=== PATIENT | female | born 1950 | race Caucasian/White ===

== ENCOUNTER 2019-08-28 06:11 | Day surgery (SDC) | payer MEDICARE, OTHER, SELFPAY ==
[2019-08-27 08:10] VITALS: BMI 21.9
[2019-08-28] MEDS: sodium chloride 0.9% 1,000 ML 30 ML IV (06:30)
[2019-08-28 06:40] VITALS: BP 124/68; PULSE 101; RESP 18; TEMP 36.8; O2SAT 99
--- NOTE | 2019-08-28 06:43 | ANES.PREANES ---
Pre-Anesthetic Assessment Pre-Anesthetic Assessment: Height/Weight: Height 1.57 m Weight 54.431 kg Temp Pulse Resp BP Pulse Ox 98.3 F 101 H 18 124/68 99 08/28/19 06:40 08/28/19 06:40 08/28/19 06:40 08/28/19 06:40 08/28/19 06:40 Preop Diagnosis: colon polyps Proposed Procedure: Operation Date: 08/28/19 07:00 Proposed Procedures p Colonoscopy(Not Applicable) - Alvino Hernandez MD Familial anesthetic complications: NO familial or personal history of problems with aneshthesia Was Beta Renita taken within 24 hours: N/A Last intake: Intake Last Liquid Date 08/28/19 Last Liquid Time 23:00 Last Solid Date 08/26/19NO Last Solid Time 18:00 Social: Social History: Tobacco (Former smoker - Quit 2015) and No alcohol Exam: Pre-Anes Outpt Exam: alert, oriented x 3, clear to auscultation bilaterally and regular rate & rhythm Airway: Cervical ROM: Other (two surgeries on neck - mildly restricted extensions) MP: 2 Additional comments: Dentures, has had epiglottis cancer Pulmonary: Pulmonary: COPD Comments: Hx of lung cancer - RUL resected, not on oxygen CV/HEM: CV/HEM: None reported : : None reported Hepatic: Hepatic: None reported GI: GI: None reported Metabolic: Metabolic: None reported Musc/skel: Musc/skel: None reported Neuropsych: Neuropsych: None reported Anesthetic Plan: ASA status: III Anesthesia: MAC Risk of > 500 ml blood loss (7ml/kg in children): No PFSH Anesthesia PFSH: Family History (Updated 08/27/19 @ 07:56 by Natalya Ferrell) Other Tuberculosis Social History (Updated 08/27/19 @ 08:01 by Natalya Ferrell) Smoking and tobacco status: former smoker Quit status (tobacco): has quit using tobacco Second hand smoke exposure: No Smoking risk assessment/counseling performed?: No Alcohol intake: current Alcohol intake frequency: few times a week Substance/Drug Use: never Desire information about substance/drug rehabilitation?: No Counseling given: No Lives independently: Yes Household members: none History of recent travel: No Data Anesthesia Cardiac Studies: No Data to Display
[2019-08-28] MEDS: sodium chloride 0.9% 1,000 ML 30 ML (06:47)
--- NOTE | 2019-08-28 07:03 | PM.HPUD ---
H&P update H&P Update: DATE OF SURGERY/PROCEDURE: 08/28/19 DATE H&P PERFORMED: 07/27/19 PLANNED PROCEDURE: Operation Date: 08/28/19 07:00 Proposed Procedures p Colonoscopy(Not Applicable) - Alvino Hernandez MD Full H&P HPI: PLANNED PROCEDURE: colonoscopy Perinent History: Family History: Family History (Updated 08/27/19 @ 07:56 by Natalya Ferrell) Other Tuberculosis Social History: Social History Smoking and tobacco status: former smoker Quit status (tobacco): has quit using tobacco Second hand smoke exposure: No Smoking risk assessment/counseling performed?: No Alcohol intake: current Alcohol intake frequency: few times a week Substance/Drug Use: never Desire information about substance/drug rehabilitation?: No Counseling given: No Lives independently: Yes Household members: none History of recent travel: No Pertinent Exam Findings: PHYSICAL EXAM: alert and oriented x 3 OTHER PERTINENT EXAM FINDINGS: Abdomen: soft A&P Assessment and plan (1) H/O adenomatous polyp of colon: colonoscopy under MAC Procedure, risks and benefits have been discussed with the patient Status: Acute Code(s): Z86.010 - Personal history of colonic polyps
[2019-08-28 07:25] VITALS: BP 93/66; PULSE 91; RESP 16; TEMP 36.4; O2SAT 100
--- NOTE | 2019-08-28 07:31 | ANE.PACU ---
 Inpatient post-anesthesia follow up: Vital signs: Temperature 97.6 F Pulse Rate [Apical ] 91 Respiratory Rate 16 Blood Pressure [Le ft Arm] 93/66 Pulse Oximetry 100 Oxygen Delivery Me thod Nasal Cannula Oxygen Flow Rate 3.0 Fraction of Inspir ed Oxygen Anesthesia Procedures Date of Procedure: 08/28/19
[2019-08-28 07:45] VITALS: BP 103/67; PULSE 82; RESP 18; O2SAT 96
== END 2019-08-28 07:55 | disposition home or self-care (01) ==
PROVIDERS: Family Provider Nurse Practitioner Family; PCP Nurse Practitioner Family; Visit Provider Surgery
PROC: 0DJD8ZZ Inspection of Lower Intestinal Tract, Via Natural or Artificial Opening Endoscopic (ICD-10-PCS; CPT 45378; principal; 2019-08-28 07:00)
DX: Z86.010 Personal history of colon polyps (principal); Z87.891 Personal history of nicotine dependence; J44.9 Chronic obstructive pulmonary disease, unspecified; Z85.41 Personal history of malignant neoplasm of cervix uteri; Z85.118 Personal history of other malignant neoplasm of bronchus and lung
CPT/HCPCS: 45378; J2001; J2370; J2704; J7030; J7050

== ENCOUNTER 2025-03-01 22:37 | Inpatient (IN) | payer OTHER, MEDICAID, SELFPAY ==
--- OUTSIDE RECORDS SUMMARY | 2025-03-01 10:00 | XMS_ITS | Encounter Summary ---
Author Organization [facility] Address [address] [place] [address] Care Team Providers Care Job Coach Name Role Phone David Walker MD Primary Care Provider [phone] Reason for Visit * Radiology Services (Routine) - Open Specialty Diagnoses / Procedures Referred By Sveta ray Referred To Contact Radiology Diagnoses Stenosis of right carotid artery Procedures US CAROTID DOPPLER Gonzalo Munson NP [address] [place] [address] Phone: tel: fax: [facility] Ultrasound [place] [address] [place] [address] Phone: tel: fax: Referral ID Status Reason Start Date Expiration Date Visits Re quested Visits Authorized [id number] Open 11/15/2024 12/16/2025 1 1 Encounter Details Date Type Department Care Team (Latest Contact Info) Description 03/01/2025 10:00 AM CDT Ancillary Procedure [facility] [place] [address] [place] [address] Gonzalo Munson NP [address] [place] [address] Stenosis of right carotid artery Social History Tobacco Use Types Packs/Day Years Used Date Smoking Tobacco: Former Cigarettes Q uit: 12/21/2015 Smokeless Tobacco: Never Alcohol Use Standard Drinks/Week Comments Not Currently 0 (1 standard drink = 0.6 oz pur e alcohol) occasional Financial Resource Strain Answer Date R ecorded How hard is it for you to pa y for the very basics like food, housing, medical care, and heating? Not hard at all 06/04/2022 Food Insecurity Answer Date Recorded In the past 12 months, have you worried that your food would run out before you had money to buy more? Never true 06/04/2022 In the past 12 months, did y ou run out of food and didn't have money to buy more? Never true 06/04/2022 Transportation Needs Answer Date Record ed In the past 12 months, has l ack of transportation kept you from medical appointments or from getting medications? No 06/04/2022 Lack of Transportation (Non-Medical) Not on file 06/04/2022 Feeling Safe Answer Date Recorded Are you in a relationship wi th someone who hurts you emotionally and/or physically? 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 Gender Identity Not on file Sexual Orientation Not on file documented as of this encounter Plan of Treatment Upcoming Encounters Date Type Department Care Team (Late st Contact Info) Description 05/01/2025 1:20 PM CDT Office Visit [facility] Medicine [place] [address] [facility] [address] [facility] [place] [address] Latricia Morgan FNP [address] [facility] [place] [address] Pending Results Name Type Priority Associated Diagnoses Date /Time US CAROTID DOPPLER Imaging Routine Stenosis of right carotid artery 03/01/2025 10:24 AM CDT documented as of this encounter Visit Diagnoses Diagnosis Stenosis of right carotid artery Occlusion and stenosis of carotid artery without mention of cerebral infarction documented in this encounter Additional Health Concerns Assessment Noted Time PHQ-9 Depression Total Score: 1 01/09/20 25 4:20 PM CDT documented as of this encounter Care Teams Job Coach Relationship Specialty Start Date End Date David Walker MD [address] [address] PCP - General Family Practice 01/08/20 documented as of this encounter
--- OUTSIDE RECORDS SUMMARY | 2025-03-01 11:00 | XMS_ITS | Encounter Summary ---
Author Organization [facility] Address 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 Gender Identity Not on file Sexual Orientation Not on file documented as of this encounter Last Filed Vital Signs Vital Sign Reading Time Taken Comments Blood Pressure 140/90 03/01/2025 10:25 AM CDT Pulse 88 03/01/2025 10:25 AM CDT Temperature - - Respiratory Rate - - Oxygen Saturation 92% 03/01/2025 10:25 AM CDT Inhaled Oxygen Concentration - - Weight 61.7 kg (136 lb) 03/01/2025 10:25 AM CDT Height 162.6 cm (5' 4 ) 03/01/2025 10:25 AM CDT Body Mass Index 23.34 03/01/2025 10:25 AM CDT documented in this encounter Plan of Treatment Upcoming Encounters Date Type Department Care Team (Late st Contact Info) Description 05/01/2025 1:20 PM CDT Office Visit [facility] Medicine [employer] [address] [facility] [address] [place] [address] [place] [address] Latricia Morgan FNP [address] [facility] [place] [address] documented as of this encounter Visit Diagnoses Not on filedocumented in this encounter Additional Health Concerns Assessment Noted Time PHQ-9 Depression Total Score: 1 01/09/20 4:20 PM CDT documented as of this encounter Care Teams Caddy Relationship Specialty Start Date End Date David Walker MD [address] [address] PCP - General Family Practice 01/08/20 documented as of this encounter
--- NOTE | 2025-03-01 22:47 | XRR_ITS ---
PROCEDURE INFORMATION: Exam: XR Chest Exam date and time: 03/01/2025 10:54 PM Age: 75 years old Clinical indication: Shortness of breath; Prior surgery; Surgery date: 6+ months; Surgery type: Lung; Additional info: SOB TECHNIQUE: Imaging protocol: Radiologic exam of the chest. Views: 1 view. COMPARISON: CR XR chest 1V [id number] 03/09/2018 4:29 PM FINDINGS: Lungs: Dense infiltrate left lung base. Pleural spaces: Unremarkable. No pleural effusion. No pneumothorax. Heart/Mediastinum: Unremarkable. No cardiomegaly. Bones/joints: Unremarkable. XR/XR chest 1V portable [id number] IMPRESSION: Dense infiltrate left lung base.
[2025-03-01 22:50] VITALS: PULSE 107; RESP 22; O2SAT 92
[2025-03-01 22:51] VITALS: BP 93/52; PULSE 106; RESP 24; TEMP 36.6; O2SAT 89; BMI 23.8
--- OUTSIDE RECORDS SUMMARY | 2025-03-01 22:51 | XMS_ITS | Encounter Summary ---
Author Organization [facility] Address [address] [place] [address] Care Team Providers Care Powerhouse Mechanic Supervisor Name Role Phone David Walker MD Primary Care Provider [phone] Encounter Details Date Type Department Care Team (Latest Contact Info) Description 10/15/2004 Outpatient Historical [facility] [address] [place] [address] Jaime Verdugo, [address] [place] [phone] (Work) CERVICAL DISC DEGEN (Primary Dx) Social History Tobacco Use Types Packs/Day Years Used Date Smoking Tobacco: Never Assessed Comments Unknown Sex and Gender Information Value Date Recorded Sex Assigned at Not on file Legal Sex Female 5:37 AM GLOBAL RECRUITER Gender Identity Not on file Sexual Orientation Not on file documented as of this encounter Plan of Treatment Not on file documented as of this encounter Visit Diagnoses Diagnosis Degeneration of cervical intervertebral disc- Primary documented in this encounter Additional Health Concerns Infection Onset Date Last Indicated Resolved Time R/O COVID-19 06/04/2020 06/04/2020 06/06/2020 1:16 AM CDT COVID-19 06/04/2020 06/04/2020 07/04/2020 8:09 PM GLOBAL RECRUITER documented as of this encounter Care Teams Powerhouse Mechanic Supervisor Relationship Specialty Start Date End Date David Walker MD [address] [id number] PCP - General Family Practice 01/08/20 documented as of this encounter
--- OUTSIDE RECORDS SUMMARY | 2025-03-01 22:51 | XMS_ITS | Clinical Summary ---
Author Organization [facility] Address [address] [place] [address] Care Team Providers Care Clinical Administrator Name Role Phone David Walker MD Primary Care Provider [phone] Allergies Active Allergy Reactions Criticality Noted Date Comments Iodinated Contrast Media Rash Low 03/01/2018 Medications aspirin (ECOTRIN EC) 81 mg Tablet, Delayed Release (E.C.) Take 1 Tablet (81 mg) by mouth daily. 90 Tablet 11 2 Active sennosides-docus ate sodium (SENNA-S) 8.6-50 mg tablet Take 1 Tablet by mouth 2 times daily. 90 Tablet 1 2 Active polyethylene glycol (MIRALAX) 17 gram Powder in Packet Take 1 Packet (17 Grams) by mouth 2 times daily as needed for Constipation. 90 Each 1 2 Active multivitamin (DAILY-JOSE) tablet Take 1 Tablet by mouth daily. Active Triamcinolone Acetonide (KENALOG) 0.025 % Ointment Apply to affected area 2 times daily. 15 Gram 4 Active nebulizerIndicat ions:Chronic obstructive pulmonary disease with acute exacerbation (CMS/HCC) Length of need 99 months Nebulizer with compressor, Kit: Disposable Nebulizer Kit, 2 per month, filters , areosol mask: Yes. Name of Medication: albuterol 1 Each 4 Active clopidogreL (PLAVIX) 75 mg TabletIndication s:Right-sided carotid artery disease, unspecified type Take 1 tablet by mouth once daily 100 Tablet 3 4 Active ondansetron (ZOFRAN ODT) 4 mg Tablet, Rapid Dissolve Take 4 mg by mouth every 8 hours as needed for Nausea/Emesis. Dissolve tablet on top of tongue, then swallow with saliva. Active levothyroxine 75 mcg tabletIndication s: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d TAKE 1 TABLET BY MOUTH ONCE DAILY IN THE MORNING *DOSE INCREASE* 100 Tablet 1 5 Active sertraline (ZOLOFT) 100 mg tabletIndication s:ANDRÉS (generalized anxiety disorder) TAKE 1 TABLET BY MOUTH ONCE DAILY . DOSE INCREASE 100 Tablet 1 5 Active atorvastatin (LIPITOR) 40 mg tablet TAKE 1 TABLET BY MOUTH ONCE DAILY AT BEDTIME 100 Tablet 1 5 Active omeprazole (PriLOSEC) 20 mg Capsule, Delayed Release(E.C.)Ind ications:Gastroe sophageal reflux disease without esophagitis Take 1 capsule by mouth once daily 100 Capsule 1 5 Active inhalational spacing device (BreatheRite MDI Spacer) Spacer For use with inhaler 1 Each 5 Active albuterol-budeso nide (Airsupra) 90-80 mcg/actuation HFA Aerosol Inhaler Take 2 Puffs by inhalation every 6 hours as needed for Other (See Comment) (Wheezing, Shortness of breath). 10.7 Gram 1 5 Active mometasone-formo terol (Dulera) 200-5 mcg/actuation inhaler Take 2 Puffs by inhalation 2 times daily. 13 Gram 1 5 Active albuterol (PROVENTIL,SAPPHIRE LY) 2.5 mg /3 mL (0.083 %) Solution for NebulizationIndi cations:Chronic obstructive pulmonary disease with acute exacerbation (CMS/HCC) Take 3 mL (2.5 mg) by inhalation every 6 hours as needed for Shortness of Breath. 360 mL 1 5 Active acetaminophen (TYLENOL) 500 mg tablet Take 1,000 mg by mouth every 6 hours as needed for Pain. For pain r/t back surgery Active ketoconazole (NIZORAL) 2 % Cream Apply to affected area daily for 14 days. 60 Gram 02/19/20 25 Active Problems Problem Noted Date Diagnosed Date Pneumonia of right upper lobe due to infectious organism 01/11/2025 Pneumonia of right middle lobe due to infectious organism 01/11/2025 Primary hypertension 01/11/2025 Malignant neoplasm of overla pping sites of left bronchus and lung 01/01/2025 Primary malignant neoplasm o f bronchus or lung of upper lobe 01/01/2025 Lesion of lung 01/01/2025 Former smoker 01/01/2025 Slow transit constipation 07/13/2024 Syncope 02/20/2024 Mild cognitive impairment 10/25/2023 History of TIA (transient ischemic attack) and s troke 05/22/2023 Chronic hyponatremia 12/21/2021 Prediabetes 12/01/2021 Right-sided carotid artery disease 12/01/2021 Cerebral atrophy 12/01/2021 History of CVA with residual deficit 12/01/2021 Cerebrovascular disease 12/01/2021 Stenosis of right carotid artery 11/25/2021 COPD with acute exacerbation 11/15/2021 Poor appetite 11/15/2021 ANDRÉS (generalized anxiety disorder) 12/30/2020 Dyslipidemia, goal LDL below 70 12/30/2020 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 d 01/24/2020 Chronic obstructive bronchitis 01/08/2020 History of lobectomy of lung 01/08/2020 Gastroesophageal reflux disease without esophagi tis 01/08/2020 Bilateral sensorineural hearing loss 03/22/2018 Tinnitus, bilateral 03/22/2018 Cerebral aneurysm 12/27/2017 History of lung cancer 06/30/2017 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 Overview (12/19/2020): SCCA of Left neck 3 cycles cisplatin ([place]) Personal history of colonic polyps 09/03/2013 Varicose veins of lower extr emities with other complications 03/19/2010 Unspecified venous (peripheral) insufficiency Resolved Problems Problem Noted Date Diagnosed Date Resolved Date Gastroenteritis 01/11/2025 01/11/2025 Focal neurological deficit 11/25/2021 0 12/01/2021 Influenza with pneumonia 11/15/202109/2021 Viral pneumonia 11/14/2021 12/21/2021 Encounters Date Type Department Care Team Description 03/01/2025 11:00 AM CDT Office Visit [facility] [place] [id number] [facility] [address] [place] [phone] Gonzalo Munson NP 03/01/2025 10:00 AM CDT Ancillary Procedure [facility]- [place] [id number] [facility] [address] [place] [phone] Gonzalo Munson NP Stenosis of right carotid artery 2025 Telephone [facility] [place] [phone] [facility] [address] [place] [address] Gonzalo Munson NP Appointment Verification 02/25/2025 Patient Outreach [facility] [address] [place] [address] David Walker MD Breast Cancer Screening (Called to schedule mammogram. Unable to leave message. Sent [facility] message. If patient calls, please schedule mammogram or transfer call to [facility] [phone] or the [facility] [place] where patient would like to have mammogram. ); Primary Care Outreach (Called to schedule mammogram. Unable to leave message. Sent [facility] message. If patient calls, please schedule mammogram or transfer call to [facility] [phone] or the [facility] [place] where patient would like to have mammogram. ) 02/18/2025 Telephone [facility] [place] [address] [facility] [address] [place] [phone] David Walker MD Provider Call 02/14/2025 External Device Data Initial Department [address] [place] [address] Dr MONTOYA: [place] [address] [facility] 02/04/2025 External Device Data Initial Department [address] [place] [address] Dr MONTOYA: [place] [address] [facility] 02/04/[address] [address] Kristin Haile RN [facility] Care Connect 01/31/2025 External Device Data Initial Department [address] [place] [address] Dr MONTOYA: Prelude ADT [place], [place] [address], 01/28/2025 External Device Data Initial Department [address] [place] [address] Dr MONTOYA: Prelude ADT [place], [place] [address], 01/21/2025 External Device Data Initial Department [address] [place] [address] Dr MONTOYA: Prelude ADT [place], [place] [address], 01/17/2025 External Device Data Initial Department [address] [place] [address] Dr MONTOYA: Prelude ADT [place], [place] [address], 01/16/2025 1:40 PM CDT Office Visit [address] [address] Latricia Morgan FNP Pneumonia of right middle lobe due to infectious organism (Primary Dx); Pneumonia of right upper lobe due to infectious organism 01/15/2025 External Device Data STL ABSTRACTION Provider, Abstract 01/12/2025 External Device Data Initial Department [address] [place] [address] Dr MONTOYA: [place] [address] Lance Matthews Md 01/11/[address] [facility] [address] [place] [address] David Walker MD Hospital discharge follow-up (Primary Dx) 01/08/2025 1:34 PM CDT - 01/11/2025 11:10 AM CDT Hospital Encounter [facility] [address] [place] [address] Rhoda Akbar MD COPD with acute exacerbation ([facility]/HCC) Discharge Disposition: Home or Self Care 01/08/2025 Travel 01/07/2025 External Device Data Initial Department [address] [place] [address] Dr MONTOYA: Prelude ADT [place], [place] [address]Elkin Matthews Md 01/03/[address] [address] Sandra Moeller, WILLIAM [facility] 01/03/2025 External Device Data Initial Department [address] [place] [address] Dr MONTOYA: Prelude ADT [facility] [place] [address]Elkin Matthews Md 01/01/2025 3:40 PM CDT Office Visit [address] [phone] Latricia Morgan FNP Chronic obstructive pulmonary disease with acute exacerbation (CMS/HCC) (Primary Dx); Screening mammogram, encounter for 01/01/2025 External Device Data STL ABSTRACTION Provider, Abstract 01/01/2025 External Device Data STL ABSTRACTION Provider, Abstract 12/31/2024 External Device Data Initial Department [address] [place] [address] Dr MONTOYA: Prelude NICOLE [facility] [place] [address]Elkin Matthews Md 12/31/[address] [address] David Walker MD Ed Follow-up 12/30/2024 External Device Data Initial Department [address] [place] [address] Dr MONTOYA: Prelude ADT [facility] [place] [address]Elkin Matthews Md 12/29/2024 10:19 AM CDT - 12/29/2024 1:25 PM CDT Emergency [facility] Emergency Medicine [address] [address] Yves Lopez DO COPD with exacerbation (CMS/HCC) (Primary Dx); Mild anemia; Pneumonia of left upper lobe due to infectious organism Discharge Disposition: Home or Self Care 12/29/2024 Travel 12/27/2024 External Device Data Initial Department [address] [place] [address] Dr MONTOYA: [place] [address]Elkin Matthews Md 12/25/[address] [phone] Latricia Morgan FNP Gastroesophageal reflux disease without esophagitis 12/24/2024 External Device Data Initial Department [address] [place] [address] Dr MONTOYA: [place] [address]Elkin Matthews Md 12/24/2024 Telephone [facility] [address] [place] [phone] Gonzalo Munson NP Appointment Notification 12/20/2024 External Device Data Initial Department [address] [place] [address] Dr MONTOYA: [place] [address] [facility] 12/13/2024 External Device Data Initial Department [address] [place] [address] Dr MONTOYA: [place] [address] [facility] 12/06/2024 External Device Data Initial Department [address] [place] [address] Dr MONTOYA: [place] [address] [facility] 12/03/2024 External Device Data Initial Department [address] [place] [address] Dr MONTOYA: Prelude ADT [place], [place] [address] [place] [address] EmergencyMd from Last 3 Months Immunizations Immunization Administration Dates Next Due (ADACEL/BOOSTRIX)(10 YR UP) TDAP VACCINE, 0.5ML, IM 12/04/2013 (SPIKEVAX) (12 YRS UP PRIMAR Y SERIES) COVID-19 VACCINE - MRNA-1273(PF) 100 MCG/0.5 ML IM SUSP 10/03/2020 (TDVAX)(7 YRS UP) TETANUS AN D DIPHTHERIA TOXOIDS, ADSORBED (2 LF OF TETANUS TOXOID AND 2 LF OF DIPHTHERIA TOXOID), 0.5ML (PF), IM 12/08/2006 INFLUENZA VACCINE HIGH DOSE QUADRIVALENT 65 YR UP PF IM 07/07/2022,07/10/2021,06/30/2020 INFLUENZA VACCINE HIGH DOSE TRIVALENT SPLIT VIRUS, (65 YR UP), 0.5ML (PF), IM 07/10/2024 INFLUENZA VACCINE QUADRIVALE NT 6 MOS UP CELL DERIVED PF IM 06/20/2018 INFLUENZA VACCINE QUADRIVALE NT ADJ 65 YR UP PF IM 06/28/2023 Influenza Vaccine Tri Split 4+ Pf Im 09/22/2017, 06/21/2017 Family History Medical History Relation Name Comments Healthy Father Respiratory Disease Maternal Grandfather Other Maternal Grandmother TB Other Mother TB Respiratory Disease Paternal Grandfather Unknown Paternal Grandmother Breast Cancer Sister Colon Cancer Neg Hx Relation Name Status Comments Father Maternal Grandfather Maternal Grandmother Mother Paternal Grandfather Paternal Grandmother Sister Social History Tobacco Use Types Packs/Day Years Used Date Smoking Tobacco: Former Cigarettes Q uit: 12/21/2015 Smokeless Tobacco: Never Tobacco Cessation:Counseling Given: No Alcohol Use Standard Drinks/Week Comments Not Currently [...] on file Legal Sex Female 7:55 AM 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 Gender Identity Not on file Sexual Orientation Not on file Last Filed Vital Signs Vital Sign Reading Time Taken Comments Blood Pressure 140/90 03/01/2025 10:25 AM CDT Pulse 88 03/01/2025 10:25 AM CDT Temperature 36.6 C (97.9 F) 01/16/2025 1:24 PM CDT Respiratory Rate 23 01/16/2025 1:24 PM CDT Oxygen Saturation 92% 03/01/2025 10:25 AM CDT Inhaled Oxygen Concentration - - Weight 61.7 kg (136 lb) 03/01/2025 10:25 AM CDT Height 162.6 cm (5' 4 ) 03/01/2025 10:25 AM CDT Body Mass Index 23.34 03/01/2025 10:25 AM CDT Plan of Treatment Upcoming Encounters Date Type Department Care Team (Late st Contact Info) Description 05/01/2025 1:20 PM CDT Office Visit [facility] Dwayne Jackson [address] [facility] [address] [facility] [place] [address] Eddie Latricia, CORDUROY CUTTER OPERATOR [address] [facility] [place] [phone] Health Maintenance Due Date Last Done Comments PNEUMOCOCCAL VACCINE 50+ YEA RS (1 of 2 - PCV) 02/26/1971 FIT-DNA Q 3 years 02/26/1997 FIT/FOBT Q 1 year 02/26/1997 Flex Sig/CT Colonography Q 5 years 02/26/1997 ZOSTER VACCINE (1 of 2) 02/26/2002 RSV VACCINE (60+ or ) (1 - Risk 60-74 years 1-dose series) 2012 OSTEOPOROSIS SCREENING 02/26/2017 COLORECTAL SCREENING 08/28/2022 08/28/2019, 08/28/2019, 08/28/2019, Additional history exists Colorectal Cancer Screening 08/28/2022 DTAP/TDAP/TD VACCINES (2 - T d or Tdap) 12/05/2023 12/04/2013, 12/08/2006 COVID-19 Vaccine (4 - 2023-2 5 season) 2024 08/20/2021, 10/31/2020, 10/03/2020 Medicare Advantage ([place]) Preventative Visit/Annual Wellness Visit 08/22/2024 04/30/2024, 06/04/2022 INFLUENZA VACCINE (#1) 2025 4, 06/28/2023, 07/07/2022, Additional history exists BREAST CANCER SCREENING 06/21/2025 06/21/20 24, 06/21/2024, 06/08/2023, Additional history exists Procedures Procedure Name Priority Date/Time Associated Diagnosis Comments TELEMETRY REPORT 01/15/2025 7:13 AM CDT COMPREHENSIVE METABOLIC PANEL Routine 01/11/2025 5:25 AM CDT CBC WITH DIFFERENTIAL Routine 01/11/2025 5:25 AM CDT COMPREHENSIVE METABOLIC PANEL Routine 01/10/2025 6:00 AM CDT CBC WITH DIFFERENTIAL Routine 01/10/2025 6:00 AM CDT COMPREHENSIVE METABOLIC PANEL Routine 01/09/2025 9:25 AM CDT CBC WITH DIFFERENTIAL Routine 01/09/2025 9:25 AM CDT BLOOD CULTURE Stat 01/08/2025 3:14 PM CDT BLOOD CULTURE Stat 01/08/2025 3:14 PM CDT BLOOD CULTURE Stat 01/08/2025 3:09 PM CDT BLOOD CULTURE Stat 01/08/2025 3:09 PM CDT XR CHEST PA OR AP 1 VW Stat 01/08/2025 2:22 PM CDT COVID-19 ANTIGEN Stat 01/08/2025 2:08 PM CDT INFLUENZA VIRUS A AND B, ANTIGEN DETECTION Stat 01/08/2025 2:08 PM CDT PULSE OXIMETRY, CONTINUOUS Stat 01/08/2025 1:57 PM CDT BRAIN NATRIURETIC PEPTIDE, BNP OR PROBNP Stat 01/08/2025 1:57 PM CDT COMPREHENSIVE METABOLIC PANEL Stat 01/08/2025 1:57 PM CDT CBC WITH DIFFERENTIAL Stat 01/08/2025 1:57 PM CDT TROPONIN 2 HR, 5TH GEN Timed Study 12/29/2024 12:51 PM CDT XR CHEST PA AND LATERAL 2 VW Stat 12/29/2024 11:42 AM CDT EKG 12-LEAD Stat 12/29/2024 11:04 AM CDT COVID-19 ANTIGEN Stat 12/29/2024 11:0 2 AM CDT INFLUENZA VIRUS A AND B, ANTIGEN DETECTION Stat 12/29/2024 11:02 AM CDT TROPONIN BASELINE, 5TH GEN Stat 12/29/2024 10:53 AM CDT LACTIC ACID Stat 12/29/2024 10:53 AM CDT BRAIN NATRIURETIC PEPTIDE, BNP OR PROBNP Stat 12/29/2024 10:53 AM CDT COMPREHENSIVE METABOLIC PANEL Stat 12/29/2024 10:53 AM CDT D-DIMER Stat 12/29/2024 10:53 AM CDT CBC WITH DIFFERENTIAL Stat 12/29/2024 10:53 AM CDT MAMMO SCREEN BILAT W OR WO CAD Routine 04/15/2022 ENDOSCOPY, COLON, SCREENING 08/28/2019 12:00 AM 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 from Last 3 Months or Most Recently Relevant to Health Maintenance Results * TELEMETRY REPORT (01/15/2025 7:13 AM CDT) us Provider Scanning ECG ORDERABLES Final Result * (ABNORMAL) CBC WITH DIFFERENTIAL (01/11/2025 5:25 AM CDT) Only the most recent of5 resultswithin the time period is included. WBC 10.5(H) 4.0 - 10.0 K/uL 01/11/2025 5:37 AM CDT [facility] RBC 3.53(L) 3.93 - 5.22 M/uL 01/11/2025 5:37 AM CDT [facility] HEMOGLOBIN 9.3(L) 11.2 - 15.7 g/dL 01/11/2025 5:37 AM [facility] HEMATOCRIT 28.3(L) 34.1 - 44.9 % 01/11/2025 5:37 AM [facility] MCV 80.2 79.4 - 94.8 fL 01/11/2025 5:37 AM [facility] MCH 26.3 25.6 - 32.2 pg 01/11/2025 5:37 AM [facility] MCHC 32.9 32.2 - 35.5 g/dL 01/11/2025 5:37 AM [facility] RDW 15.9(H) 11.0 - 14.5 % 01/11/2025 5:37 AM [facility] RDW-STDEV 45.8 36.9 - 56.9 fL 01/11/2025 5:37 AM [facility] PLATELETS 422(H) 163 - 337 K/uL 01/11/2025 5:37 AM [facility] MPV 8.7(L) 10.0 - 14.8 fL 01/11/2025 5:37 AM [facility] NEUTROPHILS 80(H) 34 - 71 % 01/11/2025 5:37 AM [facility] LYMPHOCYTES 11(L) 19 - 52 % 01/11/2025 5:37 AM [facility] MONOCYTES 9 5 - 13 % 01/11/2025 5:37 AM [facility] EOSINOPHILS 0(L) 1 - 6 % 01/11/2025 5:37 AM [facility] BASOPHILS 0 0 - 1 % 01/11/2025 5:37 AM [facility] IMMATURE GRANULOCYTES 1 % 01/11/2025 5:37 AM [facility] NEUTROPHIL ABSOLUTE 8.40(H) 1.56 - 6.13 K/uL 01/11/2025 5:37 AM [facility] LYMPHOCYTE ABSOLUTE 1.12(L) 1.20 - 3.40 K/uL 01/11/2025 5:37 AM CDT [facility] MONOCYTE ABSOLUTE 0.92(H) 0.24 - 0.36 K/uL 01/11/2025 5:37 AM T [facility] EOSINOPHIL ABSOLUTE 0.01(L) 0.04 - 0.36 K/uL 01/11/2025 5:37 AM T [facility] BASOPHILS ABSOLUTE 0.01 0.01 - 0.08 K/uL 01/11/2025 5:37 AM T [facility] IMMATURE GRANULOCYTES ABSOLUTE 0.06 K/uL 01/11/2025 5:37 AM [facility] Blood BLOOD SPECIMEN / Unknown Venipuncture / Unknown 01/11/2025 5:25 AM CDT 01/11/2025 5:30 AM CDT us Garett Sanchez DO HEMATOLOGY ORDERABLES Final Res ult [facility] [id number] [address] [place] [id number] * (ABNORMAL) COMPREHENSIVE METABOLIC PANEL (01/11/2025 5:25 AM CDT) Only the most recent of5 resultswithin the time period is included. SODIUM 135(L) 136 - 145 mmol/L 01/11/2025 5:50 AM [facility] POTASSIUM 3.7 3.5 - 5.1 mmol/L 01/11/2025 5:50 AM [facility] CHLORIDE 99 98 - 107 mmol/L 01/11/2025 5:50 AM [facility] CO2 26 22 - 29 mmol/L 01/11/2025 5:50 AM [facility] CALCIUM 9.3 8.8 - 10.2 mg/dL 01/11/2025 5:50 AM [facility] BUN 13 8 - 23 mg/dL 01/11/2025 5:50 AM [facility] CREATININE 0.61 0.51 - 0.95 mg/dL 01/11/2025 5:50 AM [facility] Comment:The GFR result is no t clinically significant on patients <18 or >70 years of age. GLUCOSE 91 74 - 99 mg/dL 01/11/2025 5:50 AM [facility] TOTAL PROTEIN 6.3(L) 6.6 - 8.7 g/dL 01/11/2025 5:50 AM [facility] ALBUMIN 3.7 3.5 - 5.2 g/dL 01/11/2025 5:50 AM [facility] BILIRUBIN TOTAL 0.2 0.0 - 1.2 mg/dL 01/11/2025 5:50 AM [facility] ALKALINE PHOSPHATASE 74 35 - 104 U/L 01/11/2025 5:50 AM [facility] AST 18 0 - 35 U/L 01/11/2025 5:50 AM [facility] ALT 16 0 - 35 U/L 01/11/2025 5:50 AM [facility] GFR >60 mL/min/1.7 3 sq meter 01/11/2025 5:50 AM [facility] Comment:eGFR calculated with 2020 CKD-EPI equation. Vegetarian diet, extremely high or low muscle mass, and may affect results. Cystatin C with Glomerular Filtration Rate is a suitable alternative for these patients. ANION GAP 10 5 - 20 mmol/L 01/11/2025 5:50 AM [facility] Blood BLOOD SPECIMEN / Unknown Venipuncture / Unknown 01/11/2025 5:25 AM CDT 01/11/2025 5:30 AM CDT us Garett Sanchez DO CHEMISTRY ORDERABLES Final Resu lt [facility] CLIA # [id number] [address] [place] [id number] * BLOOD CULTURE (01/08/2025 3:14 PM CDT) Only the most recent of2 resultswithin the time period is included. BLOOD CULTURE No growth 01/14/2025 8:15 PM CDT [facility] Blood (Peripheral) Collection / Unknown 01/08/2025 3:14 PM CDT 01/08/2025 3:29 PM CDT Rhoda Akbar MD MICROBIOLOGY - GENERAL ORDER LEON Final Result [facility] CLIA # [id number] [address] [facility] [place] [address] * XR CHEST PA OR AP 1 VW (01/08/2025 2:22 PM CDT) Anatomical Region Laterality Modality Chest Computed Radiogr aphy 01/08/2025 2:22 PM CDT Impressions 01/08/2025 2:29 PM CDT IMPRESSION: Airspace opacities scattered throughout the right mid and upper lung are new and likely represent pneumonia, correlate clinically. Small amount scarring in the lower lungs bilaterally. Right thoracotomy. Right hilar operative change. Emphysema and hyperinflation both lungs. Remainder unremarkable. Narrative 01/08/2025 2:29 PM CDT Exam: Radiographs: XR CHEST PA OR AP 1 VW Indication: Shortness of breath Comparison: Chest x-ray dated 12/29/2024 Procedure Note Tomy Flores MD - 01/08/2025 Exam: Radiographs: XR CHEST PA OR AP 1 VW Indication: Shortness of breath Comparison: Chest x-ray dated 12/29/2024 IMPRESSION: Airspace opacities scattered throughout the right mid and upper lung are new and likely represent pneumonia, correlate clinically. Small amount scarring in the lower lungs bilaterally. Right thoracotomy. Right hilar operative change. Emphysema and hyperinflation both lungs. Remainder unremarkable. us Rhoda Akbar MD DIAGNOSTIC IMAGING ORDERABLE S Final Result * COVID-19 ANTIGEN (01/08/2025 2:08 PM CDT) Only the most recent of2 resultswithin the time period is included. COVID-19 ANTIGEN Presumptive Negative Presumptive Negative 01/08/2025 2:30 PM CDT [facility] Upper Respiratory ANTERIOR NARES SWAB / Unknown Collection / Unknown 01/08/2025 2:08 PM CDT 01/08/2025 2:14 PM CDT [facility] - 01/08/2025 2:30 PM CDT Adamaris SARS antigen test has been authorized by FDA under an emergency use authorization (EUA) and has been authorized only for the detection of proteins from SARS-CoV-2 and influenza, not for any other viruses or pathogens. Adamaris SARS Antigen KARMEN is intended for the simultaneous qualitative detection and differentiation of nucleocapsid protein antigen from SARS-CoV-2 directly from nasopharyngeal (COUNTER SERVER) and nasal (NS) swab specimens collected from individuals who are suspected of respiratory viral infection consistent with COVID-19 by their healthcare provider within the first five (5) days of symptom onset when tested at least twice over three days with at least 48 hours between tests, or from individuals without symptoms or other epidemiological reasons to suspect COVID-19 when tested at least three times over five days with at least 48 hours between tests. This test is only authorized for the duration of the declaration that circumstances exist justifying the authorization of emergency use of in vitro diagnostics for detection and/or diagnosis of the virus that causes COVID-19 under Section 564(b)(1) of the Act, 21 U.S.C. 360bbb-3(b)(1), unless the authorization is terminated or revoked sooner. Negative results should be treated as presumptive and confirmed with a molecular assay, if necessary for patient care. Serial testing should be performed in individuals with negative results at least twice over three days (with 48 hours between tests) for symptomatic individuals or from individuals without symptoms or other epidemiological reasons to suspect COVID-19 when tested at least three times over five days with at least 48 hours between tests. Rhoda Akbar MD MICROBIOLOGY - GENERAL ORDER LEON Final Result [facility] CLIA # [id number] [address] [place] [address] [id number] * INFLUENZA VIRUS A AND B, ANTIGEN DETECTION (01/08/2025 2:08 PM CDT) Only the most recent of2 resultswithin the time period is included. Pathologist [facility] INFLUENZA A AG NOT DETECTED Not Detected 01/08/2025 2:30 PM CDT [facility] INFLUENZA B AG NOT DETECTED Not Detected 01/08/2025 2:30 PM CDT [facility] Upper Respiratory ENTIRE NASOPHARYNX / Unknown Collection / Unknown 01/08/2025 2:08 PM CDT 01/08/2025 2:14 PM CDT Narrative [facility] - 01/08/2025 2:30 PM CDT Negative results do not rule out infection. If clinically indicated, consider PCR testing which is more sensitive than antigen testing. If PCR testing is desired, consult with your local laboratory as sample recollection may be required. Rhoda Akbar MD MICROBIOLOGY - GENERAL ORDER LEON Final Result [facility] CLIA # [id number] [address] [place] [id number] * (ABNORMAL) BRAIN NATRIURETIC PEPTIDE, BNP OR PROBNP (01/08/2025 1:57 PM CDT) Only the most recent of2 resultswithin the time period is included. [facility] PROBNP, N TERMINAL 813(H) 0 - 125 pg/mL 01/08/2025 2:16 PM CDT [facility] Comment: INTERPRETIVE COMMENT based on diagnosis: Diagnostic NT pro-BNP cutoffs for Heart Failure in the absence of renal failure is suggested for the following ranges <75 years: <125 pg/mL >=75 years: <450 pg/mL Exclusionary rule out cut-point for Acute Decompensated Heart Failure(ADHF) All ages: <300 pg/mL Diagnostic NT pro-BNP cutoffs for Acute Decompensated Heart Failure(ADHF) in the absence of renal failure is suggested for the following ages <50 years: > 450 pg/mL 50-75 years: > 900 pg/mL >75 years: >1800 pg/mL Blood BLOOD SPECIMEN / Unknown Collection / Unknown 01/08/2025 1:57 PM CDT 01/08/2025 1:58 PM CDT Rhoda Akbar MD CHEMISTRY ORDERABLES Final R esult Performing Organization Address [facility] Co de Phone Number [facility] CLIA # [id number] [address] [place] [address] * TROPONIN 2 HR, 5TH GEN (12/29/2024 12:51 PM CDT) TROPONIN T, 2 HR 5TH GEN 10 <=10 ng/L 12/29/2024 1:12 PM CDT [facility] DELTA 2HR TROPONIN T -3 See Interp. 12/29/2024 1:12 PM CDT [facility] Blood Venipuncture / Unknown 12/29/2024 12:51 PM CDT 12/29/2024 12:52 PM CDT Narrative [facility] - 12/29/2024 1:12 PM CDT Troponin Detectable but normal range. Delta not changing. Yves Lopez DO CHEMISTRY ORDERABLES Final Re sult Performing Organization Address [facility] Co de Phone Number [id number] [address] [place] [id number] * XR CHEST PA AND LATERAL 2 VW (12/29/2024 11:42 AM CDT) Anatomical Region Laterality Modality Chest Computed Radiogr aphy 12/29/2024 11:4 2 AM CDT Impressions 12/29/2024 11:50 AM CDT IMPRESSION: Please see below. Exam: XR CHEST PA AND LATERAL 2 VW Date/Time of Exam: 12/29/2024 11:42 AM Reason For Exam: Congestion;COPD. Diagnosis: COPD with exacerbation (CMS/HCC); Mild anemia; Pneumonia of left upper lobe due to infectious organism. Comparison: 05/13/2024. Findings: The lungs are hyperaerated with flattening of the hemidiaphragms and increase in retrosternal airspace. Stable cardiomediastinal mediastinal silhouette with bibasilar linear scar versus platelike atelectasis. Stable left lower lobe spiculated nodular opacity. No acute consolidative airspace disease, pleural effusion, or pneumothorax identified.. Surgical clips of the right upper quadrant and mediastinum present. Impression: 1. Radiographic findings compatible with underlying chronic obstructive pulmonary disease with persistent left lower lobe spiculated nodule. 2. Linear scar versus plate like atelectasis of the right lung base.. Narrative Procedure Note Tami Ramirez MD - 12/29/2024 IMPRESSION: Please see below. Exam: XR CHEST PA AND LATERAL 2 VW Date/Time of Exam: 12/29/2024 11:42 AM Reason For Exam: Congestion;COPD. Diagnosis: COPD with exacerbation (CMS/HCC); Mild anemia; Pneumonia of left upper lobe due to infectious organism. Comparison: 05/13/2024. Findings: The lungs are hyperaerated with flattening of the hemidiaphragms and increase in retrosternal airspace. Stable cardiomediastinal mediastinal silhouette with bibasilar linear scar versus platelike atelectasis. Stable left lower lobe spiculated nodular opacity. No acute consolidative airspace disease, pleural effusion, or pneumothorax identified.. Surgical clips of the right upper quadrant and mediastinum present. Impression: 1. Radiographic findings compatible with underlying chronic obstructive pulmonary disease with persistent left lower lobe spiculated nodule. 2. Linear scar versus plate like atelectasis of the right lung base.. Yves Lopez DO DIAGNOSTIC IMAGING ORDERABLES Final Result * EKG 12 lead (12/29/2024 11:04 AM CDT) Narrative Yves Lopez DO - 12/29/2024 11:04 AM CDT Yves Lopez DO 12/29/2024 1:19 PM EKG 12 lead Date/Time: 12/29/2024 11:04 AM Performed by: Yves Lopez DO Authorized by: Yves Lopez DO Rate: ECG rate: 84 ECG rate assessment: age appropriate Rhythm: Rhythm Origin: sinus [place]: QRS axis: Normal Intervals: normal QRSTT: QRSTT changes: No Comments: Computer interpretation normal sinus rhythm, normal ECG. Rate 84, RI interval 186, QRS duration 72, QT/QTc 372/439, QRS axis 11. Agree with computer. Yves Lopez DO ECG ORDERABLES Final Result * (ABNORMAL) TROPONIN BASELINE, 5TH GEN (12/29/2024 10:53 AM CDT) TROPONIN T, BASELINE 5TH GEN 13(H) <=10 ng/L 12/29/2024 11:22 AM CDT [facility] Blood Venipuncture / Unknown 12/29/2024 10:53 AM CDT 12/29/2024 10:57 AM CDT Narrative [facility] - 12/29/2024 11:22 AM CDT Troponin elevated. Yves Lopez DO CHEMISTRY ORDERABLES Final Re sult Performing Organization Address City/[facility]/ZIP Co de Phone Number [facility] CLIA # [id number] [address] [place] [id number] * LACTIC ACID (12/29/2024 10:53 AM CDT) LACTIC ACID 0.7 <=2.0 mmol/L 12/29/2024 11:17 AM CDT [facility] Blood BLOOD SPECIMEN / Unknown Venipuncture / Unknown 12/29/2024 10:53 AM CDT 12/29/2024 10:57 AM CDT Yves Lopez DO CHEMISTRY ORDERABLES Final Re sult Performing Organization Address City/[facility]/ZIP Co de Phone Number [facility] CLIA # [id number] [address] [place] [address] * (ABNORMAL) D-DIMER (12/29/2024 10:53 AM CDT) D-DIMER QUANT 0.66(H) <0.50 ug/mL FEU 12/29/2024 11:17 AM CDT [facility] Blood Venipuncture / Unknown 12/29/2024 10:53 AM CDT 12/29/2024 10:57 AM CDT Narrative [facility] - 12/29/2024 11:17 AM CDT D-Dimer assay cutoff value for exclusion of DVT and/or PE is <0.50 ug/mL FEU. As D-Dimer levels increase naturally with age, age stratification for patients over 50 is potentially more appropriate in determining whether a patient should undergo further evaluation for DVT and/or PE than a general cutoff of 0.50 ug/mL FEU. Clinical consideration is recommended. Age Stratified Cutoff Values: 50-60 years: 0.50-0.60 ug/mL FEU 61-70 years: 0.61-0.70 ug/mL FEU 71-80 years: 0.71-0.80 ug/mL FEU us Yves Lopez DO HEMATOLOGY ORDERABLES Final R esult [facility] CLIA # [id number] [address] [place] [id number] * MAMMO SCREEN BILAT W OR WO CAD (04/15/2022) Anatomical Region Laterality Modality Breast Bilateral Mammography us Abstract Provider MAMMO ORDERABLES Final Result * ENDOSCOPY, COLON, SCREENING (08/28/2019 12:00 AM 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) us Sgf Scanning GI PROCEDURE ORDERABLES Final Re sult from Last 3 Months or Most Recently Relevant to Health Maintenance Insurance MEDICAID [facility] DUAL COMPLETE HMO DSNP [facility] [id number] Advance Directives For more information, please contact: [phone] * Full Code (Latest Code Status on File) Date Activated Date Inactivated Comments 01/09/2025 8:17 AM 01/11/2025 1:51 PM * Full Code Date Activated Date Inactivated Comments 05/22/2023 11:47 PM 05/24/2023 7:20 PM * Default Full Code - Needs Discussion Date Activated Date Inactivated Comments 11/25/2021 2:55 AM 11/26/2021 8:18 PM * Full Code Date Activated Date Inactivated Comments 11/14/2021 12:06 AM 11/15/2021 6:55 PM Care Teams Clinical Administrator Relationship Specialty Start Date End Date David Walker MD [address] [address] PCP - General Family Practice 01/08/20
--- OUTSIDE RECORDS SUMMARY | 2025-03-01 22:51 | XMS_ITS | Encounter Summary ---
Author Organization [facility] Address [address] [place] [address] Care Team Providers Care Director Of Convention Services Name Role Phone David Walker MD Primary Care Provider [phone] Encounter Details Date Type Department Care Team (Latest Contact Info) Description 07/31/2002 Outpatient Historical [facility] [address] [place] [address] Jomar Curry DO NO ADDRESS ON FILE ACUTE BRONCHITIS (Primary Dx) Social History Tobacco Use Types Packs/Day Years Used Date Smoking Tobacco: Never Assessed Comments Unknown Sex and Gender Information Value Date Recorded Sex Assigned at Not on file Legal Sex Female 5:37 AM CHUMMER Gender Identity Not on file Sexual Orientation Not on file documented as of this encounter Plan of Treatment Not on file documented as of this encounter Visit Diagnoses Diagnosis Acute bronchitis- Primary documented in this encounter Additional Health Concerns Infection Onset Date Last Indicated Resolved Time R/O COVID-19 06/04/2020 06/04/2020 06/06/2020 1:16 AM CDT COVID-19 06/04/2020 06/04/2020 07/04/2020 8:09 PM CHUMMER documented as of this encounter Care Teams Director Of Convention Services Relationship Specialty Start Date End Date David Walker MD [address] [facility] [address] [place] [phone] PCP - General Family Practice 01/08/20 documented as of this encounter
--- OUTSIDE RECORDS SUMMARY | 2025-03-01 22:51 | XMS_ITS | Encounter Summary ---
Author Organization [facility] Address [address] [place] [address] Care Team Providers Care Simulation Tech Name Role Phone David Walker MD Primary Care Provider [phone] Encounter Details Date Type Department Care Team (Latest Contact Info) Description 01/20/1999 Outpatient Historical [facility] Medicine- [place] [address] [place] [address] Jomar Curry DO NO ADDRESS ON FILE Acute upper respiratory infections of unspecified site (Primary Dx) Social History Tobacco Use Types Packs/Day Years Used Date Smoking Tobacco: Never Assessed Comments Unknown Sex and Gender Information Value Date Recorded Sex Assigned at Not on file Legal Sex Female 5:37 AM WINDOW TRIMMER APPRENTICE Gender Identity Not on file Sexual Orientation Not on file documented as of this encounter Plan of Treatment Not on file documented as of this encounter Visit Diagnoses Diagnosis Acute upper respiratory infections of unspecified site- Primary documented in this encounter Additional Health Concerns Infection Onset Date Last Indicated Resolved Time R/O COVID-19 06/04/2020 06/04/2020 06/06/2020 1:16 AM CDT COVID-19 06/04/2020 06/04/2020 07/04/2020 8:09 PM WINDOW TRIMMER APPRENTICE documented as of this encounter Care Teams Simulation Tech Relationship Specialty Start Date End Date David Walker MD [address] [phone] PCP - General Family Practice 01/08/20 documented as of this encounter
--- OUTSIDE RECORDS SUMMARY | 2025-03-01 22:51 | XMS_ITS | Encounter Summary ---
Author Organization [facility] Address [address] [place] [address] Care Team Providers Care Plunger Scoop Operator Name Role Phone David Walker MD Primary Care Provider [phone] Reason for Visit * Reason Onset Date Comments Breast Cancer Screening 02/25/2025 Called t o schedule mammogram. Unable to leave message. Sent [facility] message. If patient calls, please schedule mammogram or transfer call to [facility] [phone] or the [facility] where patient would like to have mammogram. Primary Care Outreach 02/25/2025 Called to schedule mammogram. Unable to leave message. Sent [facility] message. If patient calls, please schedule mammogram or transfer call to [facility] [phone] or the [facility] where patient would like to have mammogram. Encounter Details Date Type Department Care Team (Late st Contact Info) Description 02/25/2025 Patient Outreach [facility] [address] [place] [address] David Walker MD [address] [address] Breast Cancer Screening (Called to schedule mammogram. Unable to leave message. Sent [employer] [employer] message. If patient calls, please schedule mammogram or transfer call to [facility] [phone] or the [facility] where patient would like to have mammogram. ); Primary Care Outreach (Called to schedule mammogram. Unable to leave message. Sent [employer] message. If patient calls, please schedule mammogram or transfer call to [facility] [phone] or the [facility] where patient would like to have mammogram. ) Social History Tobacco Use Types Packs/Day Years [...] on file Legal Sex Female 7:55 AM ACID CORRECTION HAND Gender Identity Not on file Sexual Orientation Not on file documented as of this encounter Miscellaneous Notes * Telephone Encounter - Sandy Doe - 02/25/2025 11:27 AM CDT Reason for outreach -Teri Graham has open care gaps. Outreach has been initiated. Sent [employer] message documented in this encounter Plan of Treatment Upcoming Encounters Date Type Department Care Team (Late st Contact Info) Description 05/01/2025 1:20 PM CDT Office Visit [facility] [place] [address] [facility] [address] [place] [address] Latricia Morgan FNP [address] [facility] [place] [address] documented as of this encounter Visit Diagnoses Not on filedocumented in this encounter Additional Health Concerns Assessment Noted Time PHQ-9 Depression Total Score: 1 01/09/20 25 4:20 PM CDT documented as of this encounter Care Teams Plunger Scoop Operator Relationship Specialty Start Date End Date David Walker MD [address] [facility] [address] [place] [address] PCP - General Family Practice 01/08/20 documented as of this encounter
--- OUTSIDE RECORDS SUMMARY | 2025-03-01 22:51 | XMS_ITS | Encounter Summary ---
Author Organization [facility] Address [address] [place] [address] Care Team Providers Care Security Flex Utility Officer Name Role Phone David Walker MD Primary Care Provider [phone] Encounter Details Date Type Department Care Team (Latest Contact Info) Description 04/19/2001 Outpatient Historical [facility] Family Medicine- [facility] [address] [place] [address] Jomar Curry DO NO ADDRESS ON FILE Acute pharyngitis (Primary Dx); Obstructive chronic bronchitis with exacerbation (CMS/HCC) Social History Tobacco Use Types Packs/Day Years Used Date Smoking Tobacco: Never Assessed Comments Unknown Sex and Gender Information Value Date Recorded Sex Assigned at Not on file Legal Sex Female 5:37 AM RUBBERIZING MECHANIC Gender Identity Not on file Sexual Orientation Not on file documented as of this encounter Plan of Treatment Not on file documented as of this encounter Visit Diagnoses Diagnosis Acute pharyngitis- Primary Obstructive chronic bronchitis with exacerbation (CMS/HCC) Obstructive chronic bronchitis with exacerbation documented in this encounter Additional Health Concerns Infection Onset Date Last Indicated Resolved Time R/O COVID-19 06/04/2020 06/04/2020 06/06/2020 1:16 AM CDT COVID-19 06/04/2020 06/04/2020 07/04/2020 8:09 PM RUBBERIZING MECHANIC documented as of this encounter Care Teams Security Flex Utility Officer Relationship Specialty Start Date End Date David Walker MD [address] [phone] PCP - General Family Practice 01/08/20 documented as of this encounter
--- OUTSIDE RECORDS SUMMARY | 2025-03-01 22:51 | XMS_ITS ---
Author Organization [facility] Address [address] [place] [address] Care Team Providers Care Band Manager Name Role Phone David Walker MD Primary Care Provider [phone] [phone] Active Problems Problem Noted Date Diagnosed Date ANDRÉS (generalized anxiety disorder) 12/30/2020 Mixed hyperlipidemia 12/30/2020 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 d 01/24/2020 History of lobectomy of lung 01/08/2020 Simple chronic bronchitis 01/08/2020 Gastroesophageal reflux disease without esophagi tis 01/08/2020 Tinnitus, bilateral 03/22/2018 Bilateral sensorineural hearing loss 03/22/2018 Cerebral aneurysm 12/27/2017 History of lung cancer 06/30/2017 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 Past Treatment and Therapy Plans No past plan information found. Lifetime Dose Tracking * Chemical Lifetime Dose Automatic Entry Manual Entr y Effective Dose 6.8 mSv 6.8 mSv 0 mSv Total DLP 323 DLP 323 DLP 0 DLP CTDIvol Max 7.4 mGy 7.4 mGy 0 mGy CTDIvol Min 7.4 mGy 7.4 mGy 0 mGy
--- OUTSIDE RECORDS SUMMARY | 2025-03-01 22:51 | XMS_ITS | Encounter Summary ---
Author Organization [facility] Address [address] [place] [address] Care Team Providers Care Fbi Special Agent Name Role Phone David Walker MD Primary Care Provider +1 [phone] Encounter Details Date Type Department Care Team (Latest Contact Info) Description 03/06/2010 Ancillary Orders [facility] Cardiac Thoracic Vascular Surg [place] [address] [place] [address] Henry, Anjali A, CAMP ATTENDANT NO ADDRESS ON FILE Varicose Veins of Lower Extremities with Other Complications Social History Tobacco Use Types Packs/Day Years Used Date Smoking Tobacco: Never Assessed Comments Unknown Sex and Gender Information Value Date Recorded Sex Assigned at Not on file Legal Sex Female 5:37 AM RUBBER ENGRAVER Gender Identity Not on file Sexual Orientation Not on file documented as of this encounter Plan of Treatment Not on file documented as of this encounter Results * US VENOUS DOPPLER LEG BILATERAL (03/19/2010 1:51 PM CDT) Anatomical Region Laterality Modality Lower Extremity Ultrasound 03/19/2010 12:5 7 PM CDT Narrative 03/20/2010 8:51 AM CDT [facility] [address] [place] [address] Noninvasive Vascular Lab Lower Extremity Vein mapping for Reflux Patient: Teri Graham Study ID: US VENOUS DOPPLE Gender: F : 1950 Age: 60 Room: Height: Weight: BSA: Pt status: Outpatient Study Date: 03/19/2010 Study Time: 12:57 PM BSA: Ordering: Anjali Figueroa Interpreting:Corazon Dalton MD RIMA FACS Dietary Aid: Daxa Cervantes RVT Indications: 454.9 Varicose veins. Summary Impression: 1. No evidence of deep or superficial vein thrombosis involving the right lower extremity, left lower extremity, right common femoral vein, and left common femoral vein 2. Study suggests reflux consistent with venous insufficiency involving the right lower extremity and left lower extremity, with left leg being worse than right. Study data: Lower extremity vein mapping for reflux. Location: Vascular laboratory. Patient status: Outpatient. Study status: Routine. Procedure: A vascular evaluation was performed. Image quality was good. Venous flow and imaging: - Right common femoral - Patent; Normal phasicity; spontaneous; compressible; normal augmentation; no reflux by Valsalva - Right profunda femoral - Patent; Normal phasicity; spontaneous; compressible; normal augmentation - Right femoral - Patent; Normal phasicity; spontaneous; compressible; normal augmentation; no reflux by Valsalva - Right popliteal - Patent; Normal phasicity; spontaneous; compressible; normal augmentation; no reflux by Valsalva - Right posterior tibial - Patent; Compressible ; normal augmentation; no reflux by Valsalva - Right peroneal - Patent; Compressible - Left common femoral - Patent; Normal phasicity; spontaneous; compressible; normal augmentation; reflux greater than 4 sec by Valsalva - Left profunda femoral - Patent; Normal phasicity; spontaneous; compressible; normal augmentation - Left femoral - Patent; Normal phasicity; spontaneous; compressible; normal augmentation; reflux greater than 4 sec by Valsalva - Left popliteal - Patent; Normal phasicity; spontaneous; compressible; normal augmentation; reflux greater than 4 sec by Valsalva - Left posterior tibial - Patent; Compressible; normal augmentation; reflux greater than 4 sec by Valsalva - Left peroneal - Patent; Compressible - Patent; Vein mapping: - Proximal right greater saphenous - 3.90mm Depth: 6.90mm - Mid right greater saphenous - 1.80mm Depth: 12.00mm - Right greater saphenous, above knee- 1.80mm Depth: 10.50mm - Right greater saphenous, at knee- 2.20mm Depth: 9.30mm - Right greater saphenous, below knee- 2.60mm Depth: 7.30mm - Right lesser saphenous - 2.30mm Depth: 4.90mm - Proximal left greater saphenous - 7.20mm Depth: 8.50mm - Mid left greater saphenous - 4.80mm Depth: 12.00mm - Left greater saphenous, above knee- 4.60mm Depth: 9.00mm - Left greater saphenous, at knee- 2.00mm Depth: 11.60mm - Left greater saphenous, below knee- 3.00mm Depth: 6.90mm - Left lesser saphenous - 1.40mm Depth: 4.60mm - Left suprapatellar - Reflux greater than 4 sec - Left anterior tributary - Reflux greater than 4 sec - L posterior arch - Reflux greater than 4 sec [facility] is accredited with the Intersocietal Commission for the Accreditation of Vascular Laboratories (ICAVL) Prepared and Electronically Authenticated Corazon Dalton MD, MBA FACS Confirmed 03/20/2010 08:51 Procedure Note Corazon Dalton MD - 03/20/2010 [facility] [address] [place] [address] [place] [id number] Noninvasive Vascular Lab Lower Extremity Vein mapping for Reflux Patient: Teri Graham Study ID: US VENOUS DOPPLE Gender: F : 1950 Age: 60 Room: Height: Weight: BSA: Pt status: Outpatient Study Date: 03/19/2010 Study Time: 12:57 PM BSA: Ordering: Anjali Figueroa Interpreting:Corazon Daltno MD, MBA FACS Dietary Aid: Daxa Cervantes RVT Indications: 454.9 Varicose veins. Summary Impression: 1. No evidence of deep or superficial vein thrombosis involving theright lower extremity, left lower extremity, right common femoral vein, and left common femoral vein 2. Study suggests reflux consistent with venous insufficiency involvingthe right lower extremity and left lower extremity, with left leg being worse than right. Study data: Lower extremity vein mapping for reflux. Location: Vascular laboratory. Patient status: Outpatient. Study status: Routine. Procedure:A vascular evaluation was performed. Image quality was good. Venous flow and imaging: - Right common femoral - Patent; Normal phasicity; spontaneous; compressible; normal augmentation; no reflux by Valsalva - Right profunda femoral - Patent; Normal phasicity; spontaneous; compressible; normal augmentation - Right femoral - Patent; Normal phasicity; spontaneous; compressible; normal augmentation; no reflux by Valsalva - Right popliteal - Patent; Normal phasicity; spontaneous; compressible; normal augmentation; no reflux by Valsalva - Right posterior tibial - Patent; Compressible ; normal augmentation;no reflux by Valsalva - Right peroneal - Patent; Compressible - Left common femoral - Patent; Normal phasicity; spontaneous; compressible; normal augmentation; reflux greater than 4 sec byValsalva - Left profunda femoral - Patent; Normal phasicity; spontaneous; compressible; normal augmentation - Left femoral - Patent; Normal phasicity; spontaneous; compressible; normal augmentation; reflux greater than 4 sec by Valsalva - Left popliteal - Patent; Normal phasicity; spontaneous; compressible; normal augmentation; reflux greater than 4 sec by Valsalva - Left posterior tibial - Patent; Compressible; normal augmentation;reflux greater than 4 sec by Valsalva - Left peroneal - Patent; Compressible - Patent; Vein mapping: - Proximal right greater saphenous - 3.90mm Depth: 6.90mm - Mid right greater saphenous - 1.80mm Depth: 12.00mm - Right greater saphenous, above knee- 1.80mm Depth: 10.50mm - Right greater saphenous, at knee- 2.20mm Depth: 9.30mm - Right greater saphenous, below knee- 2.60mm Depth: 7.30mm - Right lesser saphenous - 2.30mm Depth: 4.90mm - Proximal left greater saphenous - 7.20mm Depth: 8.50mm - Mid left greater saphenous - 4.80mm Depth: 12.00mm - Left greater saphenous, above knee- 4.60mm Depth: 9.00mm - Left greater saphenous, at knee- 2.00mm Depth: 11.60mm - Left greater saphenous, below knee- 3.00mm Depth: 6.90mm - Left lesser saphenous - 1.40mm Depth: 4.60mm - Left suprapatellar - Reflux greater than 4 sec - Left anterior tributary - Reflux greater than 4 sec - L posterior arch - Reflux greater than 4 sec [facility] is accredited with the[facility] Commission for the Accreditation of Vascular Laboratories (ICAVL) Prepared and Electronically Authenticated Corazon Dalton MD RIMA FACS Confirmed 03/20/2010 08:51 us Anjali A Henry [facility] US ORDERABLES Final Result documented in this encounter Visit Diagnoses Diagnosis Varicose veins of lower extremities with other complications documented in this encounter Additional Health Concerns Infection Onset Date Last Indicated Resolved Time R/O COVID-06/04/2020 06/04/2020 06/06/2020 1:16 AM CDT COVID-19 06/04/2020 06/04/2020 07/04/2020 8:09 PM RUBBER ENGRAVER documented as of this encounter Care Teams Fbi Special Agent Relationship Specialty Start Date End Date David Walker MD [address] [facility] [address] [place] [address] PCP - General Family Practice 01/08/20 documented as of this encounter
--- OUTSIDE RECORDS SUMMARY | 2025-03-01 22:51 | XMS_ITS | Encounter Summary ---
Author Organization [facility] Address [address] [place] [address] Care Team Providers Care Skatesman Name Role Phone David Walker MD Primary Care Provider [phone] Encounter Details Date Type Department Care Team (Latest Contact Info) Description 09/24/2004 Outpatient Historical [facility] [address] [place] [address] AMBULANCE, [facility] HEADACHE (Primary Dx) Social History Tobacco Use Types Packs/Day Years Used Date Smoking Tobacco: Never Assessed Comments Unknown Sex and Gender Information Value Date Recorded Sex Assigned at Not on file 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 Gender Identity Not on file Sexual Orientation Not on file documented as of this encounter Plan of Treatment Not on file documented as of this encounter Visit Diagnoses Diagnosis Headache(784.0)- Primary Headache documented in this encounter Additional Health Concerns Infection Onset Date Last Indicated Resolved Time R/O COVID-19 06/04/2020 06/04/2020 06/06/2020 1:16 AM CDT COVID-19 06/04/2020 06/04/2020 07/04/2020 8:09 PM BUTTER PRINTER documented as of this encounter Care Teams Skatesman Relationship Specialty Start Date End Date David Walker MD [address] [facility] [address] [place] [address] PCP - General Family Practice 01/08/20 documented as of this encounter
--- OUTSIDE RECORDS SUMMARY | 2025-03-01 22:51 | XMS_ITS | Encounter Summary ---
Author Organization [facility] Address [address] [place] [address] Care Team Providers Care Drug Abuse Resistance Education Officer Name Role Phone David Walker MD Primary Care Provider [phone] [phone] Encounter Details Date Type Department Care Team (Latest Contact Info) Description 05/29/2001 Outpatient Historical [facility] Family Medicine- [facility] [address] [place] [address] Xiomara Lira MD NO ADDRESS ON FILE Acute bronchitis (Primary Dx) Social History Tobacco Use Types Packs/Day Years Used Date Smoking Tobacco: Never Assessed Comments Unknown Sex and Gender Information Value Date Recorded Sex Assigned at Not on file 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 Gender Identity Not on file Sexual Orientation Not on file documented as of this encounter Plan of Treatment Not on file documented as of this encounter Visit Diagnoses Diagnosis Acute bronchitis- Primary documented in this encounter Additional Health Concerns Infection Onset Date Last Indicated Resolved Time R/O COVID-19 06/04/2020 06/04/2020 06/06/2020 1:16 AM CDT COVID-19 06/04/2020 06/04/2020 07/04/2020 8:09 PM RAIL SIGNAL WORKER documented as of this encounter Care Teams Drug Abuse Resistance Education Officer Relationship Specialty Start Date End Date David Walker MD [address] [facility] [address] [place] [phone] PCP - General Family Practice 01/08/20 documented as of this encounter
--- OUTSIDE RECORDS SUMMARY | 2025-03-01 22:51 | XMS_ITS | Encounter Summary ---
Author Organization [facility] Address [address] [place] [address] Care Team Providers Care Fiber Optics Supervisor Name Role Phone David Walker MD Primary Care Provider +1 [phone] Encounter Details Date Type Department Care Team (Late st Contact Info) Description 01/25/2007 Emergency [facility] Emergency Department [address] 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 Gender Identity Not on file Sexual Orientation Not on file documented as of this encounter Plan of Treatment Not on file documented as of this encounter Procedures Procedure Name Priority Date/Time Associated Diagnosis Comments CARDIAC ENZYMES Routine 01/25/2007 11:14 AM CDT CBC WITH DIFFERENTIAL Routine 01/25/2007 11:14 AM CDT PTT Routine 01/25/2007 11:14 AM CDT PROTIME-INR Routine 01/25/2007 11:14 AM CDT BASIC METABOLIC PANEL Routine 01/25/2007 11:14 AM CDT documented in this encounter Results * (ABNORMAL) CBC WITH DIFFERENTIAL (01/25/2007 11:14 AM CDT) WBC 8.3 4.8 - 10.8 K/ul INTERFACE SYSTEM RBC 4.40 4.20 - 5.40 Mil/ul INTERFACE SYSTEM HEMOGLOBIN 14.8 12.0 - 16.0 g/dL INTERFACE SYSTEM HEMATOCRIT 41.7 36.0 - 46.0 % INTERFACE SYSTEM MCV 94.8 84.0 - 103.0 Fl INTERFACE SYSTEM MCH 33.6 27.0 - 34.0 pg INTERFACE SYSTEM MCHC 35.5(H) 30.0 - 35.0 g/dL INTERFACE SYSTEM RDW 12.6 11.0 - 14.5 % INTERFACE SYSTEM PLATELETS 329 140 - 440 K/ul INTERFACE SYSTEM MPV 9.0 8.9 - 12.8 Fl INTERFACE SYSTEM NEUTROPHILS 73.1 42.2 - 75.2 % INTERFACE SYSTEM LYMPHOCYTES 18.6(L) 24.0 - 44.0 % INTERFACE SYSTEM MONOCYTES 7.6 2.0 - 10.0 % INTERFACE SYSTEM EOSINOPHILS 0.2 0.0 - 7.0 % INTERFACE SYSTEM BASOPHILS 0.5 0.0 - 1.0 % INTERFACE SYSTEM NEUTROPHIL ABSOLUTE 6.1 2.0 - 8.0 K/ul INTERFACE SYSTEM LYMPHOCYTE ABSOLUTE 1.5 1.2 - 4.0 K/ul INTERFACE SYSTEM MONOCYTE ABSOLUTE 0.6 0.1 - 0.6 K/ul INTERFACE SYSTEM EOSINOPHIL ABSOLUTE 0.0 0.0 - 0.7 K/ul INTERFACE SYSTEM BASOPHILS ABSOLUTE 0.0 0.0 - 0.2 K/ul INTERFACE SYSTEM 01/25/2007 11:1 4 AM CDT us Alexa Ly MD HEMATOLOGY ORDERABLES Edited INTERFACE SYSTEM Refer to clinic/hospital department * PTT (01/25/2007 11:14 AM CDT) PTT 25.4 21.6 - 35.6 Secs INTERFACE SYSTEM Comment: Therapeutic Range: Hi-level PE/DVT heparin protocol 80.1 -95.0 sec Lo-level PE/DVT heparin protocol 67.1 - 80.0 sec Cardiac Heparin Protocol 67.1 - 85.0 sec Neuro Heparin Protocol 67.1 - 80.0 sec As of 07/28/2006 note change in APTT Normal Range. 01/25/2007 11:1 4 AM CDT us Alexa Ly MD HEMATOLOGY ORDERABLES Edited Performing Organization Address [facility] Phone Number INTERFACE SYSTEM Refer to clinic/hospital department * PROTIME-INR (01/25/2007 11:14 AM CDT) PROTIME 13.5 13.0 - 15.7 Secs INTERFACE SYSTEM Comment: As of 06 note change in normal range. INR 0.9 INTERFACE SYSTEM Comment: Expected Values for INR: DVT/PE Goal INR 2.5; range 2.0 - 3.0 Valve Replacement Tissue Goal INR 2.5; range 2.0 - 3.0 Mechanical Goal INR 3.0; range 2.5 - 3.5 POST-OR Goal INR 2.5; range 2.0 - 3.0 or Goal 3.0; range 2.5 - 3.5 Atrial Fibrillation Goal INR 2.5; range 2.0 - 3.0 Ischemic Stroke Goal INR 2.5; range 2.0 - 3.0 For additional information see Guidelines for Anticoagulation available from the pharmacy Keturah Blanc Pharm D. 01/25/2007 11:1 4 AM CDT us Alexa Ly MD HEMATOLOGY ORDERABLES Edited Performing Organization Address [facility] Phone Number INTERFACE SYSTEM Refer to clinic/hospital department * (ABNORMAL) BASIC METABOLIC PANEL (01/25/2007 11:14 AM CDT) GLUCOSE 110 70 - 110 mg/dL INTERFACE SYSTEM BUN 8 7 - 17 mg/dL INTERFACE SYSTEM CREATININE 0.8 0.7 - 1.2 mg/dL INTERFACE SYSTEM SODIUM 135(L) 136 - 145 mEq/L INTERFACE SYSTEM POTASSIUM 4.2 3.5 - 5.0 mEq/L INTERFACE SYSTEM CHLORIDE 103 95 - 110 mEq/L INTERFACE SYSTEM CO2 28 22 - 32 mmol/l INTERFACE SYSTEM CALCIUM 10.1 8.4 - 10.5 mg/dL INTERFACE SYSTEM ANION GAP 8(L) 9 - 20 mEq/L INTERFACE SYSTEM OSMOLALITY, CALCULATED 278 275 - 295 mOsm/Kg INTERFACE SYSTEM 01/25/2007 11:1 4 AM CDT us Alexa Ly MD CHEMISTRY ORDERABLES Edited INTERFACE SYSTEM Refer to clinic/hospital department * CARDIAC ENZYMES (01/25/2007 11:14 AM CDT) TROPONIN I <0.1 0.0 - 1.3 ng/mL INTERFACE SYSTEM Comment: As of 06 the Troponin Reference Range has changed from 0.0-1.5 ng/ml to 0.0- 1.3 ng/ml due to a change in testing methodology. CKMB 0.4 0.0 - 5.0 ng/mL INTERFACE SYSTEM 01/25/2007 11:1 4 AM CDT us Alexa Ly MD CHEMISTRY ORDERABLES Edited Performing Organization Address City/[facility] Co de Phone Number INTERFACE SYSTEM Refer to clinic/hospital department documented in this encounter Visit Diagnoses Diagnosis Chest pain, unspecified- Primary documented in this encounter Additional Health Concerns Infection Onset Date Last Indicated Resolved Time R/O COVID-19 06/04/2020 06/04/2020 06/06/2020 1:1 6 AM CDT COVID-19 06/04/2020 06/04/2020 07/04/2020 8:09 PM SECURITY ENGINEER documented as of this encounter Care Teams Fiber Optics Supervisor Relationship Specialty Start Date End Date David Walker MD [address] [phone] PCP - General Family Practice 01/08/20 documented as of this encounter
--- OUTSIDE RECORDS SUMMARY | 2025-03-01 22:51 | XMS_ITS | Encounter Summary ---
Author Organization [facility] Address [address] [place] [address] Care Team Providers Care Marketing Regional Consultant Name Role Phone David Walker MD Primary Care Provider [phone] [phone] Reason for Visit * Reason Comments Provider Call Encounter Details Date Type Department Care Team (Late st Contact Info) Description 02/18/2025 Telephone [facility] Family Medicine [address] [address] David Walker MD [address] [address] Provider Call Social History Tobacco Use Types Packs/Day Years [...] on file Legal Sex Female 7:55 AM CIVIL CLERK Gender Identity Not on file Sexual Orientation Not on file documented as of this encounter Miscellaneous Notes * Telephone Encounter - Rosemarie Parker - 02/19/2025 3:35 PM CDT 02/19/2025 3:35 PM Will be watching for fax. Rosemarie Parker, 02/19/2025 3:35 PM * Telephone Encounter - Eloisa Zhang - 02/18/2025 11:46 AM CDT Copied from [facility] #[id number]. Topic: [id number] Call >> Feb 18, 2025 11:45 AM Eloisa Pepper wrote: Caller is requesting to speak with Clinical Care Team. Caller Name: Ty Callback Number: [phone] Clinician Type: Other healthcare professional not listed above Call Notes: Seeking last visit notes, will be faxing request. Is this addressing an immediate patient care need? No documented in this encounter Plan of Treatment Upcoming Encounters Date Type Department Care Team (Late st Contact Info) Description 05/01/2025 1:20 PM CDT Office Visit [place] [phone] [facility] [place] [place] [phone] Latricia Morgan FNP [address] [facility] [place] [address] documented as of this encounter Visit Diagnoses Not on filedocumented in this encounter Additional Health Concerns Assessment Noted Time PHQ-9 Depression Total Score: 1 01/09/20 25 4:20 PM CDT documented as of this encounter Care Teams Marketing Regional Consultant Relationship Specialty Start Date End Date David Walker MD [address] [phone] PCP - General Family Practice 01/08/20 documented as of this encounter
--- OUTSIDE RECORDS SUMMARY | 2025-03-01 22:51 | XMS_ITS | Encounter Summary ---
Author Organization [facility] Address [address] [place] [address] Care Team Providers Care Starting Gate Driver Name Role Phone David Walker MD Primary Care Provider +1 [phone] Encounter Details Date Type Department Care Team (Latest Contact Info) Description 12/02/2003 Outpatient Historical [facility] [address] [place] [address] Jomar Curry DO NO ADDRESS ON FILE ACUTE BRONCHITIS (Primary Dx) Social History Tobacco Use Types Packs/Day Years Used Date Smoking Tobacco: Never Assessed Comments Unknown Sex and Gender Information Value Date Recorded Sex Assigned at Not on file 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 Gender Identity Not on file Sexual Orientation Not on file documented as of this encounter Plan of Treatment Not on file documented as of this encounter Visit Diagnoses Diagnosis Acute bronchitis- Primary documented in this encounter Additional Health Concerns Infection Onset Date Last Indicated Resolved Time R/O COVID-19 06/04/2020 06/04/2020 06/06/2020 1:16 AM CDT COVID-19 06/04/2020 06/04/2020 07/04/2020 8:09 PM INSIDE METER TESTER documented as of this encounter Care Teams Starting Gate Driver Relationship Specialty Start Date End Date David Walker MD [address] [facility] [address] [place] [address] PCP - General Family Practice 01/08/20 documented as of this encounter
--- OUTSIDE RECORDS SUMMARY | 2025-03-01 22:51 | XMS_ITS | Encounter Summary ---
Author Organization [facility] Address [address] [place] [address] Care Team Providers Care Inspector Fuel Hose Name Role Phone David Walker MD Primary Care Provider [phone] [phone] Reason for Visit * Reason Onset Date Comments Appointment Verification 2025 Encounter Details Date Type Department Care Team (Late st Contact Info) Description 2025 Telephone [facility] Vascular Surgery [place] [address] [place] [address] Gonzalo Munson NP [address] [place] [address] Appointment Verification Social History Tobacco Use Types Packs/Day Years [...] on file Legal Sex Female 7:55 AM RISK MANAGEMENT SPECIALIST Gender Identity Not on file Sexual Orientation Not on file documented as of this encounter Miscellaneous Notes * Telephone Encounter - Linda Jaramillo - 2025 10:45 AM CDT Unable to verify US and OVE appt for 03/01/2025.Phone is busy x 3. Sent My [employer] Fundg. documented in this encounter Plan of Treatment Upcoming Encounters Date Type Department Care Team (Late st Contact Info) Description 05/01/2025 1:20 PM CDT Office Visit [facility] Family Medicine [place] [address] [facility] [address] [place] [address], [place] [address] Latricia Morgan FNP [address] [place] [address] documented as of this encounter Visit Diagnoses Not on filedocumented in this encounter Additional Health Concerns Assessment Noted Time PHQ-9 Depression Total Score: 1 01/09/20 25 4:20 PM CDT documented as of this encounter Care Teams Inspector Fuel Hose Relationship Specialty Start Date End Date David Walker MD [address] [facility] [address] [place] [address] PCP - General Family Practice 01/08/20 documented as of this encounter
--- OUTSIDE RECORDS SUMMARY | 2025-03-01 22:51 | XMS_ITS | Encounter Summary ---
Author Organization [facility] Address [address] [place] [address] Care Team Providers Care Enamel Machine Operator Name Role Phone David Walker MD Primary Care Provider [phone] Encounter Details Date Type Department Care Team (Late st Contact Info) Description 09/25/2004 Outpatient Historical [facility] Ambrosio Donovan MD NO ADDRESS ON FILE Social History Tobacco Use Types Packs/Day Years Used Date Smoking Tobacco: Never Assessed Comments Unknown Sex and Gender Information Value Date Recorded Sex Assigned at Not on file Legal Sex Female 5:37 AM MANAGER ENDOSCOPY Gender Identity Not on file Sexual Orientation Not on file documented as of this encounter Plan of Treatment Not on file documented as of this encounter Visit Diagnoses Not on filedocumented in this encounter Additional Health Concerns Infection Onset Date Last Indicated Resolved Time R/O COVID-19 06/04/2020 06/04/2020 06/06/2020 1:16 AM CDT COVID-19 06/04/2020 06/04/2020 07/04/2020 8:09 PM MANAGER ENDOSCOPY documented as of this encounter Care Teams Enamel Machine Operator Relationship Specialty Start Date End Date David Walker MD [address] [address] PCP - General Family Practice 01/08/20 documented as of this encounter
--- OUTSIDE RECORDS SUMMARY | 2025-03-01 22:51 | XMS_ITS | Encounter Summary ---
Author Organization [facility] Address [address] [place] [address] Care Team Providers Care Auto Parts Salesperson Name Role Phone David Walker MD Primary Care Provider [phone] Encounter Details Date Type Department Care Team (Latest Contact Info) Description 06/05/2001 Outpatient Historical [facility] Family Medicine- [facility] [address] [place] [address] Xiomara Lira MD NO ADDRESS ON FILE Acute bronchitis (Primary Dx); Adjustment disorder with depressed mood Social History Tobacco Use Types Packs/Day Years Used Date Smoking Tobacco: Never Assessed Comments Unknown Sex and Gender Information Value Date Recorded Sex Assigned at Not on file Legal Sex Female 5:37 AM PROGRAM SPECIALIST Gender Identity Not on file Sexual Orientation Not on file documented as of this encounter Plan of Treatment Not on file documented as of this encounter Visit Diagnoses Diagnosis Acute bronchitis- Primary Adjustment disorder with depressed mood documented in this encounter Additional Health Concerns Infection Onset Date Last Indicated Resolved Time R/O COVID-19 06/04/2020 06/04/2020 06/06/2020 1:16 AM CDT COVID-19 06/04/2020 06/04/2020 07/04/2020 8:09 PM PROGRAM SPECIALIST documented as of this encounter Care Teams Auto Parts Salesperson Relationship Specialty Start Date End Date David Walker MD [address] [facility] [address] [place] [phone] PCP - General Family Practice 01/08/20 documented as of this encounter
--- OUTSIDE RECORDS SUMMARY | 2025-03-01 22:51 | XMS_ITS ---
Author Organization [facility] Address [address] [place] [address] Care Team Providers Care Molding Manager Name Role Phone David Walker MD Primary Care Provider [phone] Active Problems Problem Noted Date Diagnosed Date [...] Automatic Entry Manual Entr y Effective Dose 20.4 mSv 13.6 mSv 6.8 mSv Total DLP 5,335.2 DLP 5,012.2 DLP 323 DLP CTDIvol Max 354.3 mGy 346.9 mGy 7.4 mGy CTDIvol Min 321.6 mGy 314.2 mGy 7.4 mGy Resolved Problems Problem Noted Date Diagnosed Date Resolved Date Gastroenteritis 01/11/2025 01/11/2025 Focal neurological deficit 11/25/2021 0 12/01/2021 Influenza with pneumonia 11/15/202109/2021 Viral pneumonia 11/14/2021 12/21/2021
--- OUTSIDE RECORDS SUMMARY | 2025-03-01 22:51 | XMS_ITS | Clinical Summary ---
Author Organization [facility] Address [address] [place] [address] Care Team Providers Care Completions Manager Name Role Phone David Walker MD Primary Care Provider [phone] Allergies Active Allergy Reactions Criticality Noted Date Comments Iodinated Contrast Media Rash Low 03/01/2018 Medications fluticasone propionate (FLONASE) 50 mcg/spray [place], Suspension nasal inhalerIndicatio ns:Sinusitis, unspecified chronicity, unspecified location Administer 2 Sprays in each nostril daily. 16 Gram 1 1 Active levothyroxine 75 mcg tabletIndication s: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d Take 1 Tablet (75 mcg) by mouth daily in the morning. 90 Tablet 4 1 Active omeprazole (PriLOSEC) 20 mg Capsule, Delayed Release(E.C.)Ind ications:Gastroe sophageal reflux disease without esophagitis Take 1 Capsule (20 mg) by mouth daily. 30 Capsule 5 1 Active sertraline (Zoloft) 50 mg tabletIndication s:ANDRÉS (generalized anxiety disorder) Take 1 Tablet (50 mg) by mouth daily. 30 Tablet 5 1 Active Active Problems Problem Noted Date Diagnosed Date [...] other complications 03/19/2010 Unspecified venous (peripheral) insufficiency Immunizations Immunization Administration Dates Next Due (TDVAX)(7 YRS UP) TETANUS AN D DIPHTHERIA TOXOIDS, ADSORBED (2 LF OF TETANUS TOXOID AND 2 LF OF DIPHTHERIA TOXOID), 0.5ML (PF), IM 12/08/2006 INFLUENZA VACCINE HIGH DOSE QUADRIVALENT 65 YR UP PF IM 06/30/2020 INFLUENZA VACCINE QUADRIVALE NT 6 MOS UP CELL DERIVED PF IM 06/20/2018 Influenza Vaccine Tri Split 4+ Pf Im [...] Years Used Date Smoking Tobacco: Former Cigarettes 2 35 Smokeless Tobacco: Never Tobacco Cessation:Counseling Given: No Alcohol Use Standard Drinks/Week Comments No 0 (1 standard drink = 0.6 oz pur e alcohol) Social Connections Answer Date Recorded In a typical week, how many times do you talk on the phone with family, friends, or neighbors? More than three times a week 03/26/2020 How often do you get togethe r with friends or relatives? Twice a week 03/26/2020 How often do you attend chur ch or church services? Never 03/26/2020 Do you belong to any clubs o r organizations such as alevism groups, unions, fraternal or athletic groups, or school groups? No 03/26/2020 How often do you attend meet ings of the clubs or organizations you belong to? Never 03/26/2020 Are you , , di vorced, , never , or living with a partner? 03/26/2020 Financial Resource Strain Answer Date R ecorded How hard is it for you to pa y for the very basics like food, housing, medical care, and heating? Not very hard 03/26/2020 Food Insecurity Answer Date Recorded Within the past 12 months, y ou worried that your food would run out before you got the money to buy more. Never true 03/26/20 20 Within the past 12 months, t he food you bought just didn't last and you didn't have money to get more. Never true 03/26/2020 Transportation Needs Answer Date Record ed In the past 12 months, has l ack of transportation kept you from medical appointments or from getting medications? No 12/2019 In the past 12 months, has l ack of transportation kept you from meetings, work, or from getting things needed for daily living? No 03/26/2020 Education Answer Date Recorded What is the highest level of school you have completed or the highest degree you have received? 10th grade 03/26/2020 Comments No Sex and Gender Information Value Date Recorded Sex Assigned at Not on file Legal Sex Female 5:37 AM ROLLER HELPER Gender Identity Not on file Sexual Orientation Not on file Last Filed Vital Signs Vital Sign Reading Time Taken Comments Blood Pressure 130/82 12/30/2020 1:31 PM CDT Pulse 94 12/30/2020 1:31 PM CDT Temperature 36.7 C (98.1 F) 12/30/2020 1:31 PM CDT Respiratory Rate 16 12/30/2020 1:31 PM CDT Oxygen Saturation 98% 12/30/2020 1:31 PM CDT Inhaled Oxygen Concentration - - Weight 59 kg (130 lb) 12/30/2020 1:31 PM CDT Height 157.5 cm (5' 2 ) 12/30/2020 1:31 PM CDT Body Mass Index 23.78 12/30/2020 1:31 PM CDT Plan of Treatment Health Maintenance Due Date Last Done Comments PNEUMOCOCCAL VACCINE 50+ YEA RS (1 of 2 - PCV) 02/26/1971 FIT-DNA Q 3 years 02/26/1997 FIT/FOBT Q 1 year 02/26/1997 Flex Sig/CT Colonography Q 5 years 02/26/1997 ZOSTER VACCINE (1 of 2) 02/26/2002 RSV VACCINE (60+ or ) (1 - Risk 60-74 years 1-dose series) 2012 OSTEOPOROSIS SCREENING 02/26/2017 Traditional Medicare (ACO) A nnual Wellness Visit 03/27/2021 03/26/2020 COLORECTAL SCREENING 08/28/2022 08/28/2019, 08/28/2019, 09/14/2013 Colorectal Cancer Screening 08/28/2022 BREAST CANCER SCREENING 04/15/2023 04/15/20 22, 04/14/2020, 04/14/2020, Additional history exists DTAP/TDAP/TD VACCINES (2 - T d or Tdap) 12/05/2023 12/04/2013, 12/08/2006 COVID-19 Vaccine (2 - 2023-2 5 season) 2024 10/03/2020 INFLUENZA VACCINE (#1) 2025 , 06/04/2020, 06/04/2020, Additional history exists Procedures Procedure Name Priority Date/Time Associated Diagnosis Comments ENDOSCOPY, COLON, SCREENING Routine 08/28/2019 from Last 3 Months or Most Recently Relevant to Health Maintenance Results * ENDOSCOPY, COLON, SCREENING (08/28/2019) us Abstract Spg Provider GI PROCEDURE ORDERABLES Fi nal Result from Last 3 Months or Most Recently Relevant to Health Maintenance Insurance MEDICARE PART A AND B [facility] Care Teams Completions Manager Relationship Specialty Start Date End Date David Walker MD [address] [phone] PCP - General Family Practice 01/08/20
[2025-03-01 22:56] LABS: Hematocrit 25.0 % (36-47); Hemoglobin 7.90 g/dL (11.27-16.99); Mean Corpuscular HGB Conc 31.6 g/dL (30-55); Mean Corpuscular Hemoglobin 25.4 pg (27-33); Mean Corpuscular Volume 80.4 fl (85-98); Nucleated Red Blood Cells % 0 %; Platelet Count 325 10^3/cmm (157-399); Red Blood Count 3.11 10^6/uL (3.85-5.65); White Blood Count 15.24 10^3/uL (3.29-11.43)
[2025-03-01 23:00] LABS: ABG PCO2 41.3 mmHg (35-45); ABG PH Result 7.43 (7.35-7.45); Arterial Blood Gas Hematocrit 25.7 % (37-47); Blood Gas LPM 6.0 %; Blood Gas Sample Site Brachial, right; Blood Gas Sample Type Arterial; Carboxyhemoglobin 1.3 %THgb (0.4-20.1); HCO3 ABG 27.4 mmol/L (22-26); Methemoglobin 1.5 % (0.4-1.5); PO2 ABG 56.3 mmHg (80.0-100.0)
--- NOTE | 2025-03-01 23:02 | ED_ITS ---
HPI - SOB/Dyspnea 2 General: Chief Complaint: Shortness of Breath/Dyspnea Stated Complaint: Shortness of breath Time Seen by Provider: 03/01/25 22:40 History of Present Illness: HPI Narrative: 75-year-old female patient presenting wi th shortness of breath, cough productive of brown sputum. She tells me she does not use oxygen at home. She evidently does have a history of COPD. She says she was treated for pneumonia 3 or 4 weeks ago with antibiotics. She is feeling generally weak. EMS found her pulse ox to be in the 70s on their arrival. She was given nebulizer treatments and oxygen prior to her arrival, and is feeling somewhat improved. She denies leg swelling. She denies significant chest pain. She denies vomiting. Related Data Home Medications ?Medication ?Instructions ?Recorded ?Confirmed No Known Home Medications 08/28/1903/10 Allergies Allergy/AdvReac Type Severity Reaction Status Date / Time Iodinated Contrast Media Allergy Unknown Verified 08/27/19 08:02 [facility] 2 PFSH: Medical History H/O adenomatous polyp of colon 2016: colon polyps , recommended 3 year follow up COPD exacerbation Anxiety Malignant neoplasm of unspecified part of unspecified bronchus or lung Herpes zoster without complication Cancer, epiglottis Cervical cancer Vitamin D deficiency Claustrophobia Feeding by G-tube Encounter for colonoscopy due to history of colonic polyp Surgical History H/O colonoscopy 08/2019: normal , f/u 10 years History of tubal ligation History of neck surgery Status post lung surgery History of laparoscopic cholecystectomy Family History (Updated 08/27/19 @ 07:56 by Natalya Ferrell RN) Other Tuberculosis Social History Smoking and tobacco/nicotine status: former use of tobacco/nicotine Quit status (tobacco/nicotine): has quit using Second hand smoke exposure: No Alcohol intake: current Alcohol intake frequency: few times a week Substance/Drug Use: never Lives independently: Yes Household members: none Physical Exam 2 Const: GENERAL APPEARANCE: cooperative and ill appearing HENMT: COMMON NORMALS: normocephalic, atraumatic and Normal external nose present HEAD & SCALP: normocephalic and atraumatic FACE & SINUS: normal facial exam and face symmetric NOSE: Normal external nose present Eye: COMMON NORMALS: Equal, round and reactive pupils present and EOMs intact bilaterally PUPIL: Yes Equal, round and reactive pupils present Neck/C-Spine: GENERAL: Yes trachea midline Chest: CHEST: Yes Symmetrical chest wall rise Resp: EFFORT & INSPECTION: Yes tachypneic AUSCULTATION: rhonchi and wheezes Cardio: COMMON NORMALS: regular rhythm RATE: tachycardic RHYTHM: regular rhythm GI: COMMON NORMALS: Normal to inspection, nondistended, normoactive bowel sounds present Extremity: COMMON NORMALS: no pedal edema Neuro: VALERIA COMA SCALE: document GCS findings [place] coma scale eye opening: Spontaneous Valeria coma scale verbal response: Orientated Valeria coma scale motor response: Obey commands [place] coma scale total score: 15 S ENSORY EXAM: Yes extremities (intact) Psych: COMMON NORMALS: speech normal SPEECH: Yes normal speech Skin: COMMON NORMALS: no rashes or lesions noted GENERAL SKIN EXAM: no rashes or lesions noted Course 2 Vital Signs: Vital signs: Vital Signs Temperature 98 F 03/01/25 22:51 Pulse Rate 102 H 03/01/25 23:19 Respiratory Rate 17 03/01/25 23:19 Blood Pressure 76/43 03/01/25 23:19 Pulse Oximetry 94 03/01/25 23:19 Oxygen Delivery Me thod Nasal Cannula 03/01/25 22:51 Oxygen Flow Rate 5 03/01/25 22:51 Fraction of Inspir ed Oxygen 55 03/01/25 23:13 MDM - SOB/Dyspnea Medical Decision Making Initial pulse ox was 89-92 on 6 L nasal cannula. She is tachycardic. Blood pressure is soft. She has a leukocytosis of 15. Hemoglobin is 8. No prior labs to compare. Her potassium is 3.2, and is repleted. First troponin is 18. No acute ST wave changes on EKG. BNP is 556. Blood gas shows a pH of 7.43, PO2 of 56 despite the 6 L. She is placed on BiPAP. She is given a sepsis bolus, vancomycin and Zosyn. She will go to the ICU. Hospitalist is aware. Lab Data 03/01/25 22:51 03/01/25 22:51 Labs/Radiology: Radiology Impressions Chest X-Ray 03/01/25 22:47 IMPRESSION: Dense infiltrate left lung base. Laboratory Results WBC 15.24 10^3/uL (3.29-11.43) H 03/01/25 22:51 RBC 3.11 10^6/uL (3.85-5.65) L 03/01/25 22:51 Hgb 7.90 g/dL (11.27-16.99) L 03/01/25 22:51 Hct 25.0 % (36-47) L 03/01/25 22:51 MCV 80.4 fl (85-98) L 03/01/25 22:51 MCH 25.4 pg (27-33) L 03/01/25 22:51 MCHC 31.6 g/dL (30-55) 03/01/25 22: RDW 16.3 % (12.1-15.1) H 03/01/25 22:51 Plt Count 325 10^3/cmm (157-399) 03/01/25 22:51 MPV 9.0 fL (7.4-10.4) 03/01/25 22:51 Neut % (Auto) 88.4 % 03/01/25 22:51 Lymph % (Auto) 3.3 % 03/01/25 22:51 [place] % (Auto) 7.5 % 03/01/25 22:51 Eos % (Auto) 0.0 % 03/01/25 22:51 Baso % (Auto) 0.4 % 03/01/25:51 Neut # (Auto) 13.47 10^3/uL (1.8-7.7) H 03/01/25 22:51 Lymph # (Auto) 0.5 10^3/uL (0.8-4.8) L 03/01/25 22:51 [place] # (Auto) 1.2 10^3/uL (0.2-0.9) H 03/01/25 22:51 Eos # (Auto) 0.0 10^3/uL (0.0-0.8) 03/01/25 22:51 Baso # (Auto) 0.1 10^3/uL (0.0-0.1) 03/01/25 22:51 Nucleated RBC % (auto) 0 % 03/01/25 22:51 Nucleated RBCs # 0.0 /100WBC 03/01/25 22:51 Specimen Type Arterial 03/01/25 22:48 Sample Site Brachial, right 03/01/25 22:48 ABG pH 7.43 (7.35-7.45) 03/01/25 22:48 ABG pCO2 41.3 mmHg (35-45) 03/01/25 22:48 ABG pO2 56.3 mmHg (80.0-100.0) L 03/01/25 22:48 ABG HCO3 27.4 mmol/L (22-26) H 03/01/25 22:48 ABG Base Excess 2.8 mmol/L (-2.0-2.0) H 03/01/25 22:48 Tyree Test N/a 03/01/25 22:48 Hematocrit 25.7 % (37-47) L 03/01/25 22:48 Hgb O2 Saturation 85.7 % (95-100) L 03/01/25 22:48 Carboxyhemoglobin 1.3 %THgb (0.4-20.1) 03/01/25 22:48 Methemoglobin 1.5 % (0.4-1.5) 03/01/25 22:48 Total Hemoglobin 8.4 g/dL (12-16) L 03/01/25 22:48 O2 Delivery Device Nc 03/01/25 22:48 O2 Liters/Min 6.0 % 03/01/25 22:48 Counter Stitcher ID [email or web address] 03/01/25 22:48 Sodium 133 mmol/L (136-145) L 03/01/25 22:51 Potassium 3.2 mmol/L (3.5-5.1) L 03/01/25 22:51 Chloride 92 mmol/L (98-107) L 03/01/25 22:51 Carbon Dioxide 26 mmol/L (22-29) 03/01/25 22:51 Anion Gap 18.2 (5-19) 03/01/25 22:51 BUN 15 mg/dL (8-23) 03/01/25 22:51 Creatinine 0.7 mg/dL (0.5-0.9) 03/01/25 22:51 GFR Calculation Not Reportable 03/01/25 22:51 Glucose 108 mg/dL (65-115) 03/01/25 22:51 Calculated Osmolality 277 mOsm/kg (285-295) L 03/01/25 22:51 Lactic Acid 1.8 mmol/L (0.5-2.2) 03/01/25 22:51 Calcium 8.3 mg/dL (8.5-10.5) L 03/01/25 22:51 Total Bilirubin 0.5 mg/dL (0.15-1.2) 03/01/25 22:51 AST 39 U/L (0-32) H 03/01/25 22:51 ALT 21 U/L (0-33) 03/01/25 22:51 Alkaline Phosphatase 100 U/L (35-105) 03/01/25 22:51 Troponin T Baseline 18 ng/L (0-10) H 03/01/25 22:51 NT-Pro-B Natriuret Pep 556 pg/mL (0-125) H 03/01/25 22:51 Total Protein 5.5 g/dL (6.6-8.7) L 03/01/25 22:51 Albumin 3.6 g/dL (3.5-5.2) 03/01/25 22:51 Globulin 1.9 g/dL (1.3-4.6) 03/01/25 22:51 Influenza A (PCR) Negative (Negative) 03/01/25 23:26 Influenza Type B (PCR) Negative (Negative) 03/01/25 23:26 RSV (PCR) Negative (Negative) 03/01/25 23:26 SARS-CoV-2 (PCR) Negative (Negative) 03/01/25 23:26 All radiology interpretation(s) finalized by discharge Critical Care Time 2 Critical Care Time: Critical Care Time: Yes Total Critical Care Time: 35 Attestation: This case had a high probability of a clinically significant, sudden, or life threatening deterioration of this patient's condition which required my full and direct attention, intervention and personal management. Time is independent of any procedures performed. Discharge Plan Discharge Patient Disposition: Admitted As Inpatient Clinical Impression: Pneumonia, Acute hypoxic respiratory failure, Sepsis Condition: Serious Coding Level of Care Code ED Associate Accountant for Krystle Avendano
[2025-03-01 23:13] VITALS: PULSE 107; RESP 19; O2SAT 93
[2025-03-01 23:19] VITALS: BP 76/43; PULSE 102; RESP 17; O2SAT 94
[2025-03-01 23:19] LABS: Lactic Sepsis W/Reflex 1.8 mmol/L (0.5-2.2)
[2025-03-01 23:22] LABS: Troponin(5th) Baseline 18 ng/L (0-10)
[2025-03-01 23:29] LABS: Alanine Aminotransferase 21 U/L (0-33); Albumin Level 3.6 g/dL (3.5-5.2); Alkaline Phosphatase 100 U/L (35-105); Anion Gap 18.2 (5-19); Aspartate Amino Transferase 39 U/L (0-32); Blood Urea Nitrogen 15 mg/dL (8-23); Calcium 8.3 mg/dL (8.5-10.5); Carbon Dioxide 26 mmol/L (22-29); Chloride 92 mmol/L (98-107); Creatinine Clr Calc Pharmacy 53.0414; Globulin 1.9 g/dL (1.3-4.6); Glucose 108 mg/dL (65-115); NT Pro B Type Natriuretic Pept 556 pg/mL (0-125); Osmolality Calculated 277 mOsm/kg (285-295); Potassium 3.2 mmol/L (3.5-5.1); Sodium 133 mmol/L (136-145); Total Protein 5.5 g/dL (6.6-8.7)
[2025-03-01] MEDS: piperacillin-tazobactam 4.5 GM in sodium chloride 0.9% (plus) 50 ML IV (23:51)
[2025-03-02] VITALS (80 sets, daily range): BP systolic 85–177; BP diastolic 51–125; PULSE 85–107; RESP 10–27; TEMP 36.7–37.9; O2SAT 87–100
[2025-03-02 00:05] LABS: Respiratory Syncytial Virus Ce NEGATIVE (Negative); SARS-CoV-2 PCR NEGATIVE (Negative)
--- NOTE | 2025-03-02 00:20 | XRR_ITS ---
PROCEDURE INFORMATION: Exam: XR Left Wrist Exam date and time: 03/02/2025 12:25 AM Age: 75 years old Clinical indication: Injury or trauma; Fall; Blunt trauma (contusions or hematomas); Wrist; Left; Additional info: Fall left wrist pain TECHNIQUE: Imaging protocol: Radiologic exam of the left wrist. Views: 3 or more views. COMPARISON: No relevant prior studies available. FINDINGS: Bones/joints: Osteopenic. Soft tissues: Normal. XR/XR wrist LT min 3V* [id number] IMPRESSION: No acute findings.
--- NOTE | 2025-03-02 00:42 | P.HP_ITS ---
Providers/Chief Complaint 2 Admitting Physician: Rosalie Fischer MD Primary Care Provider: AMISH Leigh Chief Complaint: Shortness of breath History of Present Illness Teri Graham is a 75 year old female with a past medical history of COPD, lung cancer, she reports a history of partial lobectomy in 2016 following which she has been on surveillance CTs. Most recent CT was performed at [facility] in September 2024 and reportedly patient was noted to have some development of nodules which are being watched closely. Apparently they are not large enough to biopsy. 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 Patient is brought to the emergency room today after having had a syncopal episode at home. Her family states that she was in her usual state of health and was at [place] earlier this morning for a routine ultrasound of the neck appears this was a Return to play per her description. She returned at around 3:30 PM when her family left her and shortly afterwards she had a syncopal episode at home. Patient reports she has had intermittent syncopal's episode over the past year including the one in August at which time she was thought to have had a stroke. There was an MRI performed at that time but results are not available at this time for review. She is on aspirin Plavix for this reason. She had an EEG at the time which did not show any seizure activity. At the time when EMS picked up the patient, she was noted to be saturating in the 70s. She has a new oxygen requirement of 6 L/min today. She denies any history of aspiration, however in the room she is trying to swallow 2 tablets of Tylenol and is noted to have difficulty in clearing the tablets. She has not had a swallow study recently. She has a chronic cough, not worsened recently. No expectoration. No fever. She denies any chest pain dyspnea or palpitations. No dysuria. She is hypotensive in the emergency room with a blood pressure of 85/42 and has been started on Levophed infusion after placement of a central line. X-ray has shown a dense infiltrate at the left lung base. Review of Systems 2 General: Reports: 10 or more systems reviewed and unremarkable except in HPI and below Const: Denies: fever(s), chills or body aches Eyes: Denies: change in vision, blurry vision or photophobia ENMT: Reports: hoarseness; Denies: throat pain, enlarged tonsils, odynophagia or nasal congestion Card: Denies: chest pain, palpitations, irregular heart rhythm, edema, swelling of feet/ankles, lightheadedness, pre-syncope, dyspnea on exertion or orthopnea Resp: Denies: dyspnea, productive cough, non-productive cough, wheezing, stridor, pain on inspiration, change in phlegm color, hemoptysis or chest congestion GI: Denies: abdominal pain, nausea, vomiting, hematemesis, coffee ground emesis, dysphagia, heartburn, diarrhea, constipation, GI cramping, change in stool character, hematochezia or melena : Denies: flank pain, difficulty voiding, dysuria, urinary frequency, urinary urgency, urinary hesitancy or hematuria Musc: Denies: neck pain, back pain, extremity pain, joint swelling, joint warmth or deformity Neuro: Denies: headache(s), numbness in extremities, weakness in extremities, sensory changes, difficulty walking, frequent falls, dizziness, vertigo, behavioral changes, Slurred speech present or seizure-like activity Psych: Denies: anxiety, depression, suicidal ideation or homicidal ideation Endo: Denies: polyuria, polydipsia, tired all the time, cold intolerance or hot flashes Fito/Lymph: Denies: easy bruising or easy bleeding Medications/Allergies Home Medications ?Medication ?Instructions ?Recorded ?Confirmed ?Last Taken ?Type No Known Home Medications 08/28/1903/10 Unknown History Allergies Allergy/AdvReac Type Severity Reaction Status Date / Time Iodinated Contrast Media Allergy Unknown Verified 08/27/19 08:02 PFSH Acute 2 PFSH: Medical History H/O adenomatous polyp of colon 2016: colon polyps , recommended 3 year follow up COPD exacerbation Anxiety Malignant neoplasm of unspecified part of unspecified bronchus or lung Herpes zoster without complication Cancer, epiglottis Cervical cancer Vitamin D deficiency Claustrophobia Feeding by G-tube Encounter for colonoscopy due to history of colonic polyp Surgical History H/O colonoscopy 08/2019: normal , f/u 10 years History of tubal ligation History of neck surgery Status post lung surgery History of laparoscopic cholecystectomy Family History Other Tuberculosis Social History Smoking and tobacco/nicotine status: former use of tobacco/nicotine Quit status (tobacco/nicotine): has quit using Second hand smoke exposure: No Alcohol intake: current Alcohol intake frequency: few times a week Substance/Drug Use: never Lives independently: Yes Household members: none Vitals/I&O/Wt Last Vital Signs Temp 98 F 03/01/25 22:51 Pulse 103 H 03/02/25 00:29 Resp 19 H 03/02/25 00:29 BP 152/125 03/02/25 00:29 Pulse Ox 94 03/02/25 00:29 O2 Del Method BiPAP 03/02/25 00:29 O2 Flow Rate 5 03/01/25 22:51 FiO2 55 03/01/25 23:13 03/01/25 03/01/25 03/02/25 14:59 22:59 06:59 Intake Total 1000 / 1000 Balance 1000 / 1000 Weight last 48 hrs Weight 58.967 kg Physical Exam 2 Narrative: General: No acute distress, AO x3 HEENT: PERRLA, pupils bilaterally equal and reactive, pallors not present Chest: Diffuse wheezing B/L CVS: S1-S2 regular, no murmurs, no tachycardia, no gallops, no rubs Abdomen: Soft, nontender, no organomegaly, bowel sounds present Neuro: No focal deficits, no facial deformity, AO x3, power 5/5 in all limbs Data 03/01/25 22:51 03/01/25 22:51 Other Labs: Radiology Impressions Wrist X-Ray 03/02/25 00:20 IMPRESSION: No acute findings. Chest X-Ray 03/02/25 02:03 IMPRESSION: 1. Right internal jugular catheter in appropriate position. 2. Minimal improvement of the left lower lobe pulmonary infiltrate which may represent a lobar pneumonia. Laboratory Results WBC 15.24 10^3/uL (3.29-11.43) H 03/01/25 22:51 RBC 3.11 10^6/uL (3.85-5.65) L 03/01/25 22:51 Hgb 7.90 g/dL (11.27-16.99) L 03/01/25 22:51 Hct 25.0 % (36-47) L 03/01/25 22:51 MCV 80.4 fl (85-98) L 03/01/25 22:51 MCH 25.4 pg (27-33) L 03/01/25 22:51 MCHC 31.6 g/dL (30-55) 03/01/25 22:51 RDW 16.3 % (12.1-15.1) H 03/01/25 22:51 Plt Count 325 10^3/cmm (157-399) 03/01/25 22:51 MPV 9.0 fL (7.4-10.4) 03/01/25 22:51 Neut % (Auto) 88.4 % 03/01/25 22:51 Lymph % (Auto) 3.3 % 03/01/25 22:51 Overton % (Auto) 7.5 % 03/01/25 22:51 Eos % (Auto) 0.0 % 03/01/25 22:51 Baso % (Auto) 0.4 % 03/01/25 22:51 Neut # (Auto) 13.47 10^3/uL (1.8-7.7) H 03/01/25 22:51 Lymph # (Auto) 0.5 10^3/uL (0.8-4.8) L 03/01/25 22:51 Overton # (Auto) 1.2 10^3/uL (0.2-0.9) H 03/01/25 22:51 Eos # (Auto) 0.0 10^3/uL (0.0-0.8) 03/01/25 22:51 Baso # (Auto) 0.1 10^3/uL (0.0-0.1) 03/01/25 22:51 Nucleated RBC % (auto) 0 % 03/01/25: Nucleated RBCs # 0.0 /100WBC 03/01/25 22:51 D-Dimer 2.14 ug/mLFEU (0-0.59) H 03/01/25 22:51 Specimen Type Arterial 03/01/25 22:48 Sample Site Brachial, right 03/01/25 22:48 ABG pH 7.43 (7.35-7.45) 03/01/25 22:48 ABG pCO2 41.3 mmHg (35-45) 03/01/25 22:48 ABG pO2 56.3 mmHg (80.0-100.0) L 03/01/25 22:48 ABG HCO3 27.4 mmol/L (22-26) H 03/01/25 22:48 ABG Base Excess 2.8 mmol/L (-2.0-2.0) H 03/01/25 22:48 Tyree Test N/a 03/01/25 22:48 Hematocrit 25.7 % (37-47) L 03/01/25 22:48 Hgb O2 Saturation 85.7 % (95-100) L 03/01/25 22:48 Carboxyhemoglobin 1.3 %THgb (0.4-20.1) 03/01/25 22:48 Methemoglobin 1.5 % (0.4-1.5) 03/01/25 22:48 Total Hemoglobin 8.4 g/dL (12-16) L 03/01/25 22:48 O2 Delivery Device Nc 03/01/25 22:48 O2 Liters/Min 6.0 % 03/01/25 22:48 Personnel Assistant ID [email or web address] 03/01/25 22:48 Sodium 133 mmol/L (136-145) L 03/01/25 22:51 Potassium 3.2 mmol/L (3.5-5.1) L 03/01/25 22:51 Chloride 92 mmol/L (98-107) L 03/01/25 22:51 Carbon Dioxide 26 mmol/L (22-29) 03/01/25 22:51 Anion Gap 18.2 (5-19) 03/01/25 22:51 BUN 15 mg/dL (8-23) 03/01/25 22:51 Creatinine 0.7 mg/dL (0.5-0.9) 03/01/25 22:51 GFR Calculation Not Reportable 03/01/25 22:51 Glucose 108 mg/dL (65-115) 03/01/25 22:51 Calculated Osmolality 277 mOsm/kg (285-295) L 03/01/25 22:51 Lactic Acid 1.8 mmol/L (0.5-2.2) 03/01/25 22:51 Calcium 8.3 mg/dL (8.5-10.5) L 03/01/25 22:51 Total Bilirubin 0.5 mg/dL (0.15-1.2) 03/01/25 22:51 AST 39 U/L (0-32) H 03/01/25 22:51 ALT 21 U/L (0-33) 03/01/25 22:51 Alkaline Phosphatase 100 U/L (35-105) 03/01/25 22:51 Troponin T Baseline 18 ng/L (0-10) H 03/01/25 22:51 Troponin T 120 Minute 20.48 ng/L (0-10) H 03/02/25 00:35 Delta Troponin T 2.48 ABS# (0-10) 03/02/25 00:35 Troponin T Hi Sens 6Hr 15.44 ng/L (0-10) H 03/02/25 05:05 Troponin T Hi Sens 6Hr Delta -2.56 ng/L (0-12) L 03/02/25 05:05 NT-Pro-B Natriuret Pep 556 pg/mL (0-125) H 03/01/25 22:51 Total Protein 5.5 g/dL (6.6-8.7) L 03/01/25 22:51 Albumin 3.6 g/dL (3.5-5.2) 03/01/25 22:51 Globulin 1.9 g/dL (1.3-4.6) 03/01/25 22:51 Nasal MRSA (PCR) Not detected (Not Detecte) 03/02/25 03:45 Influenza A (PCR) Negative (Negative) 03/01/25 23:26 Influenza Type B (PCR) Negative (Negative) 03/01/25 23:26 RSV (PCR) Negative (Negative) 03/01/25 23:26 SARS-CoV-2 (PCR) Negative (Negative) 03/01/25 23:26 Micro: Microbiology 03/01/25 23:41 Blood Culture - Preliminary Blood SPECIMEN COLLECTED 03/01/25 23:38 Blood Culture - Preliminary Blood SPECIMEN COLLECTED A&P Assessment and plan 1. Acute hypoxic respiratory failure: 2. Sepsis: 3. Pneumonia: 4. Lung cancer: 5. Anemia: 6. Syncope: Plan: 75-year-old lady with a past medical history of stroke, COPD, lung cancer on annual surveillance, laryngeal cancer, episodes of syncope in the past was brought to the emergency room today after having had a syncopal episode at home. She was found to be in hypoxic respiratory failure with an oxygen saturation in the 70s. ABG performed upon admission showing a pH of 7.43, PCO2 of 41.3, PO2 of 56.3 on 6 L/min nasal cannula. Chest x-ray is showing a left lower lobe infiltrate concerning for pneumonia. Patient's blood pressure has been fluctuating between 85 systolic to 140 systolic. She has thus far received 2 L of IV fluid bolus in the emergency room and will be maintained on normal saline at 75 cc an hour. Additionally has been started on Levophed infusion to be titrated to keep MAP of 65 mmHg. It is normal at 1.5, capillary refill is normal. Her hypotension appears to be related to sepsis likely from acute infection Blood culture has been collected in the emergency room. She has a history of laryngeal cancer and is noted to be coughing on attempting to take pills in the emergency room, possibility of aspiration pneumonia is not excluded. Started on empiric antibiotic treatment with piperacillin/tazobactam and azithromycin. Check sputum Gram stain and culture Urine bacterial antigen, MRSA nasal screen. Respiratory panel is negative for COVID influenza and RSV. Speech therapy evaluation has been ordered for swallow eval. Cannot recall having had a swallow study in the past CT of the chest is additionally requested due to elevated D-dimer at 2.14. With a history of cancer, she remains at a high risk of PE as being a cause of her hypoxic failure. Patient's chart notes a history of contrast to iodinated contrast media. She reports this as diffuse hives. With her previous CAT scans she receives contrast routinely after being premedicated with prednisone. She agrees to premedication today and to proceed with IV contrast for CT chest. Lovenox 60 mg SC x 1 (gram per kilogram) given while awaiting CT of the chest. If CT does show evidence of PE, will begin anticoagulation with Lovenox 1 mg/kg subcutaneously every 12 hours. Until then maintain prophylactic dosing. Premedication with methylprednisolone 40 mg IV 5 hours and [address] Additionally Benadryl 25 mg IV to be administered [address] Patient's chest has diffuse wheezing to auscultation. Though she denies a known history of COPD, she is noted to be on LABA, steroid inhaler at home. COPD exacerbation might be contributing to the current clinical picture. Steroids methylprednisolone 40 mg IV every 8 hours. Scheduled nebulization with DuoNeb and budesonide added. Bipap Ventilation if needed in case of worsening respiratory status Anemia, hemoglobin at 7.8, unknown past baseline. Check fecal occult blood, iron panel, ferritin, TIBC, B12 and folate. Cause of syncope unclear at this time. Potentially may be related to hypotension on several occasions today. PE additionally would need to be ruled out. Denies any chest pain. Sinus rhythm at 92 bpm. DVT prophylaxis: Lovenox 40 Full code PDMP PDMP Reviewed: Not Reviewed Attestations 2 Medical Necessity Statement*: Than 2 midnight stay is anticipated Critical Care Time: The high probability of a clinically significant, sudden or life threatening deterioration of the patient's [respiratory, ID ] system(s) required my full and direct attention, intervention and personal management. The critical care time is as shown. This time is in addition to time spent performing any reported procedures but includes the following: [x] Data and vital sign review and interpretation [x] Patient assessment, examination and intervention [x] Documentation [x] Medication orders and management Critical Care Time (min): 55 Coding Level of Care Code Acute Code for [facility] Diagnoses Acute hypoxic respiratory failure J96.01 Sepsis A41.9 Pneumonia J18.9 Lung cancer C34.90 Anemia D64.9 Syncope R55
--- NOTE | 2025-03-02 00:47 | ECG_ITS ---
[facility] Date: 2025-03[facility]01 Pat Name: Teri Graham Department: Room: [facility]06 Gender: Female Supervisor [employer]: : 1950 Requested By: Alfredo Rosales Order Number: [id number] Nidia MD: Luann Morrow M.D. Measurements Intervals [place] Rate: 106 P: 27 AR: 128 QRS: 24 QRSD: 78 T: 93 QT: 345 QTc: 460 Interpretive Statements SINUS TACHYCARDIA MODERATE ST DEPRESSION [0.05+ mV ST DEPRESSION] ABNORMAL QRS-T ANGLE [QRS-T AXIS DIFFERENCE > 60] Compared to ECG 03/09/2018 15:04:07 ST (T wave) deviation now present Sinus rhythm no longer present First degree AV block no longer present Electronically Signed On 03-06-2025 00:35:19 CDT by Luann Morrow M.D. [email or web address] [id number]
[2025-03-02] MEDS: norepinephrine 4 MG/250 ML BAG 30 MG IV (00:49)
[2025-03-02 01:04] LABS: Troponin 5 2HR 20.48 ng/L (0-10); Troponin 5 2HR Delta 2.48 ABS# (0-10)
[2025-03-02] MEDS: VANCOMYCIN ADD-Vantage 1,000 MG in 0.9% NaCl ADD-Vantage 250 ML 250 MG IV (01:33)
--- NOTE | 2025-03-02 02:03 | XRR_ITS ---
PROCEDURE INFORMATION: Exam: XR Chest Exam date and time: 03/02/2025 2:17 AM Age: 75 years old Clinical indication: Other vascular access device placement or adjustment; Central line, non-tunnelled; Prior surgery; Surgery date: 6+ months; Check S/P RT central line placement. History of lung cancer. TECHNIQUE: Imaging protocol: Radiologic exam of the chest. Views: 1 view. COMPARISON: CR (CHEST, ) 03/01/2025 10:54 PM FINDINGS: Tubes, catheters and devices: Right internal jugular catheter with the tip projecting over the superior vena cava. Lungs: Minimal improvement of the left lower lobe pulmonary infiltrate which may represent a lobar pneumonia. Pleural spaces: Unremarkable. No pleural effusion. No pneumothorax. Heart/Mediastinum: Unremarkable. No cardiomegaly. Bones/joints: Unremarkable. XR/XR chest 1V portable [id number] IMPRESSION: 1. Right internal jugular catheter in appropriate position. 2. Minimal improvement of the left lower lobe pulmonary infiltrate which may represent a lobar pneumonia.
--- NOTE | 2025-03-02 02:47 | CTR_ITS ---
PROCEDURE INFORMATION: Exam: CTA Chest With Contrast Exam date and time: 03/02/2025 10:11 AM Age: 75 years old Clinical indication: Shortness of breath; Prior surgery; Surgery date: 6+ months; Surgery type: RT lung; Additional info: Assess for pe, known lung cancer, S/P right lobectomy 2016, with recently noted increasing TECHNIQUE: Imaging protocol: Computed tomographic angiography of the chest with contrast. Exam focused on the arteries. 3D rendering (Not supervised by radiologist): MIP and/or 3D reconstructed images were created by the technologist. Radiation optimization: All CT scans at this facility use at least one of these dose optimization techniques: automated exposure control; mA and/or kV adjustment per patient size (includes targeted exams where dose is matched to clinical indication); or iterative reconstruction. Contrast material: OMNI 350; Contrast volume: 62 ml; Contrast route: INTRAVENOUS (IV); COMPARISON: CR (CHEST, ) 03/02/2025 2:17 AM RADIATION DOSE METRICS: Total DLP (mGy-cm): 281.96 FINDINGS: Pulmonary arteries: No pulmonary embolism. Aorta: Mild calcified atherosclerotic changes are seen in the thoracic aorta. Lungs: Soft tissue densities are seen in the left lower lobe bronchials. Consolidation is seen in the left lower lobe. Soft tissue densities are seen in the right lower lobe and right upper lobe bronchials. Small infiltrates are seen in the left upper lobe posteriorly. Mild bilateral emphysematous changes. Branching nodular lesions are seen in the right upper lobe in the right lower lobe. Pleural spaces: Unremarkable. No pneumothorax. No pleural effusion. Heart: Unremarkable. No cardiomegaly. No pericardial effusion. Lymph nodes: There is a enlarged paratracheal lymph node measuring 1.2 x 1.4 cm. Bones/joints: Unremarkable. No acute fracture. Soft tissues: Unremarkable. CT/CT angio chest PE protcl [id number] IMPRESSION: 1. No pulmonary embolism. 2. Mediastinal adenopathy could be reactive. Imaging follow-up is advised. 3. Mucous plugging in the right upper lobe, right lower lobe and left lower lobe. 4. Left lower lobe consolidation. Left upper lobe infiltrate. Multifocal pneumonia can not be excluded. Imaging follow-up until resolution is advised. 5. Bilateral pulmonary branching nodular lesions could represent small airway infection. Imaging follow-up is advised. 6. Mild calcified atherosclerotic changes are seen in the thoracic aorta. COMMENTS: The presence of pulmonary emphysema on CT is an independent risk factor for lung cancer. In the absence of a history or active diagnosis of lung cancer, it is recommended that this patient with emphysema be evaluated for enrollment in a low dose CT lung cancer screening program.
--- NOTE | 2025-03-02 04:09 | ECG_ITS ---
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 Measurements Intervals [place] Rate: 92 P: 63 WV: 188 QRS: 25 QRSD: 75 T: 61 QT: 353 QTc: 437 Interpretive Statements SINUS RHYTHM Compared to ECG 03/01/2025 22:43:05 Sinus tachycardia no longer present ST (T wave) deviation no longer present Electronically Signed On 03-06-2025 00:34:56 CDT by Luann Morrow M.D. [email or web address] [id number]
[2025-03-02] MEDS: methylPREDNISolone sod succ 40 mg/mL INJ IVP ×3 (04:15→18:15)
[2025-03-02 05:11] LABS: MRSA PCR OZH (swab) NOT DETECTED (Not Detecte)
[2025-03-02 05:43] LABS: Troponin 5 6HR 15.44 ng/L (0-10)
[2025-03-02 05:44] LABS: Troponin 5 6HR Delta -2.56 ng/L (0-12)
[2025-03-02] MEDS: piperacillin-tazobactam 3.375 GM in sodium chloride 0.9% (plus) 50 ML IV ×3 (08:04→22:59)
[2025-03-02] MEDS: diphenhydrAMINE 50 mg/mL SDV 1mL 25 MG IVP (09:09)
[2025-03-02 09:35] LABS: Hematocrit 24.4 % (36-47); Hemoglobin 7.50 g/dL (11.27-16.99); Mean Corpuscular HGB Conc 30.7 g/dL (30-55); Mean Corpuscular Hemoglobin 24.8 pg (27-33); Mean Corpuscular Volume 80.8 fl (85-98); Nucleated Red Blood Cells % 0 %; Platelet Count 310 10^3/cmm (157-399); Red Blood Count 3.02 10^6/uL (3.85-5.65); White Blood Count 23.38 10^3/uL (3.29-11.43)
[2025-03-02 09:53] LABS: Ferritin 42 ng/mL (15-150); Iron 8 ug/dL (37-145); Total Iron Binding Capacity 331 mcg/dl; Unsaturated Iron Binding 323 ug/dL (112-347)
[2025-03-02 09:59] LABS: Procalcitonin 8.06 ng/mL (0-0.5)
[2025-03-02] MEDS: iohexol 350 mg/mL 500 mL Btl (per mL) IV (10:19)
--- NOTE | 2025-03-02 13:24 | PHA.VACGOAL ---
Vancomycin Goal - Goal Vancomycin Goal:: 15-20 mg/L Vancomycin Indication:: Pneumonia - Therapy Current therapy:: Pip/Tazo Day of therpy:: Day [1]of [] . Actual body weight (kg): 62.5 kg - Data Labs: WBC 23.38 10^3/uL (3.29-11.43) H 03/02/25 09:26 RBC 3.02 10^6/uL (3.85-5.65) L 03/02/25 09:26 Hgb 7.50 g/dL (11.27-16.99) L 03/02/25 09:26 Hct 24.4 % (36-47) L 03/02/25 09:26 MCV 80.8 fl (85-98) L 03/02/25 09:26 MCH 24.8 pg (27-33) L 03/02/25 09:26 MCHC 30.7 g/dL (30-55) 03/02/25 09:26 RDW 16.4 % (12.1-15.1) H 03/02/25 09:26 Sodium 133 mmol/L (136-145) L 03/01/25 22:51 Potassium 3.2 mmol/L (3.5-5.1) L 03/01/25 22:51 Chloride 92 mmol/L (98-107) L 03/01/25 22:51 Carbon Dioxide 26 mmol/L (22-29) 03/01/25 22:51 Anion Gap 18.2 (5-19) 03/01/25 22:51 BUN 15 mg/dL (8-23) 03/01/25 22:51 Creatinine 0.7 mg/dL (0.5-0.9) 03/01/25 22:51 GFR Calculation Not Reportable 03/01/25 22:51 Treatment plan:: new consult Regimen:: New start vancomycin for Pneumonia. No prior vancomycin history found. 1000 mg dose given in the ER. Started on maintenance dose of 1000 mg q18h.
[2025-03-02] MEDS: acetylcysteine 200 mg/mL MDV 10 mL 100 MG INHALATION ×2 (13:27→21:44)
[2025-03-02] MEDS: sodium chloride 3.5% neb 4 mL Neb INHALATION ×2 (13:27→21:43)
--- NOTE | 2025-03-02 17:08 | P.PN_ITS ---
Subjective 2 Subjective: Patient was seen this morning, her daughter is at bedside she reports episodes of syncope, they can occur when changing position they can occur when she is at rest, she is also fallen because of the syncopal episodes, denies any significant pain complaints associate with her fall, reports significant fatigue, malaise, no nausea, vomiting, abdominal pain, no seizure-like episodes, no face droop no slurring of words Vitals/I&O/Wt Last Vital Signs Temp 98.6 F 03/02/25 08:30 Pulse 101 H 03/02/25 13:44 Resp 18 03/02/25 13:28 BP 165/87 03/02/25 12:30 Pulse Ox 96 03/02/25 13:28 O2 Del Method Nasal Cannula 03/02/25 08:30 O2 Flow Rate 5 03/02/25 13:28 FiO2 55 03/01/25 23:13 03/02/25 03/02/25 03/02/25 06:59 14:59 22:59 Intake Total 586.75 / 1586.75 2784.01 / 2784.01 Output Total 250 / 250 1800 / 1800 Balance 336.75 / 1336.75 984.01 / 984.01 Weight last 48 hrs Weight 62.5 kg Weight 62.5 kg Weight 58.967 kg Physical Exam 2 Const: COMMON NORMALS: no acute distress and patient oriented x3 Resp: COMMON NORMALS: normal respiratory effort, No retractions and No use of accessory muscles AUSCULTATION: crackles and wheezes Cardio: COMMON NORMALS: regular rate, regular rhythm, S1 normal heart sound present and S2 normal heart sound present RATE: regular rate RHYTHM: r egular rhythm HEART SOUNDS: S1 normal heart sound present and S2 normal heart sound present GI: COMMON NORMALS: Normal to inspection, nondistended, normoactive bowel sounds present and non-tender Extremity: COMMON NORMALS: no pedal edema Neuro: COMMON NORMALS: patient oriented x3 Psych: COMMON NORMALS: mental status grossly normal Data 03/02/25 09:26 03/01/25 22:51 Micro: Microbiology 03/02/25 11:40 Gram Stain - Final Sputum - Expectorated Sputum 03/02/25 04:00 Legionella Urinary Antigen - Final Urine,Voided Bacterial Antigens - Final 03/01/25 23:41 Blood Culture - Preliminary Blood SPECIMEN COLLECTED 03/01/25 23:38 Blood Culture - Preliminary Blood SPECIMEN COLLECTED A&P Assessment and plan 1. Acute hypoxic respiratory failure: 2. Sepsis: 3. Pneumonia: 4. Lung cancer: 5. Anemia: 6. Syncope: 7. Mucus plugging of bronchi: 8. Septic shock: 9. NSTEMI (non-ST elevated myocardial infarction): Plan: Septic shock - Secondary to pneumonia - Maintain MAP greater than 65 Acute hypoxic respiratory failure - Multifactorial - Secondary to mucous plugging - Secondary to pneumonia - History of lung cancer -COPD exacerbation CT of the lung CT/CT angio chest PE protcl [id number] IMPRESSION: 1. No pulmonary embolism. 2. Mediastinal adenopathy could be reactive. Imaging follow-up is advised. 3. Mucous plugging in the right upper lobe, right lower lobe and left lower lobe. 4. Left lower lobe consolidation. Left upper lobe infiltrate. Multifocal pneumonia can not be excluded. Imaging follow-up until resolution is advised. 5. Bilateral pulmonary branching nodular lesions could represent small airway infection. Imaging follow-up is advised. 6. Mild calcified atherosclerotic changes are seen in the thoracic aorta. Plan -Continue broad-spectrum antibiotic therapy - Vancomycin - Zosyn - Azithromycin -IV steroids - DuoNeb - Budesonide - Chest vest therapy, hypertonic saline, Mucomyst History of laryngeal cancer - Reported coughing episodes in the emergency department - Aspiration precautions - Dysphagia level diet, moderate thickening NSTEMI - Serial kidneys, troponins, telemetry monitoring Syncopal episodes - Cardiac echo - Carotid artery ultrasound Acute on chronic anemia - Early evidence of iron deficiency anemia - Protonix, Carafate History of stroke Full code Lovenox for DVT prophylaxis PDMP PDMP Reviewed: Not Reviewed Attestations 2 Medical Necessity Statement*: Patient requires hospitalization, inpatient, greater than 2 midnights, for acute hypoxic respiratory failure, pneumonia, mucous plugging, sepsis, septic shock, NSTEMI, syncope Diagnoses Acute hypoxic respiratory failure J96.01 Sepsis A41.9 Pneumonia J18.9 Lung cancer C34.90 Anemia D64.9 Syncope R55 Mucus plugging of bronchi T17.500A Septic shock A41.9; R65.21 NSTEMI (non-ST elevated myocardial infarction) I21.4 Sepsis Event Note Evaluation Current stage of sepsis: sepsis Initial hypotension due to sepsis/infection: SBP < 90 mmHg Possible source: pulmonary Focused Exam Vital Signs Temp Pulse Resp BP Pulse Ox O2 Del Method O2 Flow Rate 03/02/25 13:44 101 H 03/02/25 13:28 96 18 96 5 03/02/25 12:30 99 18 165/87 93 03/02/25 12:15 98 27 H 96 03/02/25 12:00 152/96 03/02/25 11:45 95 24 H 151/116 93 03/02/25 11:30 97 15 166/121 95 03/02/25 11:15 93 20 H 139/83 94 03/02/25 11:00 96 20 H 139/83 95 03/02/25 10:45 96 21 H 139/83 93 03/02/25 10:30 91 23 H 139/83 98 03/02/25 10:15 139/83 03/02/25 10:00 88 18 119/74 98 03/02/25 09:45 86 17 151/90 03/02/25 09:30 88 17 03/02/25 09:15 89 17 97 03/02/25 09:00 89 18 99 03/02/25 08:45 91 16 98 03/02/25 08:30 98.6 F 94 21 H 146/85 95 Nasal Cannula 4 03/02/25 08:15 92 16 138/77 97 03/02/25 08:00 88 24 H 147/84 99 03/02/25 07:48 89 03/02/25 07:45 89 15 145/80 97 03/02/25 07:35 93 18 97 Nasal Cannula 6 03/02/25 07:30 90 24 H 155/89 98 03/02/25 07:15 92 21 H 131/83 98 03/02/25 07:00 89 21 H 117/77 99 03/02/25 06:45 85 16 96/64 100 03/02/25 06:30 85 15 117/68 99 03/02/25 06:15 87 18 146/81 98 03/02/25 06:00 88 16 123/74 99 03/02/25 06:00 88 03/02/25 05:45 87 16 121/70 98 03/02/25 05:30 87 18 126/78 99 03/02/25 05:15 87 20 H 110/66 98 Respiratory exam: Present wheezes Cardiovascular exam: Present S1, S2 and tachycardia Capillary refill: > 3 Seconds Peripheral pulse strength: 2+ Slightly Diminished Peripheral pulse location: Radial Skin exam: pale Date exam was performed: 03/02/25 Time exam was performed: 09:00 Problem List 1. Acute hypoxic respiratory failure: Status: Acute 2. Sepsis: Status: Acute 3. Pneumonia: Status: Acute 4. Lung cancer: Status: Acute 5. Anemia: Status: Acute 6. Syncope: Status: Acute 7. Mucus plugging of bronchi: Status: Acute 8. Septic shock: Status: Acute 9. NSTEMI (non-ST elevated myocardial infarction): Status: Acute
[2025-03-02] MEDS: pantoprazole 40 mg SDV IVP (17:29)
[2025-03-02] MEDS: sucralfate 1 gm/10 mL Oral Liq UDC PO ×2 (17:29→22:58)
--- NOTE | 2025-03-02 17:51 | PC.NURSE ---
Shift Summary: Uneventful shift. Received meds as ordered. No reaction to iodinated contrast media during CT. Frequently up to the bathroom, standby assist. Up to a chair for part of shift. Rhonchi breaths sounds in all lung [place], present throughout the whole day, but significantly improved compared to this morning. Most improvement occurred after chest vest. No levophed required, central line removed. TOtal urine output: 2200 mL
[2025-03-03] VITALS (34 sets, daily range): BP systolic 110–181; BP diastolic 64–104; PULSE 85–104; RESP 16–30; TEMP 36.7–37.4; O2SAT 92–99
[2025-03-03] MEDS: methylPREDNISolone sod succ 40 mg/mL INJ IVP ×3 (02:30→18:22)
[2025-03-03 04:32] LABS: Hematocrit 21.1 % (36-47); Hemoglobin 6.60 g/dL (11.27-16.99); Mean Corpuscular HGB Conc 31.3 g/dL (30-55); Mean Corpuscular Hemoglobin 25.2 pg (27-33); Mean Corpuscular Volume 80.5 fl (85-98); Nucleated Red Blood Cells % 0 %; Platelet Count 308 10^3/cmm (157-399); Red Blood Count 2.62 10^6/uL (3.85-5.65); White Blood Count 20.71 10^3/uL (3.29-11.43)
[2025-03-03 04:50] LABS: Lactate (Lactic Acid level) 0.9 mmol/L (0.5-2.2)
[2025-03-03 04:58] LABS: Ferritin 60 ng/mL (15-150); Iron 8 ug/dL (37-145); Total Iron Binding Capacity 287 mcg/dl; Unsaturated Iron Binding 279 ug/dL (112-347)
[2025-03-03 04:59] LABS: Alanine Aminotransferase 29 U/L (0-33); Albumin Level 3.3 g/dL (3.5-5.2); Alkaline Phosphatase 72 U/L (35-105); Anion Gap 17.6 (5-19); Aspartate Amino Transferase 32 U/L (0-32); Blood Urea Nitrogen 13 mg/dL (8-23); Calcium 8.2 mg/dL (8.5-10.5); Carbon Dioxide 22 mmol/L (22-29); Chloride 101 mmol/L (98-107); Creatinine Clr Calc Pharmacy 54.4387; Globulin 1.8 g/dL (1.3-4.6); Glucose 137 mg/dL (65-115); Magnesium 2.1 mg/dL (1.7-2.3); Osmolality Calculated 286 mOsm/kg (285-295); Potassium 3.6 mmol/L (3.5-5.1); Sodium 137 mmol/L (136-145); Total Protein 5.1 g/dL (6.6-8.7)
[2025-03-03 05:00] LABS: Procalcitonin 5.24 ng/mL (0-0.5)
[2025-03-03 05:11] LABS: Vitamin B12 840 pg/mL (232-1245)
[2025-03-03] MEDS: sucralfate 1 gm/10 mL Oral Liq UDC PO ×4 (05:11→23:43)
[2025-03-03] MEDS: pantoprazole 40 mg SDV IVP ×2 (05:11→17:16)
--- NOTE | 2025-03-03 07:00 | XRR_ITS ---
PROCEDURE INFORMATION: Exam: XR Chest Exam date and time: 03/03/2025 6:06 AM Age: 75 years old Clinical indication: Shortness of breath; Prior surgery; Surgery date: 6+ months; Surgery type: Lung; Additional info: SOB TECHNIQUE: Imaging protocol: Radiologic exam of the chest. Views: 1 view. COMPARISON: CT angio chest PE protcl [id number] 03/02/2025 10:11 AM FINDINGS: Lungs: Pulmonary vessels are within normal limits. Smaller left basilar infiltrate. Bilateral emphysematous changes. Pleural spaces: No pneumothorax. Heart/Mediastinum: Cardiomediastinal silhouette is within normal limits. Bones/joints: Unremarkable. XR/XR chest 1V portable [id number] IMPRESSION: Smaller left basilar infiltrate.
[2025-03-03] MEDS: acetylcysteine 200 mg/mL MDV 10 mL 100 MG INHALATION ×3 (07:17→20:56)
[2025-03-03] MEDS: sodium chloride 3.5% neb 4 mL Neb INHALATION ×2 (07:17→20:55)
[2025-03-03] MEDS: piperacillin-tazobactam 3.375 GM in sodium chloride 0.9% (plus) 50 ML IV ×3 (09:28→23:43)
[2025-03-03] MEDS: polyethylene glycol 3350 Pkt 17 gm PO (10:17)
--- NOTE | 2025-03-03 13:52 | P.PN_ITS ---
Subjective 2 Subjective: Patient was seen this morning, currently alert to person, to place, to time she follows all commands, tells me her shortness of breath is improving she is on 4 L, continues to have a productive cough, no lightheadedness, dizziness, no blood or black stools reported, we discussed her anemia requiring 1 unit PRBC, which I have ordered, discussed her sepsis her blood pressures are reasonable she is actually hypertensive but she has not required Levophed, discussed continue antibiotics for her pneumonia, Vitals/I&O/Wt Last Vital Signs Temp 98.3 F 03/03/25 12:00 Pulse 94 03/03/25 12:00 Resp 16 03/03/25 12:00 BP 169/93 03/03/25 12:00 Pulse Ox 96 03/03/25 12:00 O2 Del Method Nasal Cannula 03/03/25 12:00 O2 Flow Rate 4 03/03/25 12:00 FiO2 55 03/01/25 23:13 03/02/25 03/03/25 03/03/25 22:59 06:59 14:59 Intake Total 835 / 3619.01 850 / 4469.01 650 / 650 Output Total 400 / 2200 750 / 750 Balance 435 / 1419.01 850 / 2269.01 -100 / -100 Weight last 48 hrs Weight 62.686 kg Weight 62.5 kg Weight 62.5 kg Weight 58.967 kg Physical Exam 2 Const: COMMON NORMALS: no acute distress and patient oriented x3 Resp: COMMON NORMALS: normal respiratory effort, No retractions and No use of accessory muscles AUSCULTATION: crackles and wheezes Cardio: COMMON NORMALS: regular rate, regular rhythm, S1 normal heart sound present and S2 normal heart sound present RATE: regular rate RHYTHM: r egular rhythm HEART SOUNDS: S1 normal heart sound present and S2 normal heart sound present GI: COMMON NORMALS: Normal to inspection, nondistended, normoactive bowel sounds present and non-tender Extremity: COMMON NORMALS: no pedal edema Neuro: COMMON NORMALS: patient oriented x3 Psych: COMMON NORMALS: mental status grossly normal Data 03/03/25 03:51 03/03/25 03:51 Micro: Microbiology 03/02/25 11:40 Gram Stain - Final Sputum - Expectorated Sputum Sputum Culture - Preliminary Gram Negative Rods 03/01/25 23:41 Blood Culture - Preliminary Blood NEGATIVE TO DATE 03/01/25 23:38 Blood Culture - Preliminary Blood NEGATIVE TO DATE 03/02/25 04:00 Legionella Urinary Antigen - Final Urine,Voided Bacterial Antigens - Final A&P Assessment and plan 1. Acute hypoxic respiratory failure: 2. Sepsis: 3. Pneumonia: 4. Lung cancer: 5. Anemia: 6. Syncope: 7. Mucus plugging of bronchi: 8. Septic shock: 9. NSTEMI (non-ST elevated myocardial infarction): Plan: Septic shock, resolved - Secondary to pneumonia - Maintain MAP greater than 65 Acute hypoxic respiratory failure - Multifactorial - Secondary to mucous plugging - Secondary to pneumonia - History of lung cancer -COPD exacerbation CT of the lung CT/CT angio chest PE protcl [id number] IMPRESSION: 1. No pulmonary embolism. 2. Mediastinal adenopathy could be reactive. Imaging follow-up is advised. 3. Mucous plugging in the right upper lobe, right lower lobe and left lower lobe. 4. Left lower lobe consolidation. Left upper lobe infiltrate. Multifocal pneumonia can not be excluded. Imaging follow-up until resolution is advised. 5. Bilateral pulmonary branching nodular lesions could represent small airway infection. Imaging follow-up is advised. 6. Mild calcified atherosclerotic changes are seen in the thoracic aorta. Plan -Continue broad-spectrum antibiotic therapy - Vancomycin - Zosyn - Azithromycin -IV steroids - DuoNeb - Budesonide - Chest vest therapy, hypertonic saline, Mucomyst History of laryngeal cancer - Reported coughing episodes in the emergency department - Aspiration precautions - Dysphagia level diet, moderate thickening NSTEMI - Serial kidneys, troponins, telemetry monitoring Syncopal episodes - Cardiac echo pending - Carotid artery ultrasound no findings Acute on chronic anemia, hemoglobin 6.6 - Early evidence of iron deficiency anemia - Protonix, Carafate - Transfuse 1 unit PRBC History of stroke Full code Lovenox for DVT prophylaxis currently on hold given acute on chronic anemia, SCDs PDMP PDMP Reviewed: Not Reviewed Attestations 2 Medical Necessity Statement*: Patient requires hospitalization for sepsis, pneumonia, NSTEMI, acute on chronic anemia Diagnoses Acute hypoxic respiratory failure J96.01 Sepsis A41.9 Pneumonia J18.9 Lung cancer C34.90 Anemia D64.9 Syncope R55 Mucus plugging of bronchi T17.500A Septic shock A41.9; R65.21 NSTEMI (non-ST elevated myocardial infarction) I21.4
--- NOTE | 2025-03-03 17:12 | USR_ITS ---
PROCEDURE INFORMATION: Exam: US Duplex Bilateral Extracranial Arteries; Complete; Carotid Arteries Exam date and time: 03/03/2025 9:32 AM Age: 75 years old Clinical indication: Syncope and collapse TECHNIQUE: Imaging protocol: Real-time duplex ultrasound scan of the bilateral extracranial arteries combining anderson scale, color Doppler and spectral waveform analysis with image documentation. Complete exam. Exam focused on the carotid arteries. COMPARISON: CT angio chest PE protcl [id number] 03/02/2025 10:11 AM FINDINGS: Right common carotid artery: Peak systolic velocity 92cm/s Right internal carotid artery: Peak systolic velocity 177 cm/s. Right ICA/CCA ratio: 1.9 Right external carotid artery: No stenosis in the origin. Right vertebral artery: Unremarkable. Antegrade flow. Left common carotid artery: Peak systolic velocity 103 cm/s. Left internal carotid artery: Peak systolic velocity 106 cm/s. Left ICA/CCA ratio: 1.2 Left external carotid artery: No stenosis in the origin. Left vertebral artery: Unremarkable. Antegrade flow. US/CV carotid duplex BI* [id number] IMPRESSION: No carotid arterial stenosis. REFERENCES: SRU CRITERIA. The degree of internal carotid artery stenosis is based on criteria defined by the Society of Radiologists in Ultrasound (SRU). Normal is no stenosis. Mild is less than 50% stenosis. Moderate is 50-69% stenosis. Severe is greater than 69% stenosis to near occlusion. Near occlusion is a markedly narrowed lumen. Total occlusion is no detectable patent lumen. Reference: Carlos Varela, et al. Carotid Artery Stenosis: Anderson-Scale and Doppler US Diagnosis-Society of Radiologists in Ultrasound Consensus Conference. Radiology 2003; 229:340-346.
--- NOTE | 2025-03-03 17:12 | USCV_ITS ---
Teri Graham Age: 75 Gender: F : 1950 Exam Date: 03/03/2025 09:01 Ordering Phys: Murray Reyes MD Technologist: Bj Curry [place] [facility] [place]: syncope BP: 140 / 70 HR: 94 Rhythm: Sinus Technical Quality: Adequate MEASUREMENTS (Male / Female) Normal Values 2D ECHO LV Diastolic Diameter PLAX 3.2 cm 4.2 - 5.9 / 3.9 - 5.3 cm IVS Diastolic Thickness 0.8 cm 0.6 - 1.0 / 0.6 - 0.9 cm IVS Systolic Thickness 1.2 cm LVPW Diastolic Thickness 1.9 cm 0.6 - 1.0 / 0.6 - 0.9 cm LVPW Systolic Thickness 1.8 cm LVOT Diameter 2.0 cm LV Ejection Fraction 2D Teich 67.0 % LV Ejection Fraction MOD 4C 76.1 % LV Ejection Fraction MOD 2C 70.2 % LV Ejection Fraction 2C AL 69.8 % LA Diameter 3.5 cm RA Systolic Volume 4C AL 35.1 ml RA Systolic Volume 4C MOD 33.0 ml LA Sys Volume AL 50.4 cm cubed LA Sys Volume Index AL 30.2 cm cubed/m squared Aorta at Sinotubular Diameter 2.1 cm IVC Diameter 2.0 cm M-MODE LA Ao Ratio MM 1.0 AV Cusp Separation MM 1.4 cm DOPPLER AV Peak Velocity 175.0 cm/s LVOT Peak Velocity 100.0 cm/s AV Area Cont Eq vti 2.3 cm squared AV Area Cont Eq pk 1.8 cm squared MV Peak Velocity 159.0 cm/s MV Area PHT 12.1 cm squared Mitral E to A Ratio 0.9 TV Peak Velocity 339.0 cm/s TR Peak Velocity 360.0 cm/s TR Peak Gradient 51.8 mmHg TR Mean Velocity 302.0 cm/s TR Mean Gradient 38.5 mmHg TR Velocity Time Integral 104.7 cm PV Peak Velocity 127.3 cm/s RV Ejection Time 0.3 s FINDINGS Left Ventricle Left ventricle is normal in size. LV systolic function is normal with EF of 60-65%. No regional wall motion abnormalities are seen. Grade 1 diastolic dysfunction Right Ventricle Normal in size and function Right Atrium Normal in size Left Atrium Normal in size Mitral Valve Structurally normal mitral valve. Mild mitral regurgitation. Aortic Valve Structurally normal aortic valve. No significant stenosis or regurgitation. Tricuspid Valve Mild tricuspid regurgitation. RVSP is 40-45 mmHg. This is consistent with mild pulmonary hypertension Pulmonic Valve Not well visualized Pericardium Normal Aorta Normal in size IVC Appears to be normal CONCLUSIONS LV systolic function is normal with EF of 55-60% Grade 1 diastolic dysfunction Mild mitral regurgitation Mild tricuspid regurgitation Mild pulmonary hypertension No comparison studies are available. Felix Pate MD (Electronically Signed) Final Date: 03 March 2025 17:21 S
--- NOTE | 2025-03-03 17:52 | PC.NURSE ---
SHift SUmmary: Uneventful shift. Rested in bed throughout the day, but up frequently to either the chair or the bedside commode. Nurse was standby only for transfers due to low hemoglobin, but patient required no assistance. 1 unit of blood started transfusing near end of shift (delay starting transfusion due to antibody screening difficulties) Breath sounds are improved compared to yesterday and have continued to improve. started on amlodipine. total urine output: 2150 mL.
[2025-03-04] VITALS (28 sets, daily range): BP systolic 116–160; BP diastolic 73–102; PULSE 70–94; RESP 12–22; TEMP 36.4–37.2; O2SAT 90–97
[2025-03-04 00:11] LABS: Hematocrit 27.0 % (36-47); Hemoglobin 8.90 g/dL (11.27-16.99)
[2025-03-04] MEDS: methylPREDNISolone sod succ 40 mg/mL INJ IVP ×2 (03:12→09:56)
[2025-03-04 05:11] LABS: Hematocrit 26.6 % (36-47); Hemoglobin 8.60 g/dL (11.27-16.99); Mean Corpuscular HGB Conc 32.3 g/dL (30-55); Mean Corpuscular Hemoglobin 25.8 pg (27-33); Mean Corpuscular Volume 79.9 fl (85-98); Nucleated Red Blood Cells % 0 %; Platelet Count 310 10^3/cmm (157-399); Red Blood Count 3.33 10^6/uL (3.85-5.65); White Blood Count 18.48 10^3/uL (3.29-11.43)
[2025-03-04 05:26] LABS: Lactate (Lactic Acid level) 1.0 mmol/L (0.5-2.2)
[2025-03-04 05:34] LABS: Alanine Aminotransferase 24 U/L (0-33); Albumin Level 3.6 g/dL (3.5-5.2); Alkaline Phosphatase 78 U/L (35-105); Anion Gap 15.2 (5-19); Aspartate Amino Transferase 21 U/L (0-32); Blood Urea Nitrogen 11 mg/dL (8-23); Calcium 8.8 mg/dL (8.5-10.5); Carbon Dioxide 26 mmol/L (22-29); Chloride 99 mmol/L (98-107); Creatinine Clr Calc Pharmacy 54.5122; Globulin 2.1 g/dL (1.3-4.6); Glucose 126 mg/dL (65-115); Osmolality Calculated 285 mOsm/kg (285-295); Potassium 3.2 mmol/L (3.5-5.1); Sodium 137 mmol/L (136-145); Total Protein 5.7 g/dL (6.6-8.7)
[2025-03-04 05:36] LABS: Procalcitonin 2.87 ng/mL (0-0.5)
[2025-03-04] MEDS: sucralfate 1 gm/10 mL Oral Liq UDC PO ×4 (05:40→22:36)
[2025-03-04] MEDS: pantoprazole 40 mg SDV IVP ×2 (05:40→16:19)
[2025-03-04] MEDS: polyethylene glycol 3350 Pkt 17 gm PO (07:41)
[2025-03-04] MEDS: piperacillin-tazobactam 3.375 GM in sodium chloride 0.9% (plus) 50 ML IV ×3 (07:41→23:55)
[2025-03-04] MEDS: acetylcysteine 200 mg/mL MDV 10 mL 100 MG INHALATION ×3 (08:20→20:55)
[2025-03-04] MEDS: sodium chloride 3.5% neb 4 mL Neb INHALATION ×2 (08:20→20:54)
--- NOTE | 2025-03-04 16:06 | PC.SOCIAL ---
IMM updated IMM dated and initialed, Copy placed in chart and copy given to patient
--- NOTE | 2025-03-04 16:19 | P.PN_ITS ---
Subjective 2 Subjective: Patient was seen this morning, currently alert oriented x 3, following all commands, denies any fevers, chills, as a cough she does report generalized weakness, does report shortness of breath Vitals/I&O/Wt Last Vital Signs Temp 98.9 F 03/04/25 16:00 Pulse 92 03/04/25 16:00 Resp 19 H 03/04/25 16:00 BP 134/82 03/04/25 16:00 Pulse Ox 96 03/04/25 16:00 O2 Del Method Nasal Cannula 03/04/25 14:10 O2 Flow Rate 3 03/04/25 14:10 FiO2 55 03/01/25 23:13 03/04/25 03/04/25 03/04/25 06:59 14:59 22:59 Intake Total 170 / 2954.167 800 / 800 Output Total 900 / 4400 Balance -730 / -1445.833 800 / 800 Weight last 48 hrs Weight 62.596 kg Weight 62.686 kg Physical Exam 2 Const: COMMON NORMALS: no acute distress and patient oriented x3 Resp: COMMON NORMALS: normal respiratory effort, No retractions and No use of accessory muscles AUSCULTATION: crackles Cardio: COMMON NORMALS: regular rate, regular rhythm, S1 normal heart sound present and S2 normal heart sound present RATE: regular rate RHYTHM: r egular rhythm HEART SOUNDS: S1 normal heart sound present and S2 normal heart sound present GI: COMMON NORMALS: Normal to inspection, nondistended, normoactive bowel sounds present and non-tender Extremity: NARRATIVE EXTREMITY EXAM: 1+ edema Neuro: COMMON NORMALS: patient oriented x3 Psych: COMMON NORMALS: mental status grossly normal Data 03/04/25 04:20 03/04/25 04:20 Micro: Microbiology 03/02/25 11:40 Gram Stain - Final Sputum - Expectorated Sputum Sputum Culture - Final Escherichia coli esbl A&P Assessment and plan 1. Acute hypoxic respiratory failure: 2. Sepsis: 3. Pneumonia: 4. Lung cancer: 5. Anemia: 6. Syncope: 7. Mucus plugging of bronchi: 8. Septic shock: 9. NSTEMI (non-ST elevated myocardial infarction): Plan: Septic shock, resolved - Secondary to pneumonia - Maintain MAP greater than 65 Acute hypoxic respiratory failure - Multifactorial - Secondary to mucous plugging - Secondary to pneumonia - History of lung cancer -COPD exacerbation CT of the lung CT/CT angio chest PE protcl [id number] IMPRESSION: 1. No pulmonary embolism. 2. Mediastinal adenopathy could be reactive. Imaging follow-up is advised. 3. Mucous plugging in the right upper lobe, right lower lobe and left lower lobe. 4. Left lower lobe consolidation. Left upper lobe infiltrate. Multifocal pneumonia can not be excluded. Imaging follow-up until resolution is advised. 5. Bilateral pulmonary branching nodular lesions could represent small airway infection. Imaging follow-up is advised. 6. Mild calcified atherosclerotic changes are seen in the thoracic aorta. Plan -Continue broad-spectrum antibiotic therapy - Vancomycin - Zosyn - Azithromycin -IV steroids - DuoNeb - Budesonide - Chest vest therapy, hypertonic saline, Mucomyst History of laryngeal cancer - Reported coughing episodes in the emergency department - Aspiration precautions - Dysphagia level diet, moderate thickening NSTEMI - Serial kidneys, troponins, telemetry monitoring CONCLUSIONS LV systolic function is normal with EF of 55-60% Grade 1 diastolic dysfunction Mild mitral regurgitation Mild tricuspid regurgitation Mild pulmonary hypertension No comparison studies are available. Syncopal episodes - Cardiac echo as above - Carotid artery ultrasound no findings Acute on chronic anemia, hemoglobin 8.6 - Early evidence of iron deficiency anemia - Protonix, Carafate - Transfused 1 unit PRBC History of stroke Full code Lovenox for DVT prophylaxis currently on hold given acute on chronic anemia, SCDs Sputum cultures growing ESBL E. coli, do CT scan abdomen pelvis, bowel regimen, he has complete abdominal distention, has good bowel sounds, no guarding, rebound, rigidity, IV diuresis PDMP PDMP Reviewed: Not Reviewed Attestations 2 Medical Necessity Statement*: Patient requires hospitalization for ESBL E. coli pneumonia, sepsis, NSTEMI, acute anemia and High MDM includes number and complexity of problems actively addressed during encounter, amount and/or complexity of data reviewed/ordered and described risk of complication, morbidity or mortality of management as documented Diagnoses Acute hypoxic respiratory failure J96.01 Sepsis A41.9 Pneumonia J18.9 Lung cancer C34.90 Anemia D64.9 Syncope R55 Mucus plugging of bronchi T17.500A Septic shock A41.9; R65.21 NSTEMI (non-ST elevated myocardial infarction) I21.4
--- NOTE | 2025-03-04 16:21 | CTR_ITS ---
PROCEDURE INFORMATION: Exam: CT Abdomen And Pelvis Without Contrast Exam date and time: 03/04/2025 9:43 PM Age: 75 years old Clinical indication: Abdominal tenderness; Additional info: Esbl ecoli sputum, abdominal distention TECHNIQUE: Imaging protocol: Computed tomography of the abdomen and pelvis without contrast. Radiation optimization: All CT scans at this facility use at least one of these dose optimization techniques: automated exposure control; mA and/or kV adjustment per patient size (includes targeted exams where dose is matched to clinical indication); or iterative reconstruction. COMPARISON: CT abdomen pelvis w con* [id number] 03/01/2018 2:44 PM RADIATION DOSE METRICS: Total DLP (mGy-cm): 368.3 FINDINGS: Lungs: Lung bases reveal some chronic appearing inflammatory changes to the left lower lobe. Liver: No discrete liver lesions are apparent. Smooth hepatic contour. Gallbladder and biliary ducts: Prior cholecystectomy. Pancreas: No evidence of pancreatitis. No ductal dilation. Spleen: Spleen is within normal limits. Adrenal glands: Adrenal glands are within expected limits. Kidneys and ureters: No renal or ureteral calculi are identified. No hydronephrosis. Stomach and bowel: Large volume of stool throughout the colon, predominantly in the right colon however. No colonic wall thickening however. Small bowel loops are upper normal caliber but no evidence of mechanical obstruction. Appendix: No evidence of appendicitis. Intraperitoneal space: No free air. No significant fluid collection. Vasculature: Calcific plaquing of the aorta with no aneurysm. Lymph nodes: No pathologically enlarged lymph nodes by CT size criteria. Urinary bladder: Unremarkable as visualized. Reproductive: Unremarkable as visualized. Bones/joints: Degenerative changes of the lower lumbar spine but no acute osseous findings. Soft tissues: Unremarkable. CT/CT abdomen pelvis wo con [id number] IMPRESSION: Significant volume of stool in the right colon, but no focal colitis. Examination otherwise within the range of normal.
[2025-03-04] MEDS: lactulose oral liq 20 gm/30 mL UDC PO (16:35)
[2025-03-04] MEDS: FUROsemide 10 mg/mL SDV 4mL 40 MG IVP (16:35)
[2025-03-04 17:18] LABS: Hematocrit 32.6 % (36-47); Hemoglobin 10.80 g/dL (11.27-16.99)
--- NOTE | 2025-03-04 21:31 | PC.NURSE ---
PT ARRIVED TO THE FLOOR FROM ICU AROUND [id number]
[2025-03-05] VITALS (13 sets, daily range): BP systolic 97–149; BP diastolic 61–85; PULSE 78–92; RESP 16–18; TEMP 36.5–36.7; O2SAT 90–95
[2025-03-05] MEDS: pantoprazole 40 mg SDV IVP ×2 (05:13→18:32)
[2025-03-05] MEDS: sucralfate 1 gm/10 mL Oral Liq UDC PO ×4 (05:13→22:53)
[2025-03-05 05:39] LABS: Hematocrit 30.1 % (36-47); Hemoglobin 9.70 g/dL (11.27-16.99); Mean Corpuscular HGB Conc 32.2 g/dL (30-55); Mean Corpuscular Hemoglobin 25.7 pg (27-33); Mean Corpuscular Volume 79.8 fl (85-98); Nucleated Red Blood Cells % 0 %; Platelet Count 359 10^3/cmm (157-399); Red Blood Count 3.77 10^6/uL (3.85-5.65); White Blood Count 16.77 10^3/uL (3.29-11.43)
[2025-03-05 06:04] LABS: Procalcitonin 2.09 ng/mL (0-0.5)
[2025-03-05 06:05] LABS: Alanine Aminotransferase 22 U/L (0-33); Albumin Level 3.7 g/dL (3.5-5.2); Alkaline Phosphatase 79 U/L (35-105); Anion Gap 17.4 (5-19); Aspartate Amino Transferase 16 U/L (0-32); Blood Urea Nitrogen 16 mg/dL (8-23); Calcium 9.4 mg/dL (8.5-10.5); Carbon Dioxide 28 mmol/L (22-29); Chloride 96 mmol/L (98-107); Creatinine Clr Calc Pharmacy 53.4001; Globulin 2.2 g/dL (1.3-4.6); Glucose 96 mg/dL (65-115); Osmolality Calculated 287 mOsm/kg (285-295); Potassium 3.4 mmol/L (3.5-5.1); Sodium 138 mmol/L (136-145); Total Protein 5.9 g/dL (6.6-8.7)
[2025-03-05 06:10] LABS: Lactate (Lactic Acid level) 1.2 mmol/L (0.5-2.2)
[2025-03-05] MEDS: acetylcysteine 200 mg/mL MDV 10 mL 100 MG INHALATION (08:17)
[2025-03-05] MEDS: sodium chloride 3.5% neb 4 mL Neb INHALATION (08:17)
[2025-03-05] MEDS: piperacillin-tazobactam 3.375 GM in sodium chloride 0.9% (plus) 50 ML IV ×2 (09:27→18:31)
[2025-03-05] MEDS: FUROsemide 10 mg/mL SDV 2mL 20 MG IVP (09:28)
[2025-03-05] MEDS: polyethylene glycol 3350 Pkt 17 gm PO (09:35)
--- NOTE | 2025-03-05 12:34 | PICC.NOTE ---
Midline placed to left brachial vein. Referred to vascular access nurse for midline placement due to need for IV antibiotics x 7 days. Risks and benefits discussed and informed consent obtained from pt. Left arm assessed with left brachial vein measuring 3.7 mm, straight, and apparent best choice for placement. Using sterile technique and MST, left brachial vein accessed x 1 stick. Mid-arm circumference measured 10 cm from left AC 26 cm. Trimmed cath 8 cm with 0 cm external length noted. Line secured with stat-lock. Insertion site covered with Biopatch and TSM. Report given to bedside nurse, WILLIAM Downs.
--- NOTE | 2025-03-05 18:10 | P.PN_ITS ---
Subjective 2 Subjective: Patient was seen this morning, currently alert oriented x 3, following all commands, denies any fevers, chills, no cough, discussed her ESBL E. coli sputum cultures, plan on IV antibiotics for 7 days Vitals/I&O/Wt Last Vital Signs Temp 98.0 F 03/05/25 15:28 Pulse 89 03/05/25 15:28 Resp 16 03/05/25 15:28 BP 97/61 03/05/25 15:28 Pulse Ox 93 03/05/25 15:28 O2 Del Method Nasal Cannula 03/05/25 15:28 O2 Flow Rate 0.5 03/05/25 13:49 FiO2 55 03/01/25 23:13 03/05/25 03/05/25 03/05/25 06:59 14:59 22:59 Intake Total 50 / 900 410 / 410 480 / 890 Output Total 300 / 300 Balance 50 / -300 410 / 410 180 / 590 Weight last 48 hrs Weight 59.874 kg Weight 62.596 kg Physical Exam 2 Const: COMMON NORMALS: no acute distress and patient oriented x3 Resp: COMMON NORMALS: normal respiratory effort, No retractions, No use of accessory muscles and clear to auscultation bilaterally AUSCULTATION: clear to auscultation bilaterally Cardio: COMMON NORMALS: regular rate, regular rhythm, S1 normal heart sound present and S2 normal heart sound present RATE: regular rate RHYTHM: r egular rhythm HEART SOUNDS: S1 normal heart sound present and S2 normal heart sound present GI: COMMON NORMALS: Normal to inspection, nondistended, normoactive bowel sounds present and non-tender Extremity: COMMON NORMALS: no pedal edema Neuro: COMMON NORMALS: patient oriented x3 Psych: COMMON NORMALS: mental status grossly normal Data 03/05/25 04:42 03/05/25 04:42 A&P Assessment and plan 1. Acute hypoxic respiratory failure: 2. Sepsis: 3. Pneumonia: 4. Lung cancer: 5. Anemia: 6. Syncope: 7. Mucus plugging of bronchi: 8. Septic shock: 9. NSTEMI (non-ST elevated myocardial infarction): Plan: Septic shock, resolved - Secondary to pneumonia - Maintain MAP greater than 65 Acute hypoxic respiratory failure - Multifactorial - Secondary to mucous plugging - Secondary to pneumonia, ESBL E. coli - History of lung cancer -COPD exacerbation CT of the lung CT/CT angio chest PE protcl [id number] IMPRESSION: 1. No pulmonary embolism. 2. Mediastinal adenopathy could be reactive. Imaging follow-up is advised. 3. Mucous plugging in the right upper lobe, right lower lobe and left lower lobe. 4. Left lower lobe consolidation. Left upper lobe infiltrate. Multifocal pneumonia can not be excluded. Imaging follow-up until resolution is advised. 5. Bilateral pulmonary branching nodular lesions could represent small airway infection. Imaging follow-up is advised. 6. Mild calcified atherosclerotic changes are seen in the thoracic aorta. Plan -Continue broad-spectrum antibiotic therapy - Zosyn - Oral steroids - DuoNeb - Budesonide - Chest vest therapy, hypertonic saline, Mucomyst History of laryngeal cancer - Reported coughing episodes in the emergency department - Aspiration precautions - Dysphagia level diet, moderate thickening NSTEMI - Serial kidneys, troponins, telemetry monitoring CONCLUSIONS LV systolic function is normal with EF of 55-60% Grade 1 diastolic dysfunction Mild mitral regurgitation Mild tricuspid regurgitation Mild pulmonary hypertension No comparison studies are available. Syncopal episodes - Cardiac echo as above - Carotid artery ultrasound no findings Acute on chronic anemia, hemoglobin 9.7 - Early evidence of iron deficiency anemia - Protonix, Carafate - Transfused 1 unit PRBC History of stroke Constipation, bowel regimen Full code Lovenox for DVT prophylaxis currently on hold given acute on chronic anemia, SCDs Patient requires hospitalization for ESBL E. coli pneumonia, requiring IV antibiotics PDMP PDMP Reviewed: Not Reviewed Attestations 2 Medical Necessity Statement*: Patient requires hospitalization for ESBL E. coli pneumonia Diagnoses Acute hypoxic respiratory failure J96.01 Sepsis A41.9 Pneumonia J18.9 Lung cancer C34.90 Anemia D64.9 Syncope R55 Mucus plugging of bronchi T17.500A Septic shock A41.9; R65.21 NSTEMI (non-ST elevated myocardial infarction) I21.4
[2025-03-06] VITALS (9 sets, daily range): BP systolic 99–169; BP diastolic 63–91; PULSE 77–93; RESP 16–17; TEMP 36.6–37; O2SAT 92–97
[2025-03-06] MEDS: piperacillin-tazobactam 3.375 GM in sodium chloride 0.9% (plus) 50 ML IV (03:09)
[2025-03-06 05:42] LABS: Hematocrit 31.2 % (36-47); Hemoglobin 9.90 g/dL (11.27-16.99); Mean Corpuscular HGB Conc 31.7 g/dL (30-55); Mean Corpuscular Hemoglobin 25.6 pg (27-33); Mean Corpuscular Volume 80.8 fl (85-98); Nucleated Red Blood Cells % 0 %; Platelet Count 362 10^3/cmm (157-399); Red Blood Count 3.86 10^6/uL (3.85-5.65); White Blood Count 12.59 10^3/uL (3.29-11.43)
[2025-03-06] MEDS: sucralfate 1 gm/10 mL Oral Liq UDC PO ×2 (05:42→12:18)
[2025-03-06] MEDS: pantoprazole 40 mg SDV IVP (05:43)
[2025-03-06 06:04] LABS: Alanine Aminotransferase 18 U/L (0-33); Albumin Level 3.2 g/dL (3.5-5.2); Alkaline Phosphatase 73 U/L (35-105); Anion Gap 16.5 (5-19); Aspartate Amino Transferase 11 U/L (0-32); Blood Urea Nitrogen 24 mg/dL (8-23); Calcium 9.2 mg/dL (8.5-10.5); Carbon Dioxide 26 mmol/L (22-29); Chloride 95 mmol/L (98-107); Creatinine Clr Calc Pharmacy 53.7588; Globulin 2.7 g/dL (1.3-4.6); Glucose 106 mg/dL (65-115); Osmolality Calculated 282 mOsm/kg (285-295); Potassium 3.5 mmol/L (3.5-5.1); Sodium 134 mmol/L (136-145); Total Protein 5.9 g/dL (6.6-8.7)
[2025-03-06] MEDS: polyethylene glycol 3350 Pkt 17 gm PO (09:28)
--- NOTE | 2025-03-06 10:24 | PC.SOCIAL ---
IMM Updated Updated pt on IMM. No questions voiced. Provided pt a copy. Initialed, dated, & timed a copy & placed in chart.
--- NOTE | 2025-03-06 10:55 | PM.DCS ---
Discharge Providers Date of Admission: 03/02/25 00:34 Date of Discharge: March 06, 2025 Attending Provider at Admission: Rosalie Fischer MD Attending Provider at Discharge: Murray Reyes MD Primary Care Provider: AMISH Leigh Diagnoses at Discharge Discharge Diagnosis 1. Acute hypoxic respiratory failure: 2. Sepsis: 3. Pneumonia: 4. Lung cancer: 5. Anemia: 6. Syncope: 7. Mucus plugging of bronchi: 8. Septic shock: 9. NSTEMI (non-ST elevated myocardial infarction): Reason for Visit Reason for Visit: Shortness of breath Hospital Course Hospital Course This is a 75-year-old female with a past medical history of COPD, lung cancer, partial lobectomy in 2016, history of stroke on aspirin and Plavix, history of laryngeal cancer s/p radiation therapy Patient was admitted to [facility] for acute hypoxic respiratory failure secondary to pneumonia, COPD, mucous plugging, septic shock. Patient was monitored in ICU, received broad-spectrum antibiotic therapy, chest vest therapy, IV steroids, oxygen therapy. Overall patient's clinical condition improved, patient was moved out of ICU, and steroid therapy was de-escalated, sputum cultures growing ESBL E. coli, patient will be discharged on 7 remaining days of IV ertapenem For patient's history of acute on chronic anemia, she required 1 unit PRBC, has early evidence of iron deficiency anemia -Will discharge on Protonix, Carafate -Her Plavix will be held on discharge -Continue aspirin, hemoglobin has been stable, no bloody black stools -Patient was advised to have her primary care provider monitor hemoglobin, if she develops any bloody or black so to go to the emergency room -Follow-up with general surgery 1 month for consideration of EGD colonoscopy For left lower lobe consolidation, bilateral pulmonary branching nodular lesions, follow-up with pulmonary in [address] scan of the chest Septic shock resolved on discharge NSTEMI, EF 55 to 60%, grade 1 diastolic dysfunction, no chest pain complaints For patient's Plavix, she denies any history of cardiac stenting, no history of carotid stenting, no history of peripheral vascular disease stenting, tells me that the Plavix was started after her stroke 2 years ago -Discussed risks and benefits of holding Plavix, she voiced understanding, all questions answered, agrees to proceed -If any strokelike symptoms, please call 911 Physical Exam Const: COMMON NORMALS: no acute distress and patient oriented x3 Resp: COMMON NORMALS: normal respiratory effort, No retractions, No use of accessory muscles and clear to auscultation bilaterally AUSCULTATION: clear to auscultation bilaterally Cardio: COMMON NORMALS: regular rate, regular rhythm, S1 normal heart sound present and S2 normal heart sound present RATE: regular rate RHYTHM: regular rhythm HEART SOUNDS: S1 normal heart sound present and S2 normal heart sound present GI: COMMON NORMALS: Normal to inspection, nondistended, normoactive bowel sounds present and non-tender Extremity: COMMON NORMALS: no pedal edema Neuro: COMMON NORMALS: patient oriented x3 Psych: COMMON NORMALS: mental status grossly normal Discharge Data Studies Completed and Pending Completed Studies During Hospitalization Category Date Time Status CT abdomen pelvis wo con [id number] Routine Cat Scan 03/04/25 16:21 Completed CTA PE [CT angio chest PE protcl [id number]] Routine Cat Scan 03/02/25 02:47 Completed XR chest 1V portable [id number] Routine Exams 03/03/25 07:00 Completed XR chest 1V portable [id number] Stat Exams 03/01/25 22:47 Completed XR chest 1V portable [id number] Stat Exams 03/02/25 02:03 Completed XR wrist LT min 3V* [id number] Stat Exams 03/02/25 00:20 Completed CV carotid duplex BI* [id number] Routine Ultrasound 03/03/25 17:12 Completed CV. echo complete* [id number] Routine Ultrasound 03/03/25 17:12 Completed Pending at discharge Category Date Time Status Antibody Identification Stat Lab 03/03/25 10:09 Results Blood Culture Stat Lab 03/01/25 23:41 Results Leukocyte Reduced RBC Stat Lab 03/03/25 10:09 Results Occult Blood Stool [Immunochemical Fecal OCB] Routine Lab 03/02/25 05:43 Uncollected Occult Blood Stool [Immunochemical Fecal OCB] Routine Lab 03/02/25 08:44 Uncollected Type and Screen Stat Lab 03/03/25 10:09 Results Radiology Impressions Wrist X-Ray 03/02/25 00:20 IMPRESSION: No acute findings. Chest CTA 03/02/25 02:47 IMPRESSION: 1. No pulmonary embolism. 2. Mediastinal adenopathy could be reactive. Imaging follow-up is advised. 3. Mucous plugging in the right upper lobe, right lower lobe and left lower lobe. 4. Left lower lobe consolidation. Left upper lobe infiltrate. Multifocal pneumonia can not be excluded. Imaging follow-up until resolution is advised. 5. Bilateral pulmonary branching nodular lesions could represent small airway infection. Imaging follow-up is advised. 6. Mild calcified atherosclerotic changes are seen in the thoracic aorta. COMMENTS: The presence of pulmonary emphysema on CT is an independent risk factor for lung cancer. In the absence of a history or active diagnosis of lung cancer, it is recommended that this patient with emphysema be evaluated for enrollment in a low dose CT lung cancer screening program. Chest X-Ray 03/03/25 07:00 IMPRESSION: Smaller left basilar infiltrate. Carotid Doppler Study 03/03/25 17:12 IMPRESSION: No carotid arterial stenosis. REFERENCES: SRU CRITERIA. The degree of internal carotid artery stenosis is based on criteria defined by the Society of Radiologists in Ultrasound (SRU). Normal is no stenosis. Mild is less than 50% stenosis. Moderate is 50-69% stenosis. Severe is greater than 69% stenosis to near occlusion. Near occlusion is a markedly narrowed lumen. Total occlusion is no detectable patent lumen. Reference: Carlos Varela, et al. Carotid Artery Stenosis: Anderson-Scale and Doppler US Diagnosis-Society of Radiologists in Ultrasound Consensus Conference. Radiology 2003; 229:340-346. Abdomen/Pelvis CT 03/04/25 16:21 IMPRESSION: Significant volume of stool in the right colon, but no focal colitis. Examination otherwise within the range of normal. Laboratory Results WBC 12.59 10^3/uL (3.29-11.43) H 03/06/25 04:54 RBC 3.86 10^6/uL (3.85-5.65) 03/06/25 04:54 Hgb 9.90 g/dL (11.27-16.99) L 03/06/25 04:54 Hct 31.2 % (36-47) L 03/06/25 04:54 MCV 80.8 fl (85-98) L 03/06/25 04:54 MCH 25.6 pg (27-33) L 03/06/25 04:54 MCHC 31.7 g/dL (30-55) 03/06/25 04:54 RDW 17.1 % (12.1-15.1) H 03/06/25 04:54 Plt Count 362 10^3/cmm (157-399) 03/06/25 04:54 MPV 9.5 fL (7.4-10.4) 03/06/25 04:54 Neut % (Auto) 82.4 % 03/06/25 04:54 Lymph % (Auto) 7.7 % 03/06/25 04:54 [place] % (Auto) 6.7 % 03/06/25 04:54 Eos % (Auto) 0.0 % 03/06/25 04:54 Baso % (Auto) 0.2 % 03/06/25 04:54 Neut # (Auto) 10.38 10^3/uL (1.8-7.7) H 03/06/25 04:54 Lymph # (Auto) 1.0 10^3/uL (0.8-4.8) 03/06/25 04:54 [place] # (Auto) 0.8 10^3/uL (0.2-0.9) 03/06/25 04:54 Eos # (Auto) 0.0 10^3/uL (0.0-0.8) 03/06/25 04:54 Baso # (Auto) 0.0 10^3/uL (0.0-0.1) 03/06/25 04:54 Nucleated RBC % (auto) 0 % 03/06/25 04:54 Nucleated RBCs # 0.0 /100WBC 03/06/25 04:54 D-Dimer 2.14 ug/mLFEU (0-0.59) H 03/01/25 22:51 Specimen Type Arterial 03/01/25 22:48 Sample Site Brachial, right 03/01/25 22:48 ABG pH 7.43 (7.35-7.45) 03/01/25 22:48 ABG pCO2 41.3 mmHg (35-45) 03/01/25 22:48 ABG pO2 56.3 mmHg (80.0-100.0) L 03/01/25 22:48 ABG HCO3 27.4 mmol/L (22-26) H 03/01/25 22:48 ABG Base Excess 2.8 mmol/L (-2.0-2.0) H 03/01/25 22:48 Tyree Test N/a 03/01/25 22:48 Hematocrit 25.7 % (37-47) L 03/01/25 22:48 Hgb O2 Saturation 85.7 % (95-100) L 03/01/25 22:48 Carboxyhemoglobin 1.3 %THgb (0.4-20.1) 03/01/25 22:48 Methemoglobin 1.5 % (0.4-1.5) 03/01/25 22:48 Total Hemoglobin 8.4 g/dL (12-16) L 03/01/25 22:48 O2 Delivery Device Nc 03/01/25 22:48 O2 Liters/Min 6.0 % 03/01/25 22:48 Industrial Controls Technician ID [email or web address] 03/01/25 22:48 Sodium 134 mmol/L (136-145) L 03/06/25 04:54 Potassium 3.5 mmol/L (3.5-5.1) 03/06/25 04:54 Chloride 95 mmol/L (98-107) L 03/06/25 04:54 Carbon Dioxide 26 mmol/L (22-29) 03/06/25 04:54 Anion Gap 16.5 (5-19) 03/06/25 04:54 BUN 24 mg/dL (8-23) H 03/06/25 04:54 Creatinine 0.7 mg/dL (0.5-0.9) 03/06/25 04:54 GFR Calculation Not Reportable 03/06/25 04:54 Glucose 106 mg/dL (65-115) 03/06/25 04:54 Calculated Osmolality 282 mOsm/kg (285-295) L 03/06/25 04:54 Lactic Acid 1.8 mmol/L (0.5-2.2) 03/01/25 22:51 Lactate 1.2 mmol/L (0.5-2.2) 03/05/25 04:42 Calcium 9.2 mg/dL (8.5-10.5) 03/06/25 04:54 Magnesium 2.1 mg/dL (1.7-2.3) 03/03/25 03:51 Iron 8 ug/dL (37-145) L 03/03/25 03:51 TIBC 287 mcg/dl 03/03/25 03:51 % Saturation 2.7 % (20-50) L 03/03/25 03:51 Unsat Iron Binding 279 ug/dL (112-347) 03/03/25 03:51 Ferritin 60 ng/mL (15-150) 03/03/25 03:51 Total Bilirubin 0.3 mg/dL (0.15-1.2) 03/06/25 04:54 AST 11 U/L (0-32) 03/06/25 04:54 ALT 18 U/L (0-33) 03/06/25 04:54 Alkaline Phosphatase 73 U/L (35-105) 03/06/25 04:54 Troponin T Baseline 18 ng/L (0-10) H 03/01/25 22:51 Troponin T 120 Minute 20.48 ng/L (0-10) H 03/02/25 00:35 Delta Troponin T 2.48 ABS# (0-10) 03/02/25 00:35 Troponin T Hi Sens 6Hr 15.44 ng/L (0-10) H 03/02/25 05:05 Troponin T Hi Sens 6Hr Delta -2.56 ng/L (0-12) L 03/02/25 05:05 C-Reactive Protein 38.5 mg/L (0.0-4.9) H 03/05/25 04:42 NT-Pro-B Natriuret Pep 556 pg/mL (0-125) H 03/01/25 22:51 Total Protein 5.9 g/dL (6.6-8.7) L 03/06/25 04:54 Albumin 3.2 g/dL (3.5-5.2) L 03/06/25 04:54 Globulin 2.7 g/dL (1.3-4.6) 03/06/25 04:54 Vitamin B12 840 pg/mL (232-1245) 03/03/25 03:51 Folate 15.0 ng/mL (4.8-37.3) 03/03/25 03:51 Procalcitonin 2.09 ng/mL (0-0.5) H 03/05/25 04:42 Nasal MRSA (PCR) Not detected (Not Detecte) 03/02/25 03:45 Vancomycin Trough 7.3 ug/mL (10-15) L 03/04/25 00:32 Influenza A (PCR) Negative (Negative) 03/01/25 23:26 Influenza Type B (PCR) Negative (Negative) 03/01/25 23:26 RSV (PCR) Negative (Negative) 03/01/25 23:26 SARS-CoV-2 (PCR) Negative (Negative) 03/01/25 23:26 Blood Type A Positive 03/03/25 10:09 Rho(D) Type Rh positive 03/03/25 10:09 Antibody Screen Positive 03/03/25 10:09 Antibody Identification Anti-M Non-Specific Antibody Reation 03/03/25 10:09 Antibody Identification Anti-M Non-Specific Antibody Reation 03/03/25 10:09 Crossmatch See Detail 03/03/25 10:09 Vitals Last Vital Signs Temp 98.6 F 03/06/25 10:38 Pulse 93 03/06/25 10:38 Resp 16 03/06/25 10:38 BP 127/78 03/06/25 10:38 Pulse Ox 93 03/06/25 10:38 O2 Del Method Room Air 03/06/25 10:38 O2 Flow Rate 0.5 03/06/25 08:15 FiO2 55 03/01/25 23:13 Discharge Plan Discharge Patient Disposition: Home Condition: Stable Prescriptions: New amlodipine 5 mg Tablet 5 mg PO DAILY 30 Days Qty: 30 0RF benzonatate 100 mg Capsule 100 mg PO TID PRN (Reason: Cough) 5 Days Qty: 15 0RF aspirin 81 mg Tablet,Delayed Release (Dr/Ec) 81 mg PO DAILY 30 Days Qty: 30 0RF polyethylene glycol 3350 17 gram Powder In Packet 17 g PO DAILY PRN (Reason: constipation) 30 Days Qty: 30 0RF prednisone 20 mg Tablet 40 mg PO DAILY 5 Days Qty: 10 0RF pantoprazole [Protonix] 40 mg tablet,delayed release (DR/EC) 40 mg PO BID 30 Days Qty: 60 0RF sucralfate [Carafate] 1 gram tablet 1 g PO BID 28 Days Qty: 56 0RF Continued atorvastatin 40 mg tablet 40 mg PO BEDTIME albuterol sulfate 2.5 mg /3 mL (0.083 %) solution for nebulization 2.5 mg continuous nebulization Q6H PRN (Reason: Shortness Of Breath) sertraline 100 mg tablet 100 mg PO DAILY levothyroxine 75 mcg tablet 75 mcg PO QAM ketoconazole 2 % cream 1 applic TOPICAL DAILY Dulera 200-5 mcg/actuation HFA aerosol inhaler 2 puff INHALATION BID Discontinued clopidogrel 75 mg tablet 75 mg PO DAILY omeprazole 20 mg capsule,delayed release(DR/EC) 20 mg PO DAILY Other Ambulatory Orders: Miscellaneous Procedure (Order) Location: None Selected Ordered By: Murray Reyes Referrals: [facility] [Outside] Bucky Fischer MD [Physician, General Surgery] - 1 week Referral Note: egd and colonoscopy Vishnu Zaldivar MD [Physician, Interventional Pulmonology] - 1 week David Walker [Referring, [facility]] - 03/11/25 10:20 am Discharge Diet: Cardiac Discharge Activity: Resume usual activity Patient Instructions: Opioid Safety, Patient Portal & Joaquín Instructions Activity Restrictions/Additional Instructions: - Follow-up with your primary care provider 1 week - If any fevers, chills please go to emergency room - Please take antibiotics ertapenem 1 g IV every 24 hours for 7 days - Remove midline thereafter - Please ambulate with care - Albuterol as needed for shortness of breath - If you have any chest pain or palpitations go to the emergency room - For acute anemia please continue to hold Plavix until you see general surgery for EGD and colonoscopy - Please continue Protonix and Carafate - If you notice bloody or black stools please go to the emergency room - Continue aspirin 81 mg daily -Please hold Plavix - Follow-up with pulmonary repeat CAT scan in 1 month Discharge Attestations Time Spent in Discharge Care*: greater than 30 min Quality Metrics Clinical Quality Measures [ No reported AMI, CVA or VTE this stay] Coding Level of Care Code 16024 Total time (in minutes) for Discharge: 45 Diagnoses Acute hypoxic respiratory failure J96.01 Sepsis A41.9 Pneumonia J18.9 Lung cancer C34.90 Anemia D64.9 Syncope R55 Mucus plugging of bronchi T17.500A Septic shock A41.9; R65.21 NSTEMI (non-ST elevated myocardial infarction) I21.4
--- NOTE | 2025-03-06 13:02 | PC.NURSE ---
Discussed discharge with patient and family member. Read Pneumonia stoplight to patient, new medications, continued medications, stopped medications and follow up appointments with phone numbers listed. Infusion center number is on paper as well since patient going home with a PICC for IV antibiotics. Patient verbalized understanding. Gave patient a mask to wear upon leaving the room.
== END 2025-03-06 13:05 | disposition home or self-care (01) | DRG 871 ==
LOC: ER 03-02 00:29 → ICU 03-02 00:35 → MEDSURG 03-04 21:22
PROVIDERS: Admitting Provider Student in an Organized Health Care Education/Training Program; Emergency Provider Emergency Medicine; PCP Nurse Practitioner Family; Visit Provider Family Medicine
DX: A41.9 Sepsis, unspecified organism (principal); I21.4 Non-ST elevation (NSTEMI) myocardial infarction; J18.9 Pneumonia, unspecified organism; R65.21 Severe sepsis with septic shock; J96.01 Acute respiratory failure with hypoxia; J44.1 Chronic obstructive pulmonary disease with (acute) exacerbation; J44.0 Chronic obstructive pulmonary disease with (acute) lower respiratory infection; Z16.12 Extended spectrum beta lactamase (ESBL) resistance; C34.90 Malignant neoplasm of unspecified part of unspecified bronchus or lung; Z85.41 Personal history of malignant neoplasm of cervix uteri; Z85.21 Personal history of malignant neoplasm of larynx; D50.9 Iron deficiency anemia, unspecified; R55 Syncope and collapse; T17.990A Other foreign object in respiratory tract, part unspecified in causing asphyxiation, initial encounter; Z90.2 Acquired absence of lung [part of]; Z86.73 Personal history of transient ischemic attack (TIA), and cerebral infarction without residual deficits; Z79.82 Long term (current) use of aspirin; R13.10 Dysphagia, unspecified; Z87.891 Personal history of nicotine dependence; F40.240 Claustrophobia; F41.9 Anxiety disorder, unspecified; Z87.01 Personal history of pneumonia (recurrent); B96.20 Unspecified Escherichia coli [E. coli] as the cause of diseases classified elsewhere; Z92.3 Personal history of irradiation
CPT/HCPCS: 36415; 36430; 36569; 36600; 71045; 71275; 73110; 74176; 80053; 80202; 80503; 82607; 82728; 82746; 82805; 83540; 83550; 83605; 83735; 83880; 84145; 84484; 85014; 85018; 85025; 85378; 86140; 86403; 86850; 86870; 86900; 86920; 87040; 87070; 87077; 87186; 87205; 87449; 87637; 92526; 92610; 93005; 93306; 93880; 94640; 94660; 94669; 96365; 96366; 96367; 96372; 96374; 96376; 97161; 99291; C1751; J1200; J1650; J1938; J2470; J2543; J2919; J3373; J7030; J7050; J7512; J7608; J7626; J9999; P9016; Q0144

== ENCOUNTER 2025-03-13 15:37 | Oncology outpatient (recurring) (ONCR) | payer OTHER, MEDICAID, SELFPAY | END 2025-03-21 23:59 | disposition home or self-care (01) | PROVIDERS: PCP Nurse Practitioner Family; Visit Provider Internal Medicine | DX: Z53.9 Procedure and treatment not carried out, unspecified reason (principal) ==

== ENCOUNTER → 2025-03-19 10:32 | Outpatient (BNVA) | payer OTHER, MEDICAID, SELFPAY | PROVIDERS: PCP Nurse Practitioner Family; Visit Provider Surgery | DX: R91.8 Other nonspecific abnormal finding of lung field (principal); K92.2 Gastrointestinal hemorrhage, unspecified; D64.9 Anemia, unspecified; J18.9 Pneumonia, unspecified organism; J44.9 Chronic obstructive pulmonary disease, unspecified; Z87.891 Personal history of nicotine dependence; J15.5 Pneumonia due to Escherichia coli; I10 Essential (primary) hypertension; E11.9 Type 2 diabetes mellitus without complications; Z79.4 Long term (current) use of insulin; F41.8 Other specified anxiety disorders; E03.9 Hypothyroidism, unspecified | CPT/HCPCS: 99203; 99204 ==

== ENCOUNTER → 2025-03-20 15:45 | Outpatient (BNVA) | payer MEDICARE, MEDICAID, SELFPAY | PROVIDERS: PCP Nurse Practitioner Family; Visit Provider Surgery | DX: K92.2 Gastrointestinal hemorrhage, unspecified (principal) | CPT/HCPCS: 82274 ==

== ENCOUNTER 2025-04-03 09:55 | Outpatient (CLI) | payer OTHER, MEDICAID, SELFPAY ==
[2025-04-03 10:13] VITALS: PULSE 86; RESP 18; O2SAT 93
== END 2025-04-03 09:56 | disposition home or self-care (01) ==
LOC: RT 09:59
PROVIDERS: PCP Family Medicine; Visit Provider Internal Medicine
DX: R91.8 Other nonspecific abnormal finding of lung field (principal)
CPT/HCPCS: 94060; 94729; J7613

== ENCOUNTER 2025-04-19 14:15 | Oncology outpatient (recurring) (ONCR) | payer OTHER, MEDICAID, SELFPAY ==
--- NOTE | 2025-04-12 09:30 | PETR_ITS ---
PROCEDURE INFORMATION: Exam: PET/CT Skull Base to Mid-thigh Exam date and time: 04/12/2025 10:23 AM Age: 75 years old Clinical indication: New pulmonary nodule in the right lung; Prior surgery; Surgery date: 6+ months; HX of lung lung cancer after right upper and middle lobectomy in 2016. History of laryngeal cancer LABS AND CLINICAL REPORTS: Glucose: 130 mg/dl Treatment strategy for malignancy (PET staging): Initial Staging (PI) TECHNIQUE: Imaging protocol: Following at least four-hour fasting and following the injection of radiopharmaceutical, low dose CT images were obtained. Then, PET images were obtained. Attenuation corrected images were constructed using the CT scan. Fused images of PET and CT were reviewed. The standardized uptake values (SUV) reported below are maximum values within a region of interest, expressed in gm/ml. Exam includes orbital meatal line to mid-thigh. SUV normalization method: BodyWeight Radiopharmaceutical: 12.1 mCi F-18 FDG (Fluorodeoxyglucose), IV. Time of imaging post radiopharmaceutical administration: 52 minutes Injection site: LEFT AC COMPARISON: CTA chest 03/02/2025, CT abdomen pelvis wo con [id number] 03/04/2025 FINDINGS: Brain: On the nondedicated limited brain images there is no abnormal distribution of the radiotracer in the miramontes and white matter. Pharynx: Normal distribution of the radiotracer in nasopharyngeal, and oropharyngeal structures. Larynx: Normal distribution of the radiotracer in laryngeal structures. Lungs, pleura and trachea: Status post resection of the right upper lobe and middle lobe. There are small FDG avid nodules in both lungs in the areas previously involved with pneumonia documented on 03/02/2025 that may be malignant or benign in nature. This includes 0.8 cm solid nodule in the upper aspect of the residual right lung measuring 7.6 SUV, 0.6 cm solid nodule in the left upper lobe measuring 5.2 SUV, 0.7 cm nodule in the left lower lobe measuring 4.6 SUV, peripheral posterior 0.7 cm ground-glass opacity nodule in the left lower lobe measuring 3.[address] T opacities in both lungs representing pneumonia documented on 03/02/2025 have nearly completely resolved with mild residual perihilar opacity in the left lower lobe measuring 2.6 SUV. No pleural effusion. Heart: Normal physiologic uptake. There is no cardiomegaly. There is no pericardial effusion. Mediastinal space: See below in lymph nodes . Liver: Normal size without abnormal radiotracer uptake. Gallbladder and biliary ducts: No abnormal uptake. Status post cholecystectomy. Pancreas: Normal distribution of radiotracer. Spleen: Normal size without abnormal radiotracer uptake. Adrenal glands: No abnormal uptake. No nodules. Kidneys and ureters: Normal physiologic uptake. No hydronephrosis. Stomach and bowel: No abnormal uptake. Vasculature: No abnormal uptake. No aortic aneurysm. Lymph nodes: 1.3 x 0.8 cm left supraclavicular lymph node measures 25.7 SUV. Subcentimeter left upper paratracheal lymph node measures 5.2 SUV. 1.4 x 1 cm left paratracheal/aortopulmonary window lymph node measures 13.4 SUV. There is sequela of exposure to granulomatous disease with calcified granulomas in the right hilar lymph nodes. No FDG avid lymphadenopathy in the head, abdomen, pelvis, and extremities. Skeleton: No abnormal uptake in the visualized axial and appendicular skeleton. Soft tissues: No abnormal uptake in the visualized head, neck, chest, abdomen, pelvis, and extremities. METRICS: Mediastinal blood pool maximal uptake is 2.5 SUV. Liver maximal uptake is 3.4 SUV. PET/PET skull to thigh INIT [id number] IMPRESSION: 1. There are small FDG avid bilateral lung nodules with the highest uptake of 7.6 SUV in the right lung. Malignancy can not be excluded based on degree of uptake. All nodules are located in the areas involved with diffuse bilateral pneumonia on the prior exam on 03/02/2025. 2. High degree of uptake within small left supraclavicular lymph node (25.7 SUV) and in the left mediastinal lymph nodes (up to 13.4 SUV) is concerning for malignancy.
== END 2025-04-22 08:03 | disposition home or self-care (01) ==
LOC: RAD 04-20 → ONCMED 04-23 07:45
PROVIDERS: PCP Nurse Practitioner Family; Visit Provider Internal Medicine
DX: Z53.9 Procedure and treatment not carried out, unspecified reason (principal)
CPT/HCPCS: 78815; A9552

== ENCOUNTER 2025-04-23 08:00 | Oncology outpatient (recurring) (ONCR) | payer OTHER, MEDICAID, SELFPAY | END 2025-05-21 23:59 | disposition home or self-care (01) | LOC: ONCMED 05-02 10:34 | PROVIDERS: PCP Nurse Practitioner Family; Visit Provider Internal Medicine | DX: R91.8 Other nonspecific abnormal finding of lung field (principal); R59.0 Localized enlarged lymph nodes; Z87.891 Personal history of nicotine dependence; Z85.118 Personal history of other malignant neoplasm of bronchus and lung; Z85.89 Personal history of malignant neoplasm of other organs and systems | CPT/HCPCS: 99215; Q3014 ==

== ENCOUNTER 2025-05-06 18:11 | Inpatient (IN) | payer OTHER, MEDICAID, SELFPAY ==
--- OUTSIDE RECORDS SUMMARY | 2025-05-02 07:02 | XMS_ITS | Encounter Summary ---
Author Organization [facility] Healthcare Address [address] [place] [address] Care Team Providers Care Client Services Associate Name Role Phone Lee Curtis MD Unavailable [phone] David Walker MD Primary Care Provider [phone] Reason for Referral * MRI/CAT/PET Scan (Routine) - Closed Specialty Diagnoses / Procedures Referred By Sveta t Referred To Contact Radiology Diagnoses Squamous cell carcinoma of epiglottis (HCC) Procedures CT Chest W Contrast Derrek Sancehz MD [address] [address] Phone: tel: fax: [address] [phone] Referral ID Status Reason Start Date Expiration Date Visits Re quested Visits Authorized [id number] Closed 11/01/2024 12/01/2025 1 1 * MRI/CAT/PET Scan (Routine) - Closed Specialty Diagnoses / Procedures Referred By Contac t Referred To Contact Radiology Diagnoses Squamous cell carcinoma of epiglottis (HCC) Procedures CT Neck Soft Tissue W Contrast Derrek Sanchez MD [address] [employer] [address] [address] Phone: tel: fax: [address] [phone] Referral ID Status Reason Start Date Expiration Date Visits Re quested Visits Authorized [id number] Closed 11/01/2024 12/01/2025 1 1 Reason for Visit * MRI/CAT/PET Scan (Routine) - Closed Specialty Diagnoses / Procedures Referred By Contac t Referred To Contact Radiology Diagnoses Squamous cell carcinoma of epiglottis (HCC) Procedures CT Chest W Contrast Derrek Sanchez MD [address] [place] [address] [address] [place] [address] Phone: tel: fax: [address] [phone] Referral ID Status Reason Start Date Expiration Date Visits Re quested Visits Authorized [id number] Closed 11/01/2024 12/01/2025 1 1 Encounter Details Date Type Department Care Team (Latest Contact Info) Description 05/02/2025 7:02 AM CDT - 05/02/2025 11:59 PM CDT Hospital Encounter [facility] [phone] Squamous cell carcinoma of epiglottis (HCC) Discharge Disposition: Discharge to home or self care Social History Tobacco Use Types Packs/Day Years Used Date Smoking Tobacco: Former Cigarettes Q uit: 12/2015 Smokeless Tobacco: Former Alcohol Use Standard Drinks/Week Comments Not Currently 0 (1 standard drink = 0.6 oz pur e alcohol) Comments Unknown Sex and Gender Information Value Date Recorded Sex Assigned at Not on file Legal Sex Female 1:53 PM CDT Gender Identity Not on file Sexual Orientation Not on file documented as of this encounter Medications at Time of Discharge albuterol HFA (PROVENTIL HFA,VENTOLIN HFA,PROAIR HFA) 90 mcg/actuation inhaler Inhale 2 puffs every 6 (six) hours as needed 11/17/2021 ascorbic acid (VITAMIN C) 1,000 mg tablet Take 1,000 mg by mouth daily aspirin 81 mg enteric coated tablet Take 81 mg by mouth daily 11/26/2021 atorvastatin (LIPITOR) 40 mg tablet Take 1 tablet (40 mg total) by mouth nightly 02/19/2022 clopidogreL (PLAVIX) 75 mg tablet Take 1 tablet (75 mg total) by mouth daily 02/19/2022 levothyroxine (SYNTHROID) 50 mcg tablet TAKE 1 TABLET BY MOUTH ONCE DAILY IN THE MORNING (DOSE DECREASE) 01/10/2022 levothyroxine (SYNTHROID) 75 mcg tablet Take 1 tablet (75 mcg total) by mouth adobe flex developer before breakfast omeprazole (PriLOSEC) 20 mg capsule Take 1 capsule (20 mg total) by mouth daily 12/30/2020 oxyCODONE-acetam inophen (PERCOCET) 7.5-325 mg per tabletIndication s:Pain as needed 03/09/2018 polyethylene glycol (MIRALAX) 17 gram/dose powder Take 17 g by mouth 2 (two) times a day as needed 11/26/2021 predniSONE (DELTASONE) 50 mg tabletIndication s:Squamous cell carcinoma of epiglottis (HCC),Allergy, subsequent encounter Take orally 19 hrs before, then 13 hrs before then 7 hours before then [address] 4 tablet 04/23/2025 sertraline (ZOLOFT) 50 mg tablet Take 1 tablet (50 mg total) by mouth daily turmeric root extract 500 mg capsule Take by mouth documented as of this encounter Discharge Disposition Disposition Code Departure Means Destination Discharge to home or self care documented in this encounter Plan of Treatment Not on file documented as of this encounter Procedures Procedure Name Priority Date/Time Associated Diagnosis Comments CT CHEST W CONTRAST Schedule Routine, Read Routine (OP Routine) 05/02/2025 8:05 AM CDT Squamous cell carcinoma of epiglottis (HCC) CT SOFT TISSUE NECK W CONTRAST Schedule Routine, Read Routine (OP Routine) 05/02/2025 8:05 AM CDT Squamous cell carcinoma of epiglottis (HCC) documented in this encounter Results * CT Chest W Contrast (05/02/2025 8:05 AM CDT) Anatomical Region Laterality Modality Body N/A Computed Tomogra phy 05/02/2025 9:10 AM CDT Impressions 05/02/2025 7:46 PM CDT IMPRESSION: 1. Stable to slight interval increase in size of known pulmonary nodules as well as development of multiple new solid and groundglass pulmonary nodules which are indeterminant. Differential considerations include chemotherapy-related organizing pneumonia, infection, or worsening disease. Attention on short-term interval follow-up is recommended. 2. Stable postsurgical changes of the right upper and middle lobectomy, as well as stable posttreatment changes of the left lower lobe. 3. Indeterminate prominent left supraclavicular lymph node. Recommend attention to this area on follow up imaging. Dictated by: Hong Wilkins M.D. The radiology attending physician has personally reviewed this study, and had reviewed and/or edited this written report and agrees with it. Electronically signed by: Abhijit Muller M.D. Narrative 05/02/2025 7:46 PM CDT EXAMINATION: Computed tomography of the chest with intravenous contrast HISTORY: 74-year-old female with history of squamous cell carcinoma of the epiglottis, right middle lung, and adenocarcinoma of the right upper lung status post right upper and middle lobectomies. Status post radiation and chemotherapy. TECHNIQUE: Transaxial computed tomographic images of the chest were obtained with intravenous contrast according to the standard protocol after the uneventful administration of 115 mL Opti-Ray 350 intravenous contrast. COMPARISON: CT 11/01/2024 FINDINGS: In the imaged thyroid is atrophic. There is a prominent 8 mm left supraclavicular lymph node (series 3, image 11), which is new from prior. Stable left paratracheal 8 mm lymph node (series 3, image 51). No suspicious axillary or hilar lymphadenopathy. A small amount of debris is present within the trachea. The trachea, right main stem bronchus, and left mainstem bronchus are normal in caliber without endobronchial obstructing lesion. There is mild mucous plugging in the trachea. Postsurgical changes of a right upper and middle lobe lobectomy. There is a stable right lower lobe lung nodule which measures 9 mm x 6 mm (series 4, image 55), previously measuring the same. However, this nodule now has some surrounding groundglass opacities. There is interval enlargement of another right lower lobe nodule which now measures 5 mm (series 4, image 70), previously measuring 3 mm. There is a stable 5 mm left lower lobe nodule (series 4, image 122). There is interval enlargement of another 7 mm left lower lobe nodule (series 4, image 105), which previously measured 5 mm. There is a new 5 mm left apex lung nodule and 3 mm right upper lobe lung nodule. There are several new groundglass nodules which are new from prior. For example, there is a 6 mm groundglass nodule in the right lower lobe (series 4, image 70). There is a more ill distinct hazy groundglass opacity in the right lower lobe measuring 2 cm which is new from prior. Moderate centrilobular emphysema with unchanged left apical scarring. Unchanged appearance of the postradiation changes in the left lower lobe with architectural distortion. No pleural effusion or pneumothorax. The heart is normal in size. No pericardial effusion. The thoracic aorta is normal in caliber with moderate to severe atherosclerosis. The main pulmonary artery is normal in caliber. The esophagus is mildly patulous and stable from prior. The visualized upper abdomen demonstrates no acute abnormality. The patient is status post cholecystectomy. Calcified granulomas in the liver and spleen. No acute soft tissue abnormalities. No aggressive osseous lesions. Right thoracotomy defect. Procedure Note Abhijit Muller MD PhD - 05/02/2025 EXAMINATION: Computed tomography of the chest with intravenous contrast HISTORY: 74-year-old female with history of squamous cell carcinoma of the epiglottis, right middle lung, and adenocarcinoma of the right upper lung status post right upper and middle lobectomies. Status post radiation and chemotherapy. TECHNIQUE: Transaxial computed tomographic images of the chest were obtained with intravenous contrast according to the standard protocol after the uneventful administration of 115 mL Opti-Ray 350 intravenous contrast. COMPARISON: CT 11/01/2024 FINDINGS: In the imaged thyroid is atrophic. There is a prominent 8 mm left supraclavicular lymph node (series 3, image 11), which is new from prior. Stable left paratracheal 8 mm lymph node (series 3, image 51). No suspicious axillary or hilar lymphadenopathy. A small amount of debris is present within the trachea. The trachea, right main stem bronchus, and left mainstem bronchus are normal in caliber without endobronchial obstructing lesion. There is mild mucous plugging in the trachea. Postsurgical changes of a right upper and middle lobe lobectomy. There is a stable right lower lobe lung nodule which measures 9 mm x 6 mm (series 4, image 55), previously measuring the same. However, this nodule now has some surrounding groundglass opacities. There is interval enlargement of another right lower lobe nodule which now measures 5 mm (series 4, image 70), previously measuring 3 mm. There is a stable 5 mm left lower lobe nodule (series 4, image 122). There is interval enlargement of another 7 mm left lower lobe nodule (series 4, image 105), which previously measured 5 mm. There is a new 5 mm left apex lung nodule and 3 mm right upper lobe lung nodule. There are several new groundglass nodules which are new from prior. For example, there is a 6 mm groundglass nodule in the right lower lobe (series 4, image 70). There is a more ill distinct hazy groundglass opacity in the right lower lobe measuring 2 cm which is new from prior. Moderate centrilobular emphysema with unchanged left apical scarring. Unchanged appearance of the postradiation changes in the left lower lobe with architectural distortion. No pleural effusion or pneumothorax. The heart is normal in size. No pericardial effusion. The thoracic aorta is normal in caliber with moderate to severe atherosclerosis. The main pulmonary artery is normal in caliber. The esophagus is mildly patulous and stable from prior. The visualized upper abdomen demonstrates no acute abnormality. The patient is status post cholecystectomy. Calcified granulomas in the liver and spleen. No acute soft tissue abnormalities. No aggressive osseous lesions. Right thoracotomy defect. IMPRESSION: IMPRESSION: 1. Stable to slight interval increase in size of known pulmonary nodules as well as development of multiple new solid and groundglass pulmonary nodules which are indeterminant. Differential considerations include chemotherapy-related organizing pneumonia, infection, or worsening disease. Attention on short-term interval follow-up is recommended. 2. Stable postsurgical changes of the right upper and middle lobectomy, as well as stable posttreatment changes of the left lower lobe. 3. Indeterminate prominent left supraclavicular lymph node. Recommend attention to this area on follow up imaging. Dictated by: Hong Wilkins M.D. The radiology attending physician has personally reviewed this study, and had reviewed and/or edited this written report and agrees with it. Electronically signed by: Abhijit Muller M.D. us Derrek Sanchez MD IMG CT PROCEDURES Final Res ult * CT Neck Soft Tissue W Contrast (05/02/2025 8:05 AM CDT) Anatomical Region Laterality Modality Head and Neck N/A Computed Tomogra phy 05/02/2025 10:4 0 AM CDT Impressions 05/02/2025 10:40 AM CDT 1. Unchanged post treatment changes in the neck without evidence of local recurrence. 2. Unchanged prominent left level four lymph node, which was hypermetabolic on recent PET/CT. No new cervical lymphadenopathy. Dictated by: Prasad Lopez MD The radiology attending physician has personally reviewed this study, and had reviewed and/or edited this written report and agrees with it. Electronically signed by: Ericka Armstrong M.D. 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 Patient is currently undergoing surveillance. TECHNIQUE: CT of the neck was performed according to the standard protocol with intravenous contrast. Contrast information: 115 mL Optiray-350 IV COMPARISON: CT 11/01/2024, PET/CT 04/12/2025 FINDINGS: No pathologically enlarged cervical lymph nodes. Unchanged prominent left level four lymph node (2/79) with compared with 04/18/2025 PET/CT. Unchanged diffuse submucosal edema in the pharynx and larynx in keeping with postradiation change. No new masslike enhancement. None are pathologically enlarged or abnormally enhancing. The muscles of the neck are normal. Vessels of the neck demonstrate normal course and caliber. Fascial planes are preserved and the deep spaces of the neck are normal. The visualized airway is widely patent. Thyroid gland atrophy, unchanged. The base of the skull and the temporal bones are normal. Limited views of the brain including the cerebellum and brainstem are normal. The visualized portions of the orbits are normal. Multilevel degenerative changes of the cervical spine with severe spinal canal and neural foraminal stenosis at multiple levels. Findings in the chest including pulmonary nodules are characterized separately on dedicated chest CT. 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 Patient is currently undergoing surveillance. TECHNIQUE: CT of the neck was performed according to the standard protocol with intravenous contrast. Contrast information: 115 mL Optiray-350 IV COMPARISON: CT 11/01/2024, PET/CT 04/12/2025 FINDINGS: No pathologically enlarged cervical lymph nodes. Unchanged prominent left level four lymph node (2/79) with compared with 04/18/2025 PET/CT. Unchanged diffuse submucosal edema in the pharynx and larynx in keeping with postradiation change. No new masslike enhancement. None are pathologically enlarged or abnormally enhancing. The muscles of the neck are normal. Vessels of the neck demonstrate normal course and caliber. Fascial planes are preserved and the deep spaces of the neck are normal. The visualized airway is widely patent. Thyroid gland atrophy, unchanged. The base of the skull and the temporal bones are normal. Limited views of the brain including the cerebellum and brainstem are normal. The visualized portions of the orbits are normal. Multilevel degenerative changes of the cervical spine with severe spinal canal and neural foraminal stenosis at multiple levels. Findings in the chest including pulmonary nodules are characterized separately on dedicated chest CT. IMPRESSION: 1. Unchanged post treatment changes in the neck without evidence of local recurrence. 2. Unchanged prominent left level four lymph node, which was hypermetabolic on recent PET/CT. No new cervical lymphadenopathy. Dictated by: Prasad Lopez MD The radiology attending physician has personally reviewed this study, and had reviewed and/or edited this written report and agrees with it. Electronically signed by: Ericka Armstrong M.D. Derrek Sanchez MD [facility] [place] PROCEDURES Final Res ult documented in this encounter Visit Diagnoses Diagnosis Squamous cell carcinoma of epiglottis (HCC) documented in this encounter Administered Medications Inactive Administered Medications - up to 3 most recent administrations Medication Order MAR Action Action Date Dose Rate Site ioversoL (OPTIRAY 350) syringe 125 mL 125 mL, intravenous, Once in imaging, contrast, Starting on Gayatri 05/02/25 at 0752, For 1 dose Contrast Given 05/02/2025 8:06 AM CDT 115 mL documented in this encounter Orders Medications Ordered That Pradeep ht Not Have Been Administered Count Last Ordered Date First Ordered Date ioversoL (OPTIRAY 350) syringe 125 mL 1 06/2025 documented in this encounter Care Teams Client Services Associate Relationship Specialty Start Date End Date David Walker MD [address] [facility] [facility] [address] [place] [address] PCP - General 06/19/20 Lee Curtis MD Radiation Oncologist Radiation Oncology 03/06/18 documented as of this encounter
--- OUTSIDE RECORDS SUMMARY | 2025-05-02 09:45 | XMS_ITS | Encounter Summary ---
Author Organization [facility] Address [address] [place] [address] Phone Care Team Providers Care Senior Web Designer Name Role Phone Lee Curtis MD Unavailable [phone] David Walker MD Primary Care Provider [phone] Reason for Referral * Diagnostic Imaging (Routine) - Pending Review Specialty Diagnoses / Procedures Referred By Contac t Referred To Contact Radiology Diagnoses Squamous cell carcinoma of epiglottis (HCC) Procedures US Guided Biopsy Lymph Node Superficial Left Consult to Radiology for Biopsy Derrek Sanchez MD [address] [facility] [address] [place] [address] Phone: tel: fax: [address] [address] Referral ID Status Reason Start Date Expiration Date V isits Requested Visits Authorized [id number] Pending Review 05/02/2025 06/01/2026 1 1 Encounter Details Date Type Department Care Team (Late st Contact Info) Description 05/02/2025 9:45 AM CDT Office Visit [facility] Medicine Oncology [address] [facility] [address] [place] [id number] Derrek Sanchez MD [address] [facility] [address] [place] [address] Squamous cell carcinoma of epiglottis (HCC) (Primary Dx) Social History Tobacco Use Types [...] Sign Reading Time Taken Comments Blood Pressure 168/83 05/02/2025 8:54 AM CDT 2nd B/P reading 174/107 Pulse 108 05/02/2025 8:54 AM CDT Temperature 36.8 C (98.2 F) 05/02/2025 8:54 AM CDT Respiratory Rate 18 05/02/2025 8:54 AM CDT Oxygen Saturation 94% 05/02/2025 8:5 4 AM CDT Inhaled Oxygen Concentration - - Weight 58.8 kg (129 lb 9.6 oz) 05/02/2025 8:54 AM CDT Height 159.5 cm (5' 2.8 ) 05/02/2025 8: 54 AM CDT Body Mass Index 23.11 05/02/2025 8:54 AM CDT documented in this encounter Progress Notes * Derrek Sanchez MD - 05/02/2025 9:45 AM CDT Teri Graham 1950 05/02/2025 DIAGNOSES: 1. 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 2. 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 3. Adenocarcinoma of the right upper lobe of the lung. 4. Anxiety. 5. Arthritis. PROTOCOLS: None. CHEMOTHERAPY HISTORY: Cisplatin. ONCOLOGIC HISTORY: 1. The patient underwent right thoracotomy and right upper and middle lobe lobectomies on 04/12/2016 with pathology demonstrating a 2.1 cm adenocarcinoma of the right upper lobe of the lung and a 1.3cm squamous cell carcinoma of the right middle lobe of the lung. 2. Surveillance imaging with a CT scan of the chest on 04/04/2017 showed a new 2.6 cm left lower lobe lesion. It does not appear as if it was biopsied but was treated with definitive radiation therapy with a total of 5000 cGy between 06/13/2017 and 06/17/2017. 3. A staging PET scan prior to definitive radiation to the lung lesion incidentally noted increaseduptake in the vallecula/epiglottis with hypermetabolic left-sided cervical lymphadenopathy. A neck CT on 06/15/2017 showed a soft tissue mass along the right aspect of the epiglottis with enlarged bilateral centrally necrotic level IIA lymph nodes. A biopsy of a right level II lymph node confirmed metastatic squamous cell carcinoma, p16 negative. 4. The patient began definitive radiation with high-dose bolus cisplatin on 07/12/2017. The patienthad cycle number 2 of high-dose bolus cisplatin on August 04 and cycle number 3 of high-dose bolus cisplatin on 08/24/2017. INTERVAL HISTORY: Teri Graham was in the ER last month with a syncopal episode (recurrent episodes of this). She wasadmitted in December with pneumonia and then again in February. REVIEW OF SYSTEMS: A 12-system review of systems was performed and is negative except for that mentioned in interval history. Otherwise all 12 systems are negative. Vitals BP 168/83 (BP Location: Right arm) Pulse 108 Temp 36.8 ??C (98.2 ??F) (Oral) Resp 18 Ht 159.5 cm (5' 2.8 ) Wt 58.8 kg (129 lb 9.6 oz) SpO2 94% BMI 23.11 kg/m?? PHYSICAL EXAMINATION: Performance Status: ECOG 0 General: Alert and oriented x3, in no apparent distress; thin HEENT: Normocephalic, atraumatic. Pupils equal, round, reactive to light. Extraocular motions intact. Oropharynx clear. Moist mucous membranes. Neck: Supple, without lymphadenopathy. Lungs: Clear to auscultation bilaterally. No crackles or wheezes. Heart: Regular rate and rhythm. No murmurs, rubs, or gallops. Abdomen: Soft, nontender, nondistended. Bowel sounds are positive. Extremities: No clubbing, cyanosis, or edema. Skin: With no rashes. Neuro: Nonfocal. RADIOLOGY: 04/12/25 PET scan IMPRESSION: 1. Multiple, moderately hypermetabolic pulmonary nodules bilaterally, suspicious for malignancy such as pulmonary adenocarcinoma or squamous cell carcinoma. Hypermetabolic mediastinal and left paratracheal lymph nodes, most consistent with barndy metastatic disease. 2. Markedly hypermetabolic left level 4 lymph node, most consistent with a brandy metastasis of unclear origin given pulmonary findings and history of epiglottic squamous cell carcinoma. This lymph node is amenable to biopsy for further characterization. The findings, conclusions and recommendations within this report do not replace the initial findings, conclusions and recommendations made at the facility where the study was performed based upon the imaging and clinical condition at that time. Comparison with the prior report and clinical history is necessary. The provided images may or may not represent the lytton source data set and thus may contain changes that may lower the accuracy of this second-opinion interpretation. CT neck/ chest 05/02/25 IMPRESSION: 1. Overall increase in size of known pulmonary nodules, with development of new solid nodules is concerning for worsening pulmonary metastatic disease, but this indeterminate and short term follow up imaging is recommended. The new groundglass nodules could represent organizing pneumonia in the setting of chemotherapy, but recommend attention to these areas on follow up imaging. 2. Stable postsurgical changes of the right upper and middle lobectomy. Stable posttreatment changes of the left lower lobe. 3. Indeterminate prominent left supraclavicular lymph node. Recommend attention to this area on follow up imaging. ASSESSMENT: Ms. Teri Graham is a 75-year-old female with a history of multiple malignancies. She completed definitive radiation with cisplatin for squamous cell carcinoma of the epiglottis in 2018. She is currently on surveillance. Squamous Cell Carcinoma, epiglottis - completed definitive therapy over 6 years ago - PET scan reviewed which does demonstrate a hypermetabolic node in the left level 4 area - plan for biopsy Hx of Lung Cancer: - has several lung nodules which have been followed for several years - on PET scan these nodules have some mild avidity - these are still indeterminate, but carcinoma is certainly possible (but indolent course if so) - the hilar nodes were particularly avid and may be amenable to biopsy via bronch; will refer for biopsy - if we confirm carcinoma, we will request TEMPUS - we did discuss that if these both confirm carcinoma, treatment would likely be palliative in nature; potentially single agent pembrolizumab, given that this would then reflect a multifocal process/recurrence documented in this encounter Plan of Treatment Scheduled Orders Name Type Priority Associated Diagnoses Orde r Schedule US Guided Biopsy Lymph Node Superficial Left Imaging Schedule Routine, Read Routine (OP Routine) Squamous cell carcinoma of epiglottis (HCC) Expected: 05/09/2025 (Approximate), Expires: 05/02/2026 documented as of this encounter Visit Diagnoses Diagnosis Squamous cell carcinoma of epiglottis (HCC)- Primary documented in this encounter Orders Appointment Requests Count Last Ordered Date Fi rst Ordered Date ONCBCN CLINIC APPOINTMENT REQUEST 1 025 documented in this encounter Care Teams Senior Web Designer Relationship Specialty Start Date End Date David Walker MD [address] [address] PCP - General 06/19/20 eLe Curtis MD Radiation Oncologist Radiation Oncology 03/06/18 documented as of this encounter
[2025-05-06 18:26] VITALS: BP 83/49; PULSE 100; RESP 18; TEMP 37.5; O2SAT 82; BMI 23.6
--- OUTSIDE RECORDS SUMMARY | 2025-05-06 18:26 | XMS_ITS | Encounter Summary ---
Author Organization [facility] Address [address] [place] [address] Phone Care Team Providers Care Molding Machine Operator Helper Name Role Phone Lee Curtis MD Unavailable [phone] Unknown, Letty Primary Care Provider Unavail able David Walker MD Primary Care Provider [phone] Encounter Details Date Type Department Care Team (Latest Contact Info) Description 03/06/2019 Orders Only [facility] Scanning, Provider Social History Tobacco Use Types Packs/Day Years [...] Procedure Name Priority Date/Time Associated Diagnosis Comments SCAN - LABS 03/06/2019 documented in this encounter Results * SCAN - LABS (03/06/2019) us Provider Scanning Edited Result - Final documented in this encounter Visit Diagnoses Not on filedocumented in this encounter Care Teams Molding Machine Operator Helper Relationship Specialty Start Date End Date Unknown, Letty PCP - General 03/13/18 06/18/20 David Walker MD [address] [phone] PCP - General 06/19/20 Lee Curtis MD Radiation Oncologist Radiation Oncology 03/06/18 documented as of this encounter
--- OUTSIDE RECORDS SUMMARY | 2025-05-06 18:26 | XMS_ITS | Clinical Summary ---
Author Organization [facility] Address [address] [place] [address] Care Team Providers Care Director Underwriter Sales Name Role Phone David Walker MD Primary Care Provider [phone] Allergies Active Allergy Reactions Criticality Noted Date Comments Iodinated Contrast Media Rash Low 03/01/2018 Medications fluticasone propionate (FLONASE) 50 mcg/spray [place], Suspension nasal inhalerIndicatio ns:Sinusitis, unspecified chronicity, unspecified [...] often do you attend chur ch or mandaeism services? 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 Gender Identity Not on file Sexual Orientation [...] T d or Tdap) 12/05/2023 12/04/2013, 12/08/2006 INFLUENZA VACCINE (#1) 2025 , 06/04/2020, 06/20/2018, Additional history exists COVID-19 Vaccine (2 - 2024-2 6 season) 2025 10/03/2020 Procedures Procedure Name Priority Date/Time Associated Diagnosis Comments ENDOSCOPY, COLON, SCREENING Routine 08/28/2019 from Last 3 Months or Most Recently Relevant to Health Maintenance Results * ENDOSCOPY, COLON, SCREENING (08/28/2019) us Abstract Spg Provider GI PROCEDURE ORDERABLES Fi nal Result from Last 3 Months or Most Recently Relevant to Health Maintenance Insurance MEDICARE PART A AND B [facility] Care Teams Director Underwriter Sales Relationship Specialty Start Date End Date David Walker MD [address] [phone] PCP - General Family Practice 01/08/20
--- OUTSIDE RECORDS SUMMARY | 2025-05-06 18:26 | XMS_ITS | Encounter Summary ---
Author Organization [facility] Address [address] [place] [address] Care Team Providers Care Finance Insurance Manager Name Role Phone David Walker MD Primary Care Provider [phone] Reason for Visit * Reason Onset Date Comments Medical Records 05/06/2025 Encounter Details Date Type Department Care Team (Late st Contact Info) Description 05/06/2025 Telephone [facility] [address] [address] Corinna Plascencia Medical Records Social History Tobacco Use Types Packs/Day Years [...] who hurts you emotionally and/or physically? No 04/12/2025 Food Insecurity Answer Date Recorded Patient needs follow up regardin 01/08/2025 Transportation Needs Answer Date Record ed Patient needs follow up regardin 01/08/2025 Housing Stability Answer Date Recorded Social/Environmental Concerns No concerns Utility Needs Answer Date Recorded Patient needs follow up regardin 01/08/2025 Comments No Sex and Gender Information Value Date Recorded Sex Assigned at Not on file Legal Sex Female 7:55 AM FRENCH TEACHER Gender Identity Not on file Sexual Orientation Not on file documented as of this encounter Miscellaneous Notes * Telephone Encounter - Corinna Plascencia - 05/06/2025 12:13 PM CDT Contact Name: Charla Newsome Contact Phone Number: Requested results for Mammogram Comments: documented in this encounter Plan of Treatment Upcoming Encounters Date Type Department Care Team (Late st Contact Info) Description 05/16/2025 1:20 PM CDT Office Visit [facility] Medicine [place] [address] [phone] David Walker MD [address] [address] documented as of this encounter Visit Diagnoses Not on filedocumented in this encounter Additional Health Concerns Assessment Noted Time PHQ-9 Depression Total Score: 1 01/09/20 4:20 PM CDT documented as of this encounter Care Teams Finance Insurance Manager Relationship Specialty Start Date End Date David Walker MD [address] [address] PCP - General Family Practice 01/08/20 documented as of this encounter
--- OUTSIDE RECORDS SUMMARY | 2025-05-06 18:26 | XMS_ITS | Encounter Summary ---
Author Organization [facility] Address [address] [place] [address] Care Team Providers Care Financial Services Specialist Name Role Phone Lee Curtis MD Unavailable David Walker MD Primary Care Provider [phone] Encounter Details Date Type Department Care Team (Late st Contact Info) Description 04/13/2023 Telephone [facility] [address] [place] [phone] Laurita Tong, WILLIAM Social History Tobacco Use Types Packs/Day Years [...] on filedocumented in this encounter Care Teams Financial Services Specialist Relationship Specialty Start Date End Date David Walker MD [address] [facility] [address] [place] [address] PCP - General 06/19/20 Lee Curtis MD Radiation Oncologist Radiation Oncology 03/06/18 documented as of this encounter
--- OUTSIDE RECORDS SUMMARY | 2025-05-06 18:26 | XMS_ITS | Clinical Summary ---
Author Organization [facility] Medical [facility] 1 Address [address] [place] [address] Care Team Providers Care Seasonal Warehouse Associate Name Role Phone Lee Curtis MD Unavailable [phone] David Walker MD Primary Care Provider [phone] Allergies Active Allergy Reactions Criticality Noted Date Comments Iodinated Contrast Media Hives,Rash Medium 11/30/2017 Medications oxyCODONE-aceta minophen (PERCOCET) 7.5-325 mg per tabletIndicatio ns:Pain as needed 8 Active levothyroxine (SYNTHROID) 75 mcg tablet Take 1 tablet (75 mcg total) by mouth senior buyer planner before breakfast Active sertraline (ZOLOFT) 50 mg tablet Take 1 tablet (50 mg total) by mouth daily Active turmeric root extract 500 mg capsule Take by mouth Active ascorbic acid (VITAMIN C) 1,000 mg tablet Take 1,000 mg by mouth daily Active albuterol HFA (PROVENTIL HFA,VENTOLIN HFA,PROAIR HFA) 90 mcg/actuation inhaler Inhale 2 puffs every 6 (six) hours as needed 2 Active aspirin 81 mg enteric coated tablet Take 81 mg by mouth daily 2 Active atorvastatin (LIPITOR) 40 mg tablet Take 1 tablet (40 mg total) by mouth nightly 2 Active clopidogreL (PLAVIX) 75 mg tablet Take 1 tablet (75 mg total) by mouth daily 2 Active omeprazole (PriLOSEC) 20 mg capsule Take 1 capsule (20 mg total) by mouth daily 1 Active polyethylene glycol (MIRALAX) 17 gram/dose powder Take 17 g by mouth 2 (two) times a day as needed 2 Active levothyroxine (SYNTHROID) 50 mcg tablet TAKE 1 TABLET BY MOUTH ONCE DAILY IN THE MORNING (DOSE DECREASE) 2 Active diphenhydrAMINE (BENADRYL) 50 mg capsuleIndicati ons:Squamous cell carcinoma of epiglottis (HCC),Allergy, subsequent encounter Take 1 capsule (50 mg total) by mouth once for 1 dose Take orally [address] 1 capsule 5 Active predniSONE (DELTASONE) 50 mg tabletIndicatio ns:Squamous cell carcinoma of epiglottis (HCC),Allergy, subsequent encounter Take orally 19 hrs before, then 13 hrs before then 7 hours before then [address] 4 tablet 5 Active diphenhydrAMINE (BENADRYL) 50 mg capsule Take 1 capsule (50 mg total) by mouth once for 1 dose Take orally [address] 1 capsule 5 04/23/20 25 Discontinu ed(Reorder ) predniSONE (DELTASONE) 50 mg tablet Take orally 19 hrs before, then 13 hrs before then 7 hours before then [address] 4 tablet 5 04/23/20 25 Discontinu ed(Reorder ) Active Problems Problem Noted Date Diagnosed Date LAD (lymphadenopathy), mediastinal 05/03/2025 Need for immunization against influenza 06/20/20 18 Bilateral sensorineural hearing loss 03/22/2018 Tinnitus, bilateral 03/22/2018 Cerebral aneurysm 12/27/2017 History of lung cancer 06/30/2017 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 Advanced Medicine 8th [place] [address] [place] [address] Thelma Gorman, RMA LAD (lymphadenopathy), mediastinal (Primary Dx); Abnormal coagulation profile; Abnormal results of liver function studies 05/02/2025 9:45 AM CDT Office Visit [facility] Medicine Oncology [address] [facility] Floor 5 [place] [address] Derrek Sanchez MD Squamous cell carcinoma of epiglottis (HCC) (Primary Dx) 05/02/2025 7:02 AM CDT - 05/02/2025 11:59 PM CDT Hospital Encounter [facility] [address] [place] [id number] Squamous cell carcinoma of epiglottis (HCC) Discharge Disposition: Discharge to home or self care 05/02/2025 Telephone [facility] Medicine Pulmonary [address] [facility] Advanced Medicine [facility] [place] [address] [place] [address] Thelma Gorman RMA 04/23/2025 Telephone [facility] Medicine Oncology [address] [place] [address] Katie Coello RN 04/18/2025 10:59 AM CDT - 04/18/2025 11:59 PM CDT Hospital Encounter [facility] Radiology [facility] [address] [place] [address] Diagnosis unknown Discharge Disposition: Discharge to home or self care from Last 3 Months Immunizations Immunization Administration Dates Next Due Influenza, Quadrivalent, Elisha l Culture-based MDCK, Preservative Free, Antibiotic Free, Intramuscular 06/20/2018,06/21/2017 Influenza, Quadrivalent, Hig h Dose, Preservative Free, Intrr 06/30/2020 Influenza, Trivalent, Preservative Free, Intramu scular 09/22/2017,06/21/2017 Moderna SARS-CoV-2 Monovalent Vaccination (12+ Y RS) 10/03/2020 Td, adsorbed 12/08/2006 Tdap 12/04/2013 Surgical History Surgery Date Site/Laterality Comments [place] APPENDECTOMY Appendectomy - (Added by TW Conv) [place] COLONOSCOPY FLX DX W/PEREZ J SPEC WHEN PFRMD Colonoscopy - (Added by TW Conv) [place] THORACOTOMY W/DX WEDGE RESEXN &ANTOM LUNG RESEXN Thoracotomy W/ Diagnostic Wedge Resect Followed By Anatomic Lung Resection - (Added by TW Conv) NECK SURGERY Neck Surgery - (Added by TW Conv) CHOLECYSTECTOMY 05/24/2018 GALLBLADDER SURGERY 03/22/2019 - 04/21/2019 TUBAL LIGATION Medical History Medical History Date Comments Personal history of other ma lignant neoplasm of bronchus and lung History of malignant richie plasm of lung - (Added by TW Conv) Personal history of other me ntal and behavioral disorders History of depression - (Add ed by TW Conv) HL (hearing loss) Tinnitus Hypothyroid Cataract Family History Medical History Relation Name Comments Cancer Brother 1 Prostate cancer Brother 1 Family histo ry of malignant neoplasm of prostate - (Added by TW Conv) Throat cancer Brother 2 Irritable bowel syndrome Daughter No Known Problems Father Seizures Grandchild COPD Mother Tuberculosis Mother Breast cancer Sister Family history of malignant neoplasm of breast - (Added by TW Conv) Cancer Sister Relation Name Status Comments Brother 1 Brother 2 Alive Daughter Alive Father Grandchild Alive Mother Sister Social History Tobacco Use Types Packs/Day Years Used Date Smoking Tobacco: Former Cigarettes Q uit: 12/2015 Smokeless Tobacco: Former Tobacco Cessation:Counseling Given: Not Answered Alcohol Use Standard Drinks/Week Comments Not Currently 0 (1 standard drink = 0.6 oz pur e alcohol) Comments Unknown Sex and Gender Information Value Date Recorded Sex Assigned at Not on file Legal Sex Female 1:53 PM CDT Gender Identity Not on file Sexual Orientation Not on file Obstetrics History Last Filed Vital Signs Vital Sign Reading [...] Mass Index 23.11 05/02/2025 8:54 AM CDT Plan of Treatment Health Maintenance Due Date Last Done Comments Breast Cancer Screening-Mammogram 1952 Colon Cancer Screening-Colonoscopy 1950 Depression Screening 1952 Fall Risk Assessment 1950 Hepatitis C Screening 1950 Osteoporosis Screening-Bone Density Scan 1950 Hepatitis B Screening 02/26/1970 Pneumococcal vaccine 65+ (1 of 2 - PCV) 02/26/1971 Zoster Vaccine (1 of 2) 02/26/2002 Well Visit 65+ 02/26/2017 DTaP/Tdap/Td Vaccine (2 - Td or Tdap) 12/05/2023 12/04/2013, 12/08/2006 Covid-19 Vaccine (2 - 2024-2 6 season) 2025 10/03/2020 Influenza Vaccine (#1) 2025 4, 06/30/2020, 06/20/2018, Additional history exists Procedures Procedure Name Priority Date/Time Associated Diagnosis Comments CT CHEST W CONTRAST Schedule Routine, Read Routine (OP Routine) 05/02/2025 8:05 AM CDT Squamous cell carcinoma of epiglottis (HCC) CT SOFT TISSUE NECK W CONTRAST Schedule Routine, Read Routine (OP Routine) 05/02/2025 8:05 AM CDT Squamous cell carcinoma of epiglottis (HCC) PET OUTSIDE CONSULT Routine 04/18/2025 10:59 AM CDT Diagnosis unknown from Last 3 Months Results * CT Chest W Contrast (05/02/2025 [...] on follow up imaging. Dictated by: Hong Wilkins, M.D. The radiology attending physician has personally reviewed this study, and had reviewed and/or edited this written report and agrees with it. Electronically signed by: Abhijit Muller M.D. Derrek Sanchez MD IMG CT PROCEDURES Final [...] Unchanged prominent left level four lymph node (279) with compared with 04/18/2025 PET/CT. Unchanged diffuse [...] by: Ericka Armstrong M.D. Derrek Sanchez MD IM CT PROCEDURES Final Res ult * PET Outside Consult (04/18/2025 10:59 AM CDT) Anatomical Region Laterality Modality N/A Nuclear Medicine 04/19/2025 10:0 6 AM CDT Impressions 04/19/2025 10:33 AM CDT 1. Multiple, moderately hypermetabolic pulmonary nodules bilaterally, suspicious for malignancy such as pulmonary adenocarcinoma or squamous cell carcinoma. Hypermetabolic mediastinal and left paratracheal lymph nodes, most consistent with brandy metastatic disease. 2. Markedly hypermetabolic left level [...] images may or may not represent the [employer] source data set and thus may contain changes that may lower the accuracy of this second-opinion interpretation. Dictated by: Terry Sandoval M.D. The radiology attending physician has personally reviewed this study, and had reviewed and/or edited this written report and agrees with it. Electronically signed by: MD Ana Laura Méndez 04/19/2025 10:33 AM CDT EXAMINATION: RADIOLOGY CONSULTATION ON OUTSIDE IMAGING STUDY . STUDY INITIALLY PERFORMED: 04/12/2025, images acquired at [facility] TYPE OF STUDY: FDG-PET/CT. The images available for review consisted of axial attenuation-corrected and uncorrected PET images and axial CT images. The total scanned area was skull vertex to the proximal thighs. The mean liver SUV (reported for quality control tech raw materials purposes) is 2.9. The study was interpreted on the [employer] workstation. The protocol was adequate to address the clinical question. The outside final report was available at the time of this second opinion interpretation. 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 Definitive chemoradiation therapy for squamous carcinoma of the epiglottis completed 2017. Currently on surveillance. Subsequent treatment strategy. All reported SUVs are maximum SUVs, unless otherwise specified. COMPARISON: CT from 11/01/2024, PET/CT 01/03/2018 DESCRIPTORS OF LESION FDG AVIDITY: Minimal: <= blood pool Mild: > blood pool and <= liver Moderate: > liver and <= 2x SUVmax liver Moderate to marked: >2x SUVmax liver and <= 3x SUVmax liver Marked: > 3x SUVmax liver FINDINGS: Markedly hypermetabolic left level 4 lymph node (87/341) with SUV 25.7 measuring 0.8 x 1.5 cm. Moderately hypermetabolic left apical nodule (98) measuring 0.7 cm with SUV 5.2. Moderate to markedly hypermetabolic right upper lobe nodule measuring 1.2 cm with SUV 7.6 (117). Mild to moderately hypermetabolic left lower lobe pulmonary nodules (140, 150) with SUV up to 4.6 measuring approximately 0.8 cm each. Markedly hypermetabolic aortopulmonary lymph node with SUV 13.4, measuring up to 1.2 cm short axis (112) subcentimeter mildly to moderately hypermetabolic left paratracheal lymph node (97) with SUV 5.2. The most FDG-avid lesion is a left level 4 cervical lymph node, has a maximum SUV of 25.7, and approximate axial dimensions of 0.8 x [address] findings: Mild emphysema. Postradiation changes in the left lower lobe. Bilateral lens replacements. Carotid artery calcifications. Thoracic aortic calcifications. Mitral annular calcifications. Surgically absent gallbladder. Aortoiliac atherosclerosis without aneurysmal dilatation of the abdominal aorta. Degenerative changes of the spine with minimal kyphosis of the cervical spine centered at C4 with stepwise anterolisthesis from C2 to C4 and minimal retrolisthesis of C4 on C5 and C5 on C6. Procedure Note Richy Beard MD - 04/19/2025 EXAMINATION: RADIOLOGY CONSULTATION ON OUTSIDE IMAGING STUDY . STUDY INITIALLY PERFORMED: 04/12/2025, images acquired at [facility] TYPE OF STUDY: FDG-PET/CT. The images available for review consisted of axial attenuation-corrected and uncorrected PET images and axial CT images. The total scanned area was skull vertex to the proximal thighs. The mean liver SUV (reported for quality control tech raw materials purposes) is 2.9. The study was interpreted on the [employer] workstation. The protocol was adequate to address the clinical question. The outside final report was available at the time of this second opinion interpretation. 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 Definitive chemoradiation therapy for squamous carcinoma of the epiglottis completed 2017. Currently on surveillance. Subsequent treatment strategy. All reported SUVs are maximum SUVs, unless otherwise specified. COMPARISON: CT from 11/01/2024, PET/CT 01/03/2018 DESCRIPTORS OF LESION FDG AVIDITY: Minimal: <= blood pool Mild: > blood pool and <= liver Moderate: > liver and <= 2x SUVmax liver Moderate to marked: >2x SUVmax liver and <= 3x SUVmax liver Marked: > 3x SUVmax liver FINDINGS: Markedly hypermetabolic left level 4 lymph node (87/341) with SUV 25.7 measuring 0.8 x 1.5 cm. Moderately hypermetabolic left apical nodule (98) measuring 0.7 cm with SUV 5.2. Moderate to markedly hypermetabolic right upper lobe nodule measuring 1.2 cm with SUV 7.6 (117). Mild to moderately hypermetabolic left lower lobe pulmonary nodules (140, 150) with SUV up to 4.6 measuring approximately 0.8 cm each. Markedly hypermetabolic aortopulmonary lymph node with SUV 13.4, measuring up to 1.2 cm short axis (112) subcentimeter mildly to moderately hypermetabolic left paratracheal lymph node (97) with SUV 5.2. The most FDG-avid lesion is a left level 4 cervical lymph node, has a maximum SUV of 25.7, and approximate axial dimensions of 0.8 x [address] findings: Mild emphysema. Postradiation changes in the left lower lobe. Bilateral lens replacements. Carotid artery calcifications. Thoracic aortic calcifications. Mitral annular calcifications. Surgically absent gallbladder. Aortoiliac atherosclerosis without aneurysmal dilatation of the abdominal aorta. Degenerative changes of the spine with minimal kyphosis of the cervical spine centered at C4 with stepwise anterolisthesis from C2 to C4 and minimal retrolisthesis of C4 on C5 and C5 on C6. IMPRESSION: 1. Multiple, moderately hypermetabolic pulmonary nodules bilaterally, suspicious for malignancy such as pulmonary adenocarcinoma or squamous cell carcinoma. Hypermetabolic mediastinal and left paratracheal lymph nodes, most consistent with brandy metastatic disease. 2. Markedly hypermetabolic left level [...] images may or may not represent the [employer] source data set and thus may contain changes that may lower the accuracy of this second-opinion interpretation. Dictated by: Terry Sandoval M.D. The radiology attending physician has personally reviewed this study, and had reviewed and/or edited this written report and agrees with it. Electronically signed by: Richy Beard MD Derrek Sanchez MD IMG PET PROCEDURES Final Re sult from Last 3 Months Insurance [place] [employer] [facility] DUAL COMPLETE [id number] MEDICARE COMMERCIAL GENERIC [facility] DUAL COMPLETE [id number] Care Teams Seasonal Warehouse Associate Relationship Specialty Start Date End Date David Walker MD [address] [address] PCP - General 06/19/20 Lee Curtis MD Radiation Oncologist Radiation Oncology 03/06/18
--- OUTSIDE RECORDS SUMMARY | 2025-05-06 18:26 | XMS_ITS | Encounter Summary ---
Author Organization [facility] Address [address] [place] [address] Care Team Providers Care Assistant Director Of Residence Life Name Role Phone David Walker MD Primary Care Provider [phone] Encounter Details Date Type Department Care Team (Late st Contact Info) Description 05/06/2025 Orders Only [facility] Ambulatory Quality [address] [place] [address] Provider, Abstract NO ADDRESS ON FILE Social History Tobacco [...] on file Legal Sex Female 7:55 AM LOAN INTERVIEWER Gender Identity Not on file Sexual Orientation Not on file documented as of this encounter Plan of Treatment Upcoming Encounters Date Type Department Care Team (Late st Contact Info) Description 05/16/2025 1:20 PM CDT Office Visit [facility] Family Medicine [place] [address] [address] David Walker MD [address] [address] documented as of this encounter Procedures Procedure Name Priority Date/Time Associated Diagnosis Comments MAMMO SCREEN BILAT W OR WO CAD Routine 06/21/2024 documented in this encounter Results * MAMMO SCREEN BILAT W OR WO CAD (06/21/2024) Anatomical Region Laterality Modality Breast Bilateral Mammography us Abstract Provider MAMMO ORDERABLES Edited Result - Final documented in this encounter Visit Diagnoses Not on filedocumented in this encounter Additional Health Concerns Assessment Noted Time PHQ-9 Depression Total Score: 1 01/09/20 25 4:20 PM CDT documented as of this encounter Care Teams Assistant Director Of Residence Life Relationship Specialty Start Date End Date David Walker MD [address] [address] PCP - General Family Practice 01/08/20 documented as of this encounter
--- OUTSIDE RECORDS SUMMARY | 2025-05-06 18:26 | XMS_ITS ---
Author Organization [facility] Medical [facility] 1 Address [address] [facility] [place] [address] Care Team Providers Care Filter Pulp Washer Name Role Phone Lee Curtis MD Unavailable [phone] David Walker MD Primary Care Provider [phone] Active Problems Problem Noted Date Diagnosed Date LAD (lymphadenopathy), mediastinal 05/03/2025 Need for immunization against influenza 06/20/20 18 Bilateral sensorineural hearing loss 03/22/2018 Tinnitus, bilateral 03/22/2018 Cerebral aneurysm 12/27/2017 History of lung cancer 06/30/2017 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 Past Treatment and Therapy Plans No past plan information found. Radiation Treatments * Course C2 H_N 2017 07/25/2017 - 09/02/2017 Treatment Period Energy Fraction Dose Fractions Total Dose Plans Planned HEAD_NECK 07/25/2017 - 09/02/2017 200 35 / 7,000 Reference Points Delivered PTV_7000 07/25/2017 - 09/02/2017 7,000 Lifetime Dose Tracking * Chemical Lifetime Dose Automatic Entry Manual Entr y DLP 9,838.2 mGycm 9,838.2 mGycm 0 mGycm
--- OUTSIDE RECORDS SUMMARY | 2025-05-06 18:26 | XMS_ITS | Encounter Summary ---
Author Organization [facility] Healthcare Address [address] [place] [address] Care Team Providers Care Flat Spring Assembler Name Role Phone Lee Curtis MD Unavailable [phone] Unknown, Letty Primary Care Provider Unavail able David Walker MD Primary Care Provider [phone] Encounter Details Date Type Department Care Team (Late st Contact Info) Description 12/24/2019 Telephone [facility] Imaging [address] [place] [address] Jojo Delvalle RT Social History Tobacco Use Types Packs/Day Years [...] on filedocumented in this encounter Care Teams Flat Spring Assembler Relationship Specialty Start Date End Date Unknown, Letty PCP - General 03/13/18 06/18/20 David Walker MD [address] [facility] [address] [place] [address] PCP - General 06/19/20 Lee Curtis MD Radiation Oncologist Radiation Oncology 03/06/18 documented as of this encounter
--- OUTSIDE RECORDS SUMMARY | 2025-05-06 18:26 | XMS_ITS | Encounter Summary ---
Author Organization [facility] Address [address] [place] [address] Phone Care Team Providers Care Automobile Club Travel Counselor Name Role Phone Lee Curtis MD Unavailable [phone] David Walker MD Primary Care Provider [phone] Encounter Details Date Type Department Care Team (Latest Contact Info) Description 05/22/2023 Orders Only [facility] Scanning, Provider [...] Priority Date/Time Associated Diagnosis Comments SCAN - RADIOLOGY/IMAGING 05/22/2023 documented in this encounter Results * SCAN - RADIOLOGY/IMAGING (05/22/2023) Anatomical Region Laterality Modality Other us Provider Scanning Final Result documented in this encounter Visit Diagnoses Not on filedocumented in this encounter Care Teams Automobile Club Travel Counselor Relationship Specialty Start Date End Date David Walker MD [address] [place] [address] PCP - General 06/19/20 Lee Curtis MD Radiation Oncologist Radiation Oncology 03/06/18 documented as of this encounter
--- OUTSIDE RECORDS SUMMARY | 2025-05-06 18:26 | XMS_ITS ---
Author Organization [facility] Address [address] [place] [address] Care Team Providers Care Rivet Hole Puncher Name Role Phone David Walker MD Primary Care Provider [phone] Active Problems Problem Noted Date Diagnosed Date [...]
--- OUTSIDE RECORDS SUMMARY | 2025-05-06 18:27 | XMS_ITS | Encounter Summary ---
Author Organization [facility] Address [address] [place] [address] Care Team Providers Care Cna Gna Name Role Phone David Walker MD Primary Care Provider [phone] Encounter Details Date Type Department Care Team (Latest Contact Info) Description 07/31/2002 Outpatient Historical 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 Gender Identity Not on file Sexual Orientation Not on file documented as of this encounter Plan of Treatment Not on file documented as of this encounter Visit Diagnoses Diagnosis Acute bronchitis- Primary documented in this encounter Additional Health Concerns Infection Onset Date Last Indicated Resolved Time R/O COVID-19 06/04/2020 06/04/2020 06/06/2020 1:16 AM CDT COVID-19 06/04/2020 06/04/2020 07/04/2020 8:09 PM WATER CONTROL SUPERVISOR documented as of this encounter Care Teams Cna Gna Relationship Specialty Start Date End Date David Walker MD [address] [facility] [address] [place] [address] PCP - General Family Practice 01/08/20 documented as of this encounter
--- OUTSIDE RECORDS SUMMARY | 2025-05-06 18:27 | XMS_ITS | Encounter Summary ---
Author Organization [facility] Healthcare Address [address] [place] [address] Care Team Providers Care Real Estate Underwriter Name Role Phone Lee Curtis MD Unavailable [phone] David Walker MD Primary Care Provider [phone] Encounter Details Date Type Department Care Team (Late st Contact Info) Description 05/06/2025 Telephone [facility] Radiology [address] [place] [address] Jeniffer Tena RN Social History Tobacco Use Types Packs/Day Years [...] encounter Miscellaneous Notes * Telephone Encounter - Jeniffer Tena RN - 05/06/2025 8:56 AM CDT Called pt to schedule biopsy, but pt was unavailable. Left msg with daughter requesting call back. documented in this encounter Plan of Treatment Not on file documented as of this encounter Visit Diagnoses Not on filedocumented in this encounter Care Teams Real Estate Underwriter Relationship Specialty Start Date End Date David Walker MD [address] [address] PCP - General 06/19/20 Lee Curtis MD Radiation Oncologist Radiation Oncology 03/06/18 documented as of this encounter
--- OUTSIDE RECORDS SUMMARY | 2025-05-06 18:27 | XMS_ITS | Encounter Summary ---
Author Organization [facility] Address [address] [place] [address] Phone Care Team Providers Care Executive Sales Assistant Name Role Phone Lee Curtis MD Unavailable [phone] David Walker MD Primary Care Provider [phone] Encounter Details Date Type Department Care Team (Late st Contact Info) Description 05/02/2025 Telephone [facility] Medicine Pulmonary [address] [facility] Advanced Medicine 8th [place] [address] [place] [address] Thelma Gorman RMA Social History Tobacco Use Types Packs/Day Years [...] encounter Miscellaneous Notes * Telephone Encounter - Thelma Gorman RMA - 05/02/2025 2:10 PM CDT LVM to call office back to schedule for procedure. 1st attempt documented in this encounter Plan of Treatment Not on file documented as of this encounter Visit Diagnoses Not on filedocumented in this encounter Care Teams Executive Sales Assistant Relationship Specialty Start Date End Date David Walker MD [address] [address] PCP - General 06/19/20 Lee Curtis MD Radiation Oncologist Radiation Oncology 03/06/18 documented as of this encounter
--- OUTSIDE RECORDS SUMMARY | 2025-05-06 18:27 | XMS_ITS | Encounter Summary ---
Author Organization [facility] Address [address] [place] [address] Care Team Providers Care Gear Coding Machine Operator Name Role Phone David Walker MD Primary Care Provider [phone] Encounter Details Date Type Department Care Team (Latest Contact Info) Description 06/05/2001 Outpatient Historical [facility] Family Medicine- [facility] [address] [place] [address] Xiomara Lira MD NO ADDRESS ON FILE Acute bronchitis (Primary Dx); Adjustment disorder with depressed mood Social History Tobacco Use Types Packs/Day Years Used Date Smoking Tobacco: Never Assessed Comments Unknown Sex and Gender Information Value Date Recorded Sex Assigned at Not on file Legal Sex Female 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
--- OUTSIDE RECORDS SUMMARY | 2025-05-06 18:27 | XMS_ITS | Encounter Summary ---
Author Organization [facility] Address [address] [place] [address] Phone Care Team Providers Care It Business Systems Analyst Name Role Phone Lee Curtis MD Unavailable [phone] David Walker MD Primary Care Provider [phone] Reason for Referral * Pulmonology (Routine) - Authorized Specialty Diagnoses / Procedures Referred By Contac t Referred To Contact Pulmonary Disease Diagnoses LAD (lymphadenopathy), mediastinal Procedures Bronchoscopy -[facility] Interventional Pulm; EBUS LINEAR, Bronchoscopy Rory Villavicencio MD [address] [place] [address] Phone: tel: fax: Referral ID Status Reason Start Date Expiration Date V isits Requested Visits Authorized [id number] Authorized 05/03/2025 06/02/2026 1 1 Encounter Details Date Type Department Care Team (Late st Contact Info) Description 05/03/2025 Orders Only [facility] Medicine Pulmonary [address] [facility] Advanced Medicine 8th [place] [address] [place] [id number] Thelma Gorman RMA LAD (lymphadenopathy), mediastinal (Primary Dx); Abnormal coagulation profile; Abnormal results of liver function studies Social History Tobacco Use Types Packs/Day Years [...] as of this encounter Plan of Treatment Scheduled Orders Name Type Priority Associated Diagnoses Orde r Schedule Bronchoscopy -[facility] Interventional Pulm; EBUS LINEAR, Bronchoscopy PFT Routine LAD (lymphadenopathy), mediastinal Expected: 05/17/2025, Expires: 05/03/2026 CBC without differential Lab Routine LAD (lymphadenopathy), mediastinal Expected: 05/17/2025, Expires: 05/03/2026 aPTT Lab Routine LAD (lymphadenopathy), mediastinal Abnormal coagulation profile Expected: 05/17/2025, Expires: 05/03/2026 Protime-INR Lab Routine LAD (lymphadenopathy), mediastinal Abnormal results of liver function studies Expected: 05/17/2025, Expires: 05/03/2026 documented as of this encounter Visit Diagnoses Diagnosis LAD (lymphadenopathy), mediastinal- Primary Abnormal coagulation profile Abnormal results of liver function studies Nonspecific abnormal results of liver function study documented in this encounter Care Teams It Business Systems Analyst Relationship Specialty Start Date End Date David Walker MD [address] [address] PCP - General 06/19/20 Lee Curtis MD Radiation Oncologist Radiation Oncology 03/06/18 documented as of this encounter
--- OUTSIDE RECORDS SUMMARY | 2025-05-06 18:27 | XMS_ITS | Clinical Summary ---
Author Organization [facility] Address [address] [place] [address] Care Team Providers Care Track Worker Name Role Phone David Walker MD Primary Care Provider [phone] Allergies Active Allergy Reactions Criticality Noted Date Comments Iodinated Contrast Media Rash Low 03/01/2018 Medications aspirin (ECOTRIN EC) 81 mg Tablet, Delayed Release (E.C.) Take 1 Tablet (81 mg) by mouth daily. 90 Tablet 11 11/27/19 22 Active polyethylene glycol (MIRALAX) 17 gram Powder in Packet Take 1 Packet (17 Grams) by mouth 2 times daily as needed for Constipation. 90 Each 1 11/27/19 22 Active nebulizerIndicat ions:Chronic obstructive pulmonary disease with acute exacerbation (CMS/HCC) Length of need 99 months Nebulizer with compressor, Kit: Disposable Nebulizer Kit, 2 per month, filters , areosol mask: Yes. Name of Medication: albuterol 1 Each 05/21/20 24 Active ondansetron (ZOFRAN ODT) 4 mg Tablet, Rapid Dissolve Take 4 mg by mouth every 8 hours as needed for Nausea/Emesis. Dissolve tablet on top of tongue, then swallow with saliva. Active atorvastatin (LIPITOR) 40 mg tablet TAKE 1 TABLET BY MOUTH ONCE DAILY AT BEDTIME 100 Tablet 1 11/07/19 25 Active omeprazole (PriLOSEC) 20 mg Capsule, Delayed Release(E.C.)Ind ications:Gastroe sophageal reflux disease without esophagitis Take 1 capsule by mouth once daily 100 Capsule 1 12/26/19 25 Active inhalational spacing device (BreatheRite MDI Spacer) Spacer For use with inhaler 1 Each 12/30/19 25 Active albuterol-budeso nide (Airsupra) 90-80 mcg/actuation HFA Aerosol Inhaler Take 2 Puffs by inhalation every 6 hours as needed for Other (See Comment) (Wheezing, Shortness of breath). 10.7 Gram 1 12/30/19 25 Active albuterol (PROVENTIL,SAPPHIRE LY) 2.5 mg /3 mL (0.083 %) Solution for NebulizationIndi cations:Chronic obstructive pulmonary disease with acute exacerbation (CMS/HCC) Take 3 mL (2.5 mg) by inhalation every 6 hours as needed for Shortness of Breath. 360 mL 1 01/02/20 25 Active acetaminophen (TYLENOL) 500 mg tablet Take 1,000 mg by mouth every 6 hours as needed for Pain. For pain r/t back surgery Active clopidogreL (PLAVIX) 75 mg Tablet Take 1 Tablet by mouth daily. 02/09/20 25 Active bisacodyL (DULCOLAX) 5 mg Delayed Release tablet TAKE 4 TABLETS BY MOUTH AT 200PM THE DAY BEFORE THE COLONOSCOPY PROCEDURE 03/25/20 25 Active Dulera 200-5 mcg/actuation inhaler Take 2 Puffs by inhalation 2 times daily. 01/25/20 25 Active levothyroxine 75 mcg tabletIndication s: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d TAKE 1 TABLET BY MOUTH ONCE DAILY IN THE MORNING 100 Tablet 04/18/20 25 Active sertraline (ZOLOFT) 100 mg tabletIndication s:ANDRÉS (generalized anxiety disorder) TAKE 1 TABLET BY MOUTH ONCE DAILY . 100 Tablet 1 04/18/20 25 Active levothyroxine 75 mcg tabletIndication s: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d TAKE 1 TABLET BY MOUTH ONCE DAILY IN THE MORNING *DOSE INCREASE* 100 Tablet 1 10/08/19 25 025 Discontin ued(Reord er) sertraline (ZOLOFT) 100 mg tabletIndication s:ANDRÉS (generalized anxiety disorder) TAKE 1 TABLET BY MOUTH ONCE DAILY . DOSE INCREASE 100 Tablet 1 10/15/19 25 025 Discontin ued(Reord er) Active Problems Problem Noted Date Diagnosed Date Pre-syncope 04/12/2025 Dizziness and giddiness 04/12/2025 Pneumonia of right upper lobe due to [...] Date Type Department Care Team Description 05/06/2025 Orders Only [address] [place] [phone] Provider, Abstract 05/06/2025 [address] [phone] Thais Corinna A Medical Records 04/18/[address] [phone] David Walker MD 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d; ANDRÉS (generalized anxiety disorder) 04/17/2025 1:00 PM CDT Office Visit [address] [phone] Sujey Hansen, AMISH 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d (Primary Dx); Syncope, unspecified syncope type; Primary malignant neoplasm of bronchus or lung of upper lobe (CMS/HCC); Malignant neoplasm of overlapping sites of left bronchus and lung (CMS/HCC); Cerebral aneurysm; Cerebrovascular disease; Stenosis of right carotid artery; History of CVA with residual deficit; History of TIA (transient ischemic attack) and stroke; Mild cognitive impairment 04/16/2025 External Device Data STL ABSTRACTION Provider, Abstract 04/12/2025 12:00 PM CDT - 04/12/2025 2:52 PM CDT Emergency [facility] Emergency Medicine [address] [place] [phone] Shahid Robins MD Dizziness and giddiness (Primary Dx); Abnormal TSH Discharge Disposition: Home or Self Care 04/12/2025 Travel 04/09/2025 External Device Data STL ABSTRACTION Provider, Abstract 03/28/2025 3:40 PM CDT Office Visit [address] [phone] Latricia Morgan, AGENCY SALES MANAGEMENT ASSISTANT Herpes zoster without complication (Primary Dx); Screening mammogram, encounter for 03/19/2025 External Device Data STL ABSTRACTION Provider, Abstract 03/19/2025 Abstract [facility] [address] [phone] Provider, Abstract 03/19/2025 Abstract [facility] [address] [phone] Provider, Abstract 03/11/2025 10:20 AM CDT Office Visit [facility] [address] [phone] Karen Duran FNP Hospital discharge follow-up (Primary Dx); Malignant neoplasm of overlapping sites of left bronchus and lung (CMS/HCC); Pneumonia due to infectious organism, unspecified laterality, unspecified part of lung; Anemia, unspecified type 03/11/2025 Orders Only [address] [phone] Provider, Abstract 03/05/[address] [phone] David Walker MD Provider Call 03/01/2025 11:00 AM CDT Office Visit [facility] Vascular Surgery [address] [phone] Gonzalo Munson NP Stenosis of right carotid artery (Primary Dx) 03/01/2025 10:00 AM CDT Ancillary Procedure [facility] [phone] Gonzalo Munson NP Stenosis of right carotid artery 03/01/2025 12:15 AM CDT - 03/01/2025 11:59 PM CDT Hospital Encounter [facility] Emergency Medical Services [place] [phone] [phone] Ambulance, [facility] Discharge Disposition: [facility] [address] [facility] Vascular Surgery [address] [phone] Gonzalo Munson NP Appointment Verification 02/25/2025 Patient Outreach [facility] Quality [address] [place] [phone] David Walker MD Breast Cancer Screening (Called to schedule mammogram. Unable to leave message. Sent [facility] message. If patient calls, please schedule mammogram or transfer call to [facility] [phone] or the [facility] Breast Imaging [place] where patient would like to have mammogram. ); Primary Care Outreach (Called to schedule mammogram. Unable to leave message. Sent [facility] message. If patient calls, please schedule mammogram or transfer call to [facility] [phone] or the [facility] [place] where patient would like to have mammogram. ) 02/18/[address] [facility] Family Medicine [place] [address] [facility] [address] [place] [address] David Walker MD Provider Call 02/14/2025 External Device Data Initial Department [address] [place] [address] ATTN: [place] [address] [facility], [place] 02/04/2025 External Device Data Initial Department [address] [place] [address] ATTN: [place] [address] [facility] [place] 02/04/2025 Telephone [facility] [phone] [place] [phone] Kristin Haile, RN [facility] Connect from Last 3 Months Immunizations Immunization Administration [...] on file Legal Sex Female 7:55 AM CARE AID Gender Identity Not on file Sexual Orientation Not on file Last Filed Vital Signs Vital Sign Reading Time Taken Comments Blood Pressure 134/76 04/17/2025 12:49 PM CDT Pulse 93 04/17/2025 12:49 PM CDT Temperature 37 C (98.6 F) 04/17/2025 12:49 PM CDT Respiratory Rate 18 04/17/2025 12:49 PM CDT Oxygen Saturation 93% 04/17/2025 12:49 PM CDT Inhaled Oxygen Concentration - - Weight 60.4 kg (133 lb 2 oz) 04/17/2025 12:49 PM CDT Height 162.6 cm (5' 4 ) 04/17/2025 12:49 PM CDT Body Mass Index 22.85 04/17/2025 12:49 PM CDT Plan of Treatment Upcoming Encounters Date Type Department Care Team (Late st Contact Info) Description 05/16/2025 1:20 PM CDT Office Visit [facility] Medicine [address] [phone] David Walker MD [address] [phone] Health Maintenance Due Date Last Done Comments [...] T d or Tdap) 12/05/2023 12/04/2013, 12/08/2006 Medicare [place]) Preventative Visit/Annual Wellness Visit 08/22/2024 04/30/2024, 06/04/2022 INFLUENZA VACCINE (#1) 2025 4, 06/28/2023, 07/07/2022, Additional history exists COVID-19 Vaccine (4 - 2024-2 6 season) 2025 08/20/2021, 10/31/2020, 10/03/2020 Traditional Medicare (ACO) A nnual Wellness Visit 05/01/2025 04/30/2024, 06/04/2022 BREAST CANCER SCREENING 06/21/2025 06/21/20 24, 06/21/2024, 06/21/2024, Additional history exists Procedures Procedure Name Priority Date/Time Associated Diagnosis Comments EKG 12-LEAD Stat 04/12/2025 1:16 PM CDT XR CHEST PA OR AP 1 VW Stat 12:[address] HEAD WO CONTRAST Stat 04/12/2025 1 2:23 PM CDT D-DIMER Stat 04/12/2025 12:19 PM CDT PTT Stat 04/12/2025 12:19 PM CDT PROTIME-INR Stat 04/12/2025 12:19 PM CDT MAGNESIUM LEVEL Stat 04/12/2025 12:07 PM CDT C-REACTIVE PROTEIN Stat 04/12/2025 12 :07 PM CDT LACTIC ACID Stat 04/12/2025 12:07 PM CDT TSH Stat 04/12/2025 12:07 PM CDT BRAIN NATRIURETIC PEPTIDE, BNP OR PROBNP Stat 04/12/2025 12:07 PM CDT COMPREHENSIVE METABOLIC PANEL Stat 04/12/2025 12:07 PM CDT SEDIMENTATION RATE Stat 04/12/2025 12 :07 PM CDT CBC WITH DIFFERENTIAL Stat 04/12/2025 12:07 PM CDT COMPREHENSIVE METABOLIC PANEL Routine 03/06/2025 1:03 PM CDT ECHO COMPLETE Routine 03/03/2025 1:03 PM CDT COMPREHENSIVE METABOLIC PANEL Routine 03/01/2025 1:02 PM CDT US CAROTID DOPPLER Routine 03/01/2025 10 :24 AM CDT Stenosis of right carotid artery MAMMO SCREEN BILAT W OR WO CAD Routine 06/21/2024 ENDOSCOPY, COLON, SCREENING 08/28/2019 12:00 AM CARE AID from Last 3 Months or Most Recently Relevant to Health Maintenance Results * EKG 12 lead (04/12/2025 1:16 PM CDT) Narrative Shahid Robins MD - 04/12/2025 1:16 PM CDT Shahid Robins MD 04/12/2025 2:36 PM EKG 12 lead Date/Time: 04/12/2025 1:16 PM Performed by: Shahid Robins MD Authorized by: Shahid Robins MD ECG interpreted by ED Physician in the absence of a adult secondary education instructor: yes Rate: ECG rate: 96 ECG rate assessment: age appropriate Rhythm: Rhythm Origin: sinus Sumner: QRS axis: Normal Intervals: normal QRSTT: QRSTT changes: Yes Comments: TWI in lead aVL, however no contiguous lead abnormalities. us Shahid Robins MD ECG ORDERABLES Final Result * XR CHEST PA OR AP 1 VW (04/12/2025 12:31 PM CDT) Anatomical Region Laterality Modality Chest Computed Radiogr aphy 04/12/2025 12:3 1 PM CDT Impressions 04/12/2025 12:37 PM CDT IMPRESSION: Please see below. Exam: XR CHEST PA OR AP 1 VW Date/Time of Exam: 04/12/2025 12:31 PM Reason For Exam: Shortness of Breath SOB, Hypoxia. Diagnosis: See Reason for Exam. Findings: No pleural effusion or pneumothorax. Parenchymal scarring lower lung zones. No consolidating airspace disease. Cardiac silhouette within normal limits. Imaged skeleton without gross acute pathology. Narrative Procedure Note Lazarus Allan MD - 04/12/2025 IMPRESSION: Please see below. Exam: XR CHEST PA OR AP 1 VW Date/Time of Exam: 04/12/2025 12:31 PM Reason For Exam: Shortness of Breath SOB, Hypoxia. Diagnosis: See Reason for Exam. Findings: No pleural effusion or pneumothorax. Parenchymal scarring lower lung zones. No consolidating airspace disease. Cardiac silhouette within normal limits. Imaged skeleton without gross acute pathology. us Shahid Robins MD DIAGNOSTIC IMAGING ORDERABLES F inal Result * CT HEAD WO CONTRAST (04/12/2025 12:23 PM CDT) Anatomical Region Laterality Modality Head Computed Tomogra phy 04/12/2025 12:1 0 PM CDT Impressions 04/12/2025 12:54 PM CDT IMPRESSION: 1. No acute intracranial abnormality. 2. Chronic microangiopathic changes with mild parenchymal atrophy. 3. Chronic lacunar infarcts in the left thalamus Narrative 04/12/2025 12:54 PM CDT EXAM: CT HEAD WO CONTRAST DATE/TIME OF EXAM: 04/12/2025 12:23 PM REASON FOR STUDY: Neuro deficit, acute, stroke suspected DIAGNOSIS: See Reason for Exam COMPARISON: May 13, 2024. TECHNIQUE: CT head performed without contrast. FINDINGS: No evidence of an acute territorial infarct, parenchymal hemorrhage, hydrocephalus or abnormal extra-axial fluid collection. No midline shift. Basilar cisterns remain patent. Hypodensities of the periventricular white matter are nonspecific but compatible with mild microangiopathic changes. Chronic lacunar infarct in the left thalamus. No mastoid effusion. No paranasal sinus fluid level. No calvarial fracture. Procedure Note Oral Tyler MD - 04/12/2025 EXAM: CT HEAD WO CONTRAST DATE/TIME OF EXAM: 04/12/2025 12:23 PM REASON FOR STUDY: Neuro deficit, acute, stroke suspected DIAGNOSIS: See Reason for Exam COMPARISON: May 13, 2024. TECHNIQUE: CT head performed without contrast. FINDINGS: No evidence of an acute territorial infarct, parenchymal hemorrhage, hydrocephalus or abnormal extra-axial fluid collection. No midline shift. Basilar cisterns remain patent. Hypodensities of the periventricular white matter are nonspecific but compatible with mild microangiopathic changes. Chronic lacunar infarct in the left thalamus. No mastoid effusion. No paranasal sinus fluid level. No calvarial fracture. IMPRESSION: 1. No acute intracranial abnormality. 2. Chronic microangiopathic changes with mild parenchymal atrophy. 3. Chronic lacunar infarcts in the left thalamus us Shahid Robins MD CT ORDERABLES Final Result * (ABNORMAL) PTT (04/12/2025 12:19 PM CDT) PTT 24.2(L) 25.1 - 35.4 seconds 04/12/2025 12:36 PM CDT [facility] Blood Venipuncture / Unknown 04/12/2025 12:19 PM CDT 04/12/2025 12:21 PM CDT Result Ricardo Robins MD HEMATOLOGY ORDERABLES Final Res ult Performing Organization Address City/State/RUST Co de Phone Number [facility] CLIA # [id number] [address] [place] [address] * PROTIME-INR (04/12/2025 12:19 PM CDT) PROTIME 13.1 12.1 - 14.3 Seconds 04/12/2025 12:36 PM CDT [facility] INR 1.0 0.9 - 1.1 04/12/2025 12:36 PM CDT [facility] Blood Venipuncture / Unknown 04/12/2025 12:19 PM CDT 04/12/2025 12:21 PM CDT us Shahid Robins MD HEMATOLOGY ORDERABLES Final Res ult [facility] CLIA # [id number] [address] [place] [address] * D-DIMER (04/12/2025 12:19 PM CDT) D-DIMER QUANT 0.16 <0.50 ug/mL FEU 04/12/2025 12:39 PM CDT [facility] Blood Venipuncture / Unknown 04/12/2025 12:19 PM CDT 04/12/2025 12:21 PM CDT Narrative [facility] - 04/12/2025 12:39 PM CDT D-Dimer assay cutoff value for exclusion [...] FEU 71-80 years: 0.71-0.80 ug/mL FEU us Shahid Robins MD HEMATOLOGY ORDERABLES Final Res ult [facility] CLIA # [id number] [address] [place] [address] * LACTIC ACID (04/12/2025 12:07 PM CDT) LACTIC ACID 1.5 <=2.0 mmol/L 04/12/2025 12:34 PM CDT [facility] Blood BLOOD SPECIMEN / Unknown Venipuncture / Unknown 04/12/2025 12:07 PM CDT 04/12/2025 12:15 PM CDT us Shahid Robins MD CHEMISTRY ORDERABLES Final Resu lt [facility] CLIA # [id number] [address] [place] [address] * (ABNORMAL) CBC WITH DIFFERENTIAL (04/12/2025 12:07 PM CDT) WBC 9.7 4.0 - 10.0 K/uL 04/12/2025 12:20 PM [facility] RBC 4.29 3.93 - 5.22 M/uL 04/12/2025 12:20 PM [facility] HEMOGLOBIN 11.2 11.2 - 15.7 g/dL 04/12/2025 12:20 PM [facility] HEMATOCRIT 33.6(L) 34.1 - 44.9 % 04/12/2025 12:20 PM [facility] MCV 78.3(L) 79.4 - 94.8 fL 04/12/2025 12:20 PM [facility] MCH 26.1 25.6 - 32.2 pg 04/12/2025 12:20 PM [facility] MCHC 33.3 32.2 - 35.5 g/dL 04/12/2025 12:20 PM [facility] RDW 18.4(H) 11.0 - 14.5 % 04/12/2025 12:20 PM [facility] RDW-STDEV 52.2 36.9 - 56.9 fL 04/12/2025 12:20 PM [facility] PLATELETS 393(H) 163 - 337 K/uL 04/12/2025 12:20 PM [facility] MPV 8.9(L) 10.0 - 14.8 fL 04/12/2025 12:20 PM [facility] NEUTROPHILS 66 34 - 71 % 04/12/2025 12:20 PM [facility] LYMPHOCYTES 26 19 - 52 % 04/12/2025 12:20 PM [facility] MONOCYTES 6 5 - 13 % 04/12/2025 12:20 PM CDT [facility] EOSINOPHILS 1 1 - 6 % 04/12/2025 12:20 PM CDT [facility] BASOPHILS 1 0 - 1 % 04/12/2025 12:20 PM CDT [facility] IMMATURE GRANULOCYTES 0 % 04/12/2025 12:20 PM CDT [facility] NEUTROPHIL ABSOLUTE 6.42(H) 1.56 - 6.13 K/uL 04/12/2025 12:20 PM CDT [facility] LYMPHOCYTE ABSOLUTE 2.51 1.20 - 3.40 K/uL 04/12/2025 12:20 PM CDT [facility] MONOCYTE ABSOLUTE 0.61(H) 0.24 - 0.36 K/uL 04/12/2025 12:20 PM CDT [facility] EOSINOPHIL ABSOLUTE 0.07 0.04 - 0.36 K/uL 04/12/2025 12:20 PM CDT [facility] BASOPHILS ABSOLUTE 0.08 0.01 - 0.08 K/uL 04/12/2025 12:20 PM CDT [facility] IMMATURE GRANULOCYTES ABSOLUTE 0.03 K/uL 04/12/2025 12:20 PM CDT [facility] Blood Venipuncture / Unknown 04/12/2025 12:07 PM CDT 04/12/2025 12:15 PM CDT us Shahid Robins MD HEMATOLOGY ORDERABLES Final Res ult [facility] CLIA # [id number] [address] [place] [address] * SEDIMENTATION RATE (04/12/2025 12:07 PM CDT) ESR (SEDIMENTATION RATE) 12 0 - 30 mm/Hr 04/12/2025 12:24 PM CDT [facility] Blood Venipuncture / Unknown 04/12/2025 12:07 PM CDT 04/12/2025 12:15 PM CDT Narrative [facility] - 04/12/2025 12:24 PM CDT Tube Lot: #[id number] Exp Date: 08/21/2026 QC1 LOT [id number] EXP.08/26/2025 QC2 LOT [id number] EXP.08/26/2025 us Shahid Robins MD HEMATOLOGY ORDERABLES Final Res ult Performing Organization Address City/[facility]/ZIP Co de Phone Number [id number] [address] [place] [address] * C-REACTIVE PROTEIN (04/12/2025 12:07 PM CDT) CRP 4.8 <5.0 mg/L 04/12/2025 12:40 PM CDT [facility] Blood Venipuncture / Unknown 04/12/2025 12:07 PM CDT 04/12/2025 12:15 PM CDT us Shahid Robins MD CHEMISTRY ORDERABLES Final Resu lt Performing Organization Address [facility]/ZIP Co de Phone Number [facility] CLIA # [id number] [address] [place] [address] * (ABNORMAL) TSH (04/12/2025 12:07 PM CDT) TSH 8.41(H) 0.27 - 4.20 uIU/mL 04/12/2025 12:42 PM CDT [facility] Blood Venipuncture / Unknown 04/12/2025 12:07 PM CDT 04/12/2025 12:15 PM CDT Result Ricardo Robins MD CHEMISTRY ORDERABLES Final Resu lt Performing Organization Address City/[facility]/ZIP Co de Phone Number [facility] CLIA # [id number] [address] [place] [address] * (ABNORMAL) BRAIN NATRIURETIC PEPTIDE, BNP OR PROBNP (04/12/2025 12:07 PM CDT) PROBNP, N TERMINAL 147(H) 0 - 125 pg/mL 04/12/2025 12:40 PM CDT [facility] Comment: INTERPRETIVE COMMENT based on diagnosis: Diagnostic [...] 900 pg/mL >75 years: >1800 pg/mL Blood Venipuncture / Unknown 04/12/2025 12:07 PM CDT 04/12/2025 12:15 PM CDT us Shahid Robins MD CHEMISTRY ORDERABLES Final Resu lt Performing Organization Address [facility]/RUST Co de Phone Number [facility] CLIA # [id number] [address] [place] [address] * MAGNESIUM LEVEL (04/12/2025 12:07 PM CDT) MAGNESIUM 2.1 1.6 - 2.4 mg/dL 04/12/2025 12:40 PM CDT [facility] Blood Venipuncture / Unknown 04/12/2025 12:07 PM CDT 04/12/2025 12:15 PM CDT us Shahid Robins MD CHEMISTRY ORDERABLES Final Resu lt Performing Organization Address [facility]/RUST Co de Phone Number [facility] CLIA # [id number] [address] [place] [address] * (ABNORMAL) COMPREHENSIVE METABOLIC PANEL (04/12/2025 12:07 PM CDT) Only the most recent of3 resultswithin the time period is included. SODIUM 135(L) 136 - 145 mmol/L 04/12/2025 12:40 PM [facility] POTASSIUM 4.1 3.5 - 5.1 mmol/L 04/12/2025 12:40 PM [facility] CHLORIDE 98 98 - 107 mmol/L 04/12/2025 12:40 PM [facility] CO2 25 22 - 29 mmol/L 04/12/2025 12:40 PM [facility] CALCIUM 10.0 8.8 - 10.2 mg/dL 04/12/2025 12:40 PM [facility] BUN 14 8 - 23 mg/dL 04/12/2025 12:40 PM [facility] CREATININE 0.87 0.51 - 0.95 mg/dL 04/12/2025 12:40 PM [facility] Comment:The GFR result is no t clinically significant on patients <18 or >70 years of age. GLUCOSE 162(H) 74 - 99 mg/dL 04/12/2025 12:40 PM [facility] TOTAL PROTEIN 7.2 6.6 - 8.7 g/dL 04/12/2025 12:40 PM [facility] ALBUMIN 4.3 3.5 - 5.2 g/dL 04/12/2025 12:40 PM [facility] BILIRUBIN TOTAL 0.3 0.0 - 1.2 mg/dL 04/12/2025 12:40 PM [facility] ALKALINE PHOSPHATASE 117(H) 35 - 104 U/L 04/12/2025 12:40 PM [facility] AST 27 0 - 35 U/L 04/12/2025 12:40 PM [facility] ALT 16 0 - 35 U/L 04/12/2025 12:40 PM [facility] GFR >60 mL/min/1.7 3 sq meter 04/12/2025 12:40 PM [facility] Comment:eGFR calculated with 2020 CKD-EPI equation. Vegetarian diet, extremely high or low muscle mass, and may affect results. Cystatin C with Glomerular Filtration Rate is a suitable alternative for these patients. ANION GAP 12 5 - 20 mmol/L 04/12/2025 12:40 PM CDT [facility] Blood Venipuncture / Unknown 04/12/2025 12:07 PM CDT 04/12/2025 12:15 PM CDT us Shahid Robins MD CHEMISTRY ORDERABLES Final Resu lt [facility] CLIA # [id number] [address] [place] [address] * ECHO COMPLETE - CONTRAST AND STRAIN IF INDICATED (03/03/2025 1:03 PM CDT) us Abstract Provider US ORDERABLES Final Result * US CAROTID DOPPLER (03/01/2025 10:24 AM CDT) Anatomical Region Laterality Modality Neck Ultrasound 03/01/2025 9:58 AM CDT Narrative 03/05/2025 3:01 PM CDT [facility] [address] [place] [address] [address] [place] [address] Noninvasive Vascular Lab Cerebrovascular Exam Carotid Duplex Patient: Teri Graham Study ID: US CAROTID DOPPL Gender: F : 1950 Age: 75 Room: Height: 162.6cm Weight: 60.4kg BSA: 1.66m^2 Pt status: Outpatient Study Date: 03/01/2025 Study Time: 09:58:11 AM BSA: 1.66m^2 Ordering: Gonzalo Munson Interpreting:John Mejia State Comptroller: Elva Madden Indications: Stenosis of right carotid. Summary The vertebral arteries are patent with normal antegrade flow. Impression: No hemodynamically significant stenosis obtained on today's exam. Study data: Carotid duplex study. Complete study and Doppler flow study including spectral analysis, color and miramontes scale imaging. Height: 162.6cm. Height: 64in. Weight: 60.4kg. Weight: 133.2lb. BMI: 22.9kg/m^2. BSA: 1.66m^2. Location: Vascular laboratory. Patient status: Outpatient. Study status: Routine. Procedure: A vascular evaluation was performed. Image quality was fair. The study was technically limited due to body habitus. Arterial flow: - Right CCA proximal: Right CCA proximal 0.8m/sec 0.22m/sec - Right CCA mid: Right CCA mid 0.96m/sec 0.32m/sec - Right CCA distal: Right CCA distal 0.81m/sec 0.26m/sec - Right ICA proximal: Right ICA proximal 1.6m/sec 0.38m/sec 1.66 1.2 - Right ICA mid: Right ICA mid 1.3m/sec 0.33m/sec 1.36 1.03 - Right ICA distal: Right ICA distal 1.06m/sec 0.34m/sec 1.11 1.06 - Right ECA: Right ECA 1.04m/sec - Right vertebral: Right vertebral 0.41m/sec 0.14m/sec Antegrade flow - Left CCA proximal: Left CCA proximal 0.99m/sec 0.34m/sec - Left CCA mid: Left CCA mid 1.12m/sec 0.32m/sec - Left CCA distal: Left CCA distal 1.12m/sec 0.32m/sec - Left ICA proximal: Left ICA proximal 1.06m/sec 0.32m/sec 0.95 0.94 - Left ICA mid: Left ICA mid 0.99m/sec 0.33m/sec 0.88 0.96 - Left ICA distal: Left ICA distal 1.27m/sec 0.4m/sec 1.13 1.17 - Left ECA: Left ECA 1.14m/sec - Left vertebral: Left vertebral 0.32m/sec 0.12m/sec Antegrade flow [facility] is accredited with the Intersocietal Commission for the Accreditation of Vascular Laboratories (ICAVL) Prepared and Electronically Authenticated John Mejia Confirmed 03/05/2025 15:01 Procedure Note John Mejia MD - 03/05/2025 [facility] [address] [address] Noninvasive Vascular Lab Cerebrovascular Exam Carotid Duplex Patient: Teri Graham Study ID: US CAROTID DOPPL Gender: F : 1950 Age: 75 Room: Height: 162.6cm Weight: 60.4kg BSA: 1.66m^2 Pt status: Outpatient Study Date: 03/01/2025 Study Time: 09:58:11 AM BSA: 1.66m^2 Ordering: Gonzalo Munson Interpreting:John Mejia State Comptroller: Elva Madden Indications: Stenosis of right carotid. Summary The vertebral arteries are patent with normal antegrade flow. Impression: No hemodynamically significant stenosis obtained on today's exam. Study data: Carotid duplex study. Complete study and Doppler flowstudy including spectral analysis, color and miramontes scale imaging. Height:162.6cm. Height: 64in. Weight: 60.4kg. Weight: 133.2lb. BMI: 22.9kg/m^2. BSA: 1.66m^2. Location: Vascular laboratory. Patient status:Outpatient. Study status: Routine. Procedure: A vascular evaluation wasperformed. Image quality was fair. The study was technically limited due to bodyhabitus. Arterial flow: - Right CCA proximal: Right CCA proximal 0.8m/sec 0.22m/sec - Right CCA mid: Right CCA mid 0.96m/sec 0.32m/sec - Right CCA distal: Right CCA distal 0.81m/sec 0.26m/sec - Right ICA proximal: Right ICA proximal 1.6m/sec 0.38m/sec 1.66 1.2 - Right ICA mid: Right ICA mid 1.3m/sec 0.33m/sec 1.36 1.03 - Right ICA distal: Right ICA distal 1.06m/sec 0.34m/sec 1.11 1.06 - Right ECA: Right ECA 1.04m/sec - Right vertebral: Right vertebral 0.41m/sec 0.14m/sec Antegrade flow - Left CCA proximal: Left CCA proximal 0.99m/sec 0.34m/sec - Left CCA mid: Left CCA mid 1.12m/sec 0.32m/sec - Left CCA distal: Left CCA distal 1.12m/sec 0.32m/sec - Left ICA proximal: Left ICA proximal 1.06m/sec 0.32m/sec 0.95 0.94 - Left ICA mid: Left ICA mid 0.99m/sec 0.33m/sec 0.88 0.96 - Left ICA distal: Left ICA distal 1.27m/sec 0.4m/sec 1.13 1.17 - Left ECA: Left ECA 1.14m/sec - Left vertebral: Left vertebral 0.32m/sec 0.12m/sec Antegrade flow [facility] is accredited withthe Intersocietal Commission for the Accreditation of Vascular Laboratories (ICAVL) Prepared and Electronically Authenticated John Mejia Confirmed 03/05/2025 15:01 Gonzalo Munson NP US ORDERABLES Final Result * MAMMO SCREEN BILAT W OR WO CAD (06/21/2024) Anatomical Region Laterality Modality Breast Bilateral Mammography Abstract Provider MAMMO ORDERABLES Edited Result - Final * ENDOSCOPY, COLON, SCREENING (08/28/2019 12:00 AM CARE AID) Sgf Scanning GI PROCEDURE ORDERABLES Final Re sult from Last 3 Months or Most Recently Relevant to Health Maintenance Insurance [place] [address] [place] [address] DUAL COMPLETE HMO [facility] [id number] Advance Directives For more information, please contact: [phone] * Full Code (Latest Code Status on [...] 12:06 AM 11/15/2021 6:55 PM Care Teams Track Worker Relationship Specialty Start Date End Date David Walker MD [address] [phone] PCP - General Family Practice 01/08/20
--- OUTSIDE RECORDS SUMMARY | 2025-05-06 18:27 | XMS_ITS | Encounter Summary ---
Author Organization [facility] Address [address] [place] [address] Care Team Providers Care Groundwater Consultant Name Role Phone David Walker MD Primary Care Provider [phone] Encounter Details Date Type Department Care Team (Latest Contact Info) Description 03/06/2010 Ancillary Orders [facility] Cardiac Thoracic Vascular Surg [place] [address] [place] [address] Henry, Anjali A, MANAGER DIALYSIS NO ADDRESS ON FILE Varicose Veins of Lower Extremities with Other Complications Social History Tobacco Use Types Packs/Day Years Used Date Smoking Tobacco: Never Assessed Comments Unknown Sex and Gender Information Value Date Recorded Sex Assigned at Not on file Legal Sex Female 5:37 AM AGRICULTURAL EXTENSION OFFICER Gender Identity Not on file Sexual Orientation Not on file documented as of this encounter Plan of Treatment Not on file documented as of this encounter Results * US VENOUS DOPPLER LEG BILATERAL (03/19/2010 1:51 PM CDT) Anatomical Region Laterality Modality Lower Extremity Ultrasound 03/19/2010 12:5 7 PM CDT Narrative 03/20/2010 8:[address] [facility] [address] [place] [address] Noninvasive Vascular Lab Lower Extremity Vein mapping for Reflux Patient: Teri Graham Study ID: US VENOUS DOPPLE Gender: F : 1950 Age: 60 Room: Height: Weight: BSA: Pt status: Outpatient Study Date: 03/19/2010 Study Time: 12:57 PM BSA: Ordering: Anjali Figueroa Interpreting:Corazon Dalton MD RIMA FACS Solder Cream Maker: Daxa Cervantes RVT Indications: 454.9 Varicose veins. [...] arch - Reflux greater than 4 sec [facility] is accredited with the Intersocietal Commission for the Accreditation of Vascular Laboratories (ICAVL) Prepared and Electronically Authenticated Corazon Dalton MD, MBA FACS Confirmed 03/20/2010 08:51 Procedure Note Corazon Dalton MD - 03/20/2010 [facility] [address] [place] [address] [place] [address] Noninvasive Vascular Lab Lower Extremity Vein mapping for Reflux Patient: Teri Graham Study ID: US VENOUS DOPPLE Gender: F : 1950 Age: 60 Room: Height: Weight: BSA: Pt status: Outpatient Study Date: 03/19/2010 Study Time: 12:57 PM BSA: Ordering: Anjali Figueroa Interpreting:Corazon Dalton MD, MBA FACS Solder Cream Maker: Daxa Cervantes RVT Indications: 454.9 Varicose veins. [...] arch - Reflux greater than 4 sec [facility] is accredited with [facility] Commission for the Accreditation of Vascular Laboratories (ICAVL) Prepared and Electronically Authenticated Corazon Dalton MD RIMA FACS Confirmed 03/20/2010 08:51 us Anjali A Henry [facility] US ORDERABLES Final Result documented in this encounter Visit Diagnoses Diagnosis Varicose veins of lower extremities with other complications documented in this encounter Additional Health Concerns Infection Onset Date Last Indicated Resolved Time R/O COVID-06/04/2020 06/04/2020 06/06/2020 1:16 AM CDT COVID-19 06/04/2020 06/04/2020 07/04/2020 8:09 PM AGRICULTURAL EXTENSION OFFICER documented as of this encounter Care Teams Groundwater Consultant Relationship Specialty Start Date End Date David Walker MD [address] [facility] [address] [place] [address] PCP - General Family Practice 01/08/20 documented as of this encounter
--- OUTSIDE RECORDS SUMMARY | 2025-05-06 18:27 | XMS_ITS | Encounter Summary ---
Author Organization [facility] Address [address] [place] [address] Care Team Providers Care Religious Assistant Name Role Phone David Walker MD Primary Care Provider [phone] Encounter Details Date Type Department Care Team (Latest Contact Info) Description 05/29/2001 Outpatient Historical [facility] Family Medicine- [facility] [address] [place] [address] Xiomara Lira MD NO ADDRESS ON FILE Acute bronchitis (Primary Dx) Social History Tobacco Use Types Packs/Day Years Used Date Smoking Tobacco: Never Assessed Comments Unknown Sex and Gender Information Value Date Recorded Sex Assigned at Not on file Legal Sex Female 5:37 AM WAFER MOUNTER Gender Identity Not on file Sexual Orientation Not on file documented as of this encounter Plan of Treatment Not on file documented as of this encounter Visit Diagnoses Diagnosis Acute bronchitis- Primary documented in this encounter Additional Health Concerns Infection Onset Date Last Indicated Resolved Time R/O COVID-19 06/04/2020 06/04/2020 06/06/2020 1:16 AM CDT COVID-19 06/04/2020 06/04/2020 07/04/2020 8:09 PM WAFER MOUNTER documented as of this encounter Care Teams Religious Assistant Relationship Specialty Start Date End Date David Walker MD [address] [facility] [address] [place] [phone] PCP - General Family Practice 01/08/20 documented as of this encounter
--- OUTSIDE RECORDS SUMMARY | 2025-05-06 18:27 | XMS_ITS | Encounter Summary ---
Author Organization [facility] Address [address] [place] [address] Care Team Providers Care Grievance Coordinator Name Role Phone David Walker MD Primary Care Provider [phone] [phone] Encounter Details Date Type Department Care Team (Latest Contact Info) Description 10/15/2004 Outpatient Historical [facility] [address] [place] [address] Jaime Verdugo, [address] [place] [phone] (Work) CERVICAL DISC DEGEN (Primary Dx) Social History Tobacco Use Types Packs/Day Years Used Date Smoking Tobacco: Never Assessed Comments Unknown Sex and Gender Information Value Date Recorded Sex Assigned at Not on file Legal Sex Female 5:37 AM ELEMENTARY EDUCATION TUTOR Gender Identity Not on file Sexual Orientation Not on file documented as of this encounter Plan of Treatment Not on file documented as of this encounter Visit Diagnoses Diagnosis Degeneration of cervical intervertebral disc- Primary documented in this encounter Additional Health Concerns Infection Onset Date Last Indicated Resolved Time R/O COVID-19 06/04/2020 06/04/2020 06/06/2020 1:16 AM CDT COVID-19 06/04/2020 06/04/2020 07/04/2020 8:09 PM ELEMENTARY EDUCATION TUTOR documented as of this encounter Care Teams Grievance Coordinator Relationship Specialty Start Date End Date David Walker MD [address] [phone] PCP - General Family Practice 01/08/20 documented as of this encounter
--- OUTSIDE RECORDS SUMMARY | 2025-05-06 18:27 | XMS_ITS | Encounter Summary ---
Author Organization [facility] Address [address] [place] [address] Care Team Providers Care Journalism Professor Name Role Phone David Walker MD Primary Care Provider [phone] Encounter Details Date Type Department Care Team (Late st Contact Info) Description 09/25/2004 Outpatient Historical [facility] Ambrosio Donovan MD NO ADDRESS ON FILE Social History Tobacco Use Types Packs/Day Years Used Date Smoking Tobacco: Never Assessed Comments Unknown Sex and Gender Information Value Date Recorded Sex Assigned at Not on file Legal Sex Female 5:37 AM SENIOR JAVA SOFTWARE ENGINEER Gender Identity Not on file Sexual Orientation Not on file documented as of this encounter Plan of Treatment Not on file documented as of this encounter Visit Diagnoses Not on filedocumented in this encounter Additional Health Concerns Infection Onset Date Last Indicated Resolved Time R/O COVID-19 06/04/2020 06/04/2020 06/06/2020 1:16 AM CDT COVID-19 06/04/2020 06/04/2020 07/04/2020 8:09 PM SENIOR JAVA SOFTWARE ENGINEER documented as of this encounter Care Teams Journalism Professor Relationship Specialty Start Date End Date David Walker MD [address] [phone] PCP - General Family Practice 01/08/20 documented as of this encounter
--- OUTSIDE RECORDS SUMMARY | 2025-05-06 18:27 | XMS_ITS | Encounter Summary ---
Author Organization [facility] Address [address] [place] [address] Care Team Providers Care Supervisor Assembly And Packing Name Role Phone David Walker MD Primary Care Provider [phone] [phone] Encounter Details Date Type Department Care Team (Latest Contact Info) Description 04/19/2001 Outpatient Historical [facility] Family Medicine- [facility] [address] [place] [address] Jomar Curry DO NO ADDRESS ON FILE Acute pharyngitis (Primary Dx); Obstructive chronic bronchitis with exacerbation (CMS/HCC) Social History Tobacco Use Types Packs/Day Years Used Date Smoking Tobacco: Never Assessed Comments Unknown Sex and Gender Information Value Date Recorded Sex Assigned at Not on file Legal Sex Female 5:37 AM VIDEO ARCADE MANAGER Gender Identity Not on file Sexual Orientation [...] CDT COVID-19 06/04/2020 06/04/2020 07/04/2020 8:09 PM VIDEO ARCADE MANAGER documented as of this encounter Care Teams Supervisor Assembly And Packing Relationship Specialty Start Date End Date David Walker MD [address] [phone] PCP - General Family Practice 01/08/20 documented as of this encounter
--- OUTSIDE RECORDS SUMMARY | 2025-05-06 18:27 | XMS_ITS | Encounter Summary ---
Author Organization [facility] Address [address] [place] [address] Care Team Providers Care Addiction Nurse Name Role Phone Lee Curtis MD Unavailable [phone] David Walker MD Primary Care Provider [phone] Encounter Details Date Type Department Care Team (Late st Contact Info) Description 05/03/2025 Telephone [facility] Radiology [address] [place] [address] Jessa Price RN Social History Tobacco Use Types Packs/Day [...] encounter Miscellaneous Notes * Telephone Encounter - Jessa Price RN - 05/03/2025 1:53 PM CDT Called pt to schedule biopsy and pt's phone rang for an extended period of time and there was no VMsetup. documented in this encounter Plan of Treatment Not on file documented as of this encounter Visit Diagnoses Not on filedocumented in this encounter Care Teams Addiction Nurse Relationship Specialty Start Date End Date David Walker MD [address] [address] PCP - General 06/19/20 Lee Curtis MD Radiation Oncologist Radiation Oncology 03/06/18 documented as of this encounter
--- OUTSIDE RECORDS SUMMARY | 2025-05-06 18:27 | XMS_ITS | Encounter Summary ---
Author Organization [facility] Address [address] [place] [address] Care Team Providers Care Public Address System Operator Name Role Phone David Walker MD Primary Care Provider [phone] Encounter Details Date Type Department Care Team (Latest Contact Info) Description 09/24/2004 Outpatient Historical [facility] [address] [place] [address] [address], [facility] HEADACHE (Primary Dx) Social History Tobacco Use Types Packs/Day Years Used Date Smoking Tobacco: Never Assessed Comments Unknown Sex and Gender Information Value Date Recorded Sex Assigned at Not on file Legal Sex Female 5:37 AM INSPECTOR SCALES Gender Identity Not on file Sexual Orientation Not on file documented as of this encounter Plan of Treatment Not on file documented as of this encounter Visit Diagnoses Diagnosis Headache(784.0)- Primary Headache documented in this encounter Additional Health Concerns Infection Onset Date Last Indicated Resolved Time R/O COVID-19 06/04/2020 06/04/2020 06/06/2020 1:16 AM CDT COVID-19 06/04/2020 06/04/2020 07/04/2020 8:09 PM INSPECTOR SCALES documented as of this encounter Care Teams Public Address System Operator Relationship Specialty Start Date End Date David Walker MD [address] [facility] [address] [place] [phone] PCP - General Family Practice 01/08/20 documented as of this encounter
--- OUTSIDE RECORDS SUMMARY | 2025-05-06 18:27 | XMS_ITS | Encounter Summary ---
Author Organization [facility] Address [address] [place] [address] Care Team Providers Care Station Worker Name Role Phone David Walker MD Primary Care Provider [phone] Encounter Details Date Type Department Care Team (Latest Contact Info) Description 12/02/[address] [facility] Family [facility]- [facility] [address] [place] [address] Jomar Curry DO NO ADDRESS ON FILE ACUTE BRONCHITIS (Primary Dx) Social History Tobacco Use Types Packs/Day Years Used Date Smoking Tobacco: Never Assessed Comments Unknown Sex and Gender Information Value Date Recorded Sex Assigned at Not on file Legal Sex Female 5:37 AM WELFARE ELIGIBILITY WORKER Gender Identity Not on file Sexual Orientation Not on file documented as of this encounter Plan of Treatment Not on file documented as of this encounter Visit Diagnoses Diagnosis Acute bronchitis- Primary documented in this encounter Additional Health Concerns Infection Onset Date Last Indicated Resolved Time R/O COVID-19 06/04/2020 06/04/2020 06/06/2020 1:16 AM CDT COVID-19 06/04/2020 06/04/2020 07/04/2020 8:09 PM WELFARE ELIGIBILITY WORKER documented as of this encounter Care Teams Station Worker Relationship Specialty Start Date End Date David Walker MD [address] [phone] PCP - General Family Practice 01/08/20 documented as of this encounter
--- OUTSIDE RECORDS SUMMARY | 2025-05-06 18:27 | XMS_ITS | Encounter Summary ---
Author Organization [facility] Address [address] [place] [address] Care Team Providers Care Insulating Machine Operator Name Role Phone David Walker MD Primary Care Provider [phone] Encounter Details Date Type Department Care Team (Latest Contact Info) Description 01/20/1999 Outpatient Historical [facility] Family Medicine- [facility] [address] [place] [address] Jomar Curry DO NO ADDRESS ON FILE Acute upper respiratory infections of unspecified site (Primary Dx) Social History Tobacco Use Types Packs/Day Years Used Date Smoking Tobacco: Never Assessed Comments Unknown Sex and Gender Information Value Date Recorded Sex Assigned at Not on file 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
--- OUTSIDE RECORDS SUMMARY | 2025-05-06 18:27 | XMS_ITS ---
Author Organization [facility] Address [address] [place] [address] Care Team Providers Care Senior Treasury Consultant Name Role Phone David Walker MD Primary Care Provider [phone] Active Problems Problem Noted Date Diagnosed Date [...] Automatic Entry Manual Entr y Effective Dose 22.6 mSv 15.8 mSv 6.8 mSv Total DLP 6,366.6 DLP 6,043.6 DLP 323 DLP CTDIvol Max 433.2 mGy 425.8 mGy 7.4 mGy CTDIvol Min 389.6 mGy 382.2 mGy 7.4 mGy Resolved Problems Problem Noted Date Diagnosed Date Resolved Date Gastroenteritis 01/11/2025 01/11/2025 Focal neurological deficit 11/25/2021 0 12/01/2021 Influenza with pneumonia 11/15/202109/2021 Viral pneumonia 11/14/2021 12/21/2021
--- OUTSIDE RECORDS SUMMARY | 2025-05-06 18:27 | XMS_ITS | Encounter Summary ---
Author Organization [facility] Address [address] [place] [address] Care Team Providers Care Hot Plate Plywood Press Operator Name Role Phone David Walker MD Primary Care Provider [phone] [phone] Encounter Details Date Type Department Care Team (Late st Contact Info) Description 01/25/2007 Emergency [facility] Emergency Department [address] [place] [address] Alexa Ly MD NO ADDRESS ON FILE Unspecified Chest Pain (Primary Dx) Social History Tobacco Use Types Packs/Day Years Used Date Smoking Tobacco: Never Assessed Comments Unknown Sex and Gender Information Value Date Recorded Sex Assigned at Not on file Legal Sex Female 5:37 AM OCCUPATIONAL THERAPIST ASSISTANTS Gender Identity Not on file Sexual Orientation [...] MD HEMATOLOGY ORDERABLES Edited Performing Organization Address [facility] Phone Number INTERFACE SYSTEM Refer to clinic/hospital [...] MD HEMATOLOGY ORDERABLES Edited Performing Organization Address [facility] Phone Number INTERFACE SYSTEM Refer to clinic/hospital [...] MD CHEMISTRY ORDERABLES Edited Performing Organization Address [facility] Co de Phone Number INTERFACE SYSTEM Refer to clinic/hospital department documented in this encounter Visit Diagnoses Diagnosis Chest pain, unspecified- Primary documented in this encounter Additional Health Concerns Infection Onset Date Last Indicated Resolved Time R/O COVID-19 06/04/2020 06/04/2020 06/06/2020 1:16 AM CDT COVID-19 06/04/2020 06/04/2020 07/04/2020 8:09 PM OCCUPATIONAL THERAPIST ASSISTANTS documented as of this encounter Care Teams Hot Plate Plywood Press Operator Relationship Specialty Start Date End Date David Walker MD [address] [phone] PCP - General Family Practice 01/08/20 documented as of this encounter
--- OUTSIDE RECORDS SUMMARY | 2025-05-06 18:27 | XMS_ITS | Encounter Summary ---
Author Organization [facility] Address [address] [place] [address] Care Team Providers Care Mess Cook Name Role Phone Lee Curtis MD Unavailable [phone] David Walker MD Primary Care Provider [phone] Encounter Details Date Type Department Care Team (Late st Contact Info) Description 05/06/2025 Telephone [facility] Radiology [address] [place] [address] Jeniffer Tena RN Social History Tobacco Use [...] Encounter - Jeniffer Tena RN - 05/06/2025 10:30 AM CDT Referral from Dr. Sanchez for US Guided Core Biopsy Scheduled as requested 05/16/25 at 1:00 with arrival 30 minutes prior to procedure Location: [facility], [address] [place] [address]. [place] on 3rd floor Radiology Registration Procedure Instructions: Please take all your normal medicines. Continue to eat and drink normally. You do not need someone to drive you. Patient given instructions, verbalized understanding. documented in this encounter Plan of Treatment Not on file documented as of this encounter Visit Diagnoses Not on filedocumented in this encounter Care Teams Mess Cook Relationship Specialty Start Date End Date David Walker MD [address] [phone] PCP - General 06/19/20 Lee Curtis MD Radiation Oncologist Radiation Oncology 03/06/18 documented as of this encounter
[2025-05-06 18:45] VITALS: BP 136/87; PULSE 92; O2SAT 96
--- NOTE | 2025-05-06 18:45 | XRR_ITS ---
PROCEDURE INFORMATION: Exam: XR Chest Exam date and time: 05/06/2025 6:51 PM Age: 75 years old Clinical indication: Other: Weakness; Prior surgery; Surgery date: 6+ months; Surgery type: Lung; Additional info: Possible sepsis TECHNIQUE: Imaging protocol: Radiologic exam of the chest. Views: 1 view. COMPARISON: CR (CHEST, ) 03/03/2025 6:06 AM FINDINGS: Lungs: There are findings of peripheral areas of airspace abnormality in the right upper and right lower lobes newly developed. There has been near-complete resolution of opacity in the left lower lobe. The possibility of atypical viral pneumonia could be consideration further workup recommended. The opacities in the right upper and right lower lobe appear to represent new findings. Pleural spaces: There are no significant large pleural effusions. There is no pneumothorax Heart/Mediastinum: See Bones/joints finding. Bones/joints: Heart bony structures stable. XR/XR chest 1V portable [id number] IMPRESSION: New opacities in the periphery of the right upper and right lower lobes as well as near complete resolution of prior opacity in the left lung base findings could be related to multilobar pneumonia atypical viral pneumonia could be consideration in the appropriate scenario correlate and follow-up as indicated.
--- NOTE | 2025-05-06 18:49 | ECG_ITS ---
[facility] Date: 2025-05-06 Pat Name: Teri Graham Department: Room: Gender: Female Community Education Coordinator: : 1950 Requested By: Sohan Hodges Order Number: [id number] Jacob MD: Luann Morrow M.D. Measurements Intervals [place] Rate: 96 P: 88 NC: 161 QRS: 31 QRSD: 81 T: 91 QT: 339 QTc: 428 Interpretive Statements SINUS RHYTHM Compared to ECG 03/02/2025 04:09:30 No significant changes Electronically Signed On 05-07-2025 18:09:27 CDT by Luann Morrow M.D. [email or web address]
--- NOTE | 2025-05-06 18:51 | CTR_ITS ---
PROCEDURE INFORMATION: Exam: CTA Chest With Contrast Exam date and time: 05/06/2025 8:06 PM Age: 75 years old Clinical indication: Cough; Additional info: HX lung CA, HX recurrent pneumonia, recent pet new lesions February, r/p pe and eval for TECHNIQUE: Imaging protocol: Computed tomographic angiography of the chest with contrast. Exam focused on the arteries. 3D rendering (Not supervised by radiologist): MIP and/or 3D reconstructed images were created by the technologist. Radiation optimization: All CT scans at this facility use at least one of these dose optimization techniques: automated exposure control; mA and/or kV adjustment per patient size (includes targeted exams where dose is matched to clinical indication); or iterative reconstruction. Contrast material: OMNIPAQUE 350; Contrast volume: 100 ml; Contrast route: INTRAVENOUS (IV); COMPARISON: CT angio chest PE protcl [id number] 03/02/2025 10:11 AM RADIATION DOSE METRICS: Total DLP (mGy-cm): 265.93 FINDINGS: Pulmonary arteries: There is no acute or chronic pulmonary embolism. Aorta: Unremarkable. No aortic aneurysm. No aortic dissection. Lungs: Patient is status post right upper and right middle lobectomies. There is demonstration of centrilobular lucencies throughout the lung parenchyma compatible with changes of emphysema . There is bronchial wall thickening mucous retention within bronchi in the superior and inferior aspect right lower lobe with mucous impaction linear branching opacities and peripheral areas of airspace early consolidation. The abnormalities appear significantly progressed compared to prior exam. There continues to be mucous retention and endobronchial material along the left lower lobe bronchus which demonstrate thickening and association with spiculated soft tissue density. The airspace abnormality and the abnormality in the left inferior pulmonary hilum appears to be less confluence compared to prior CT pulmonary angiogram of 03/02/2000 25, there has been interval resolution of left-sided pleural effusion. Findings could be related to patient's history of lung malignancy with the possibility of resolving postobstructive pneumonia. Pleural spaces: Unremarkable. No pneumothorax. No pleural effusion. Heart: There are findings of mitral annular calcification present no coronary artery calcifications. Lymph nodes: Unremarkable. No enlarged lymph nodes. Gallbladder and biliary ducts: Patient is status post cholecystectomy. Bones/joints: Unremarkable. No acute fracture. Soft tissues: Unremarkable. CT/CT angio chest PE protcl [id number] IMPRESSION: 1. No acute or chronic pulmonary embolism or aneurysm. 2. Findings of emphysema. 3. Patient is status post right upper and right middle lobectomies with changes in the right lower lobe compatible with a endobronchial pattern of airspace disease either related to infectious bronchitis or developing infectious bronchopneumonia correlate and follow-up as indicated. 4. Post cholecystectomy status. COMMENTS: The presence of pulmonary emphysema on CT is an independent risk factor for lung cancer. In the absence of a history or active diagnosis of lung cancer, it is recommended that this patient with emphysema be evaluated for enrollment in a low dose CT lung cancer screening program.
[2025-05-06 18:59] LABS: Hematocrit 31.9 % (36-47); Hemoglobin 10.40 g/dL (11.27-16.99); Mean Corpuscular HGB Conc 32.6 g/dL (30-55); Mean Corpuscular Hemoglobin 25.9 pg (27-33); Mean Corpuscular Volume 79.6 fl (85-98); Nucleated Red Blood Cells % 0 %; Platelet Count 351 10^3/cmm (157-399); Red Blood Count 4.01 10^6/uL (3.85-5.65); White Blood Count 25.46 10^3/uL (3.29-11.43)
[2025-05-06 19:18] LABS: INR 0.98 (0.8-1.2); Prothrombin Time 13.70 SECONDS (12.1-14.9)
[2025-05-06 19:19] LABS: Partial Thromboplastin Time 27.0 SECONDS (23.9-36.7)
[2025-05-06 19:19] LABS: Base Excess VBG 1.4 mmol/L (-3.0-3.0); Blood Gas Allen Test Pos; Blood Gas Operator Identificat gerca; Blood Gas Sample Type Venous; HCO3 VBG 26.7 mmol/L (24-28); PCO2 VBG 44.1 mmHg (41-51); PO2 VBG 39.4 mmHg (25-40); Venous Blood Gas Hematocrit 33.9 % (37-47); pH VBG 7.39 (7.32-7.42)
[2025-05-06] MEDS: methylPREDNISolone sod succ 125 mg/2 mL INJ IVP (19:25)
[2025-05-06 19:26] LABS: Lactic Sepsis W/Reflex 0.9 mmol/L (0.5-2.2)
[2025-05-06 19:37] LABS: Procalcitonin 0.19 ng/mL (0-0.5)
[2025-05-06] MEDS: cefepime 1,000 mg SDV 1000 MG IVP (19:45)
[2025-05-06 19:48] LABS: Alanine Aminotransferase 12 U/L (0-33); Albumin Level 4.1 g/dL (3.5-5.2); Alkaline Phosphatase 113 U/L (35-105); Anion Gap 23.2 (5-19); Aspartate Amino Transferase 19 U/L (0-32); Blood Urea Nitrogen 12 mg/dL (8-23); Calcium 8.9 mg/dL (8.5-10.5); Carbon Dioxide 20 mmol/L (22-29); Chloride 87 mmol/L (98-107); Creatinine Clr Calc Pharmacy 52.8619; Globulin 2.5 g/dL (1.3-4.6); Glucose 106 mg/dL (65-115); Magnesium 1.8 mg/dL (1.7-2.3); Osmolality Calculated 262 mOsm/kg (285-295); Potassium 4.2 mmol/L (3.5-5.1); Sodium 126 mmol/L (136-145); Total Protein 6.6 g/dL (6.6-8.7)
[2025-05-06] MEDS: diphenhydrAMINE 50 mg/mL SDV 1mL IVP (19:57)
--- NOTE | 2025-05-06 20:07 | ED_ITS ---
HPI - Weakness 2 General: Chief complaint: Weakness Stated complaint: Weakness Time Seen by Provider: 05/06/25 18:37 History of Present Illness: 75-year-old female history of lung cance r off chemo/radiation since 2017, recently with 3 episodes of significant pneumonia this year including double pneumonia requiring ICU admission this summer, during or shortly after this admission had a PET scan showing new lesions with FDG G avid uptake in some lymph nodes as well as a possible residual mass concerning for endobronchial lesion, was following with pulmonology which was planning an endobronchial ultrasound and bronchoscopy however patient did not attend the scheduled procedure on the , she did subsequently see pulmonology 2 weeks ago and reportedly has an appointment with oncology for this week at [facility] to discuss next steps. She has a remote history of throat cancer in 2017. She reports that she developed over the last 3 or 4 days progressively worsening shortness of breath and cough, she reports her cough is chronic but is possibly slightly worse, on arrival to the ER patient was hypoxic to the low 80s, she denies any reported fever, she does report increasing fatigue and inability to ambulate. She denies leg swelling or calf tenderness. Related Data Home Medications ?Medication ?Instructions ?Recorded ?Confirmed albuterol sulfate 2.5 mg/3 mL 2.5 mg continuous nebuli zation Q6H 03/02/25 04/23/25 (0.083 %) solution for nebulization PRN Shortness Of B reath atorvastatin 40 mg tablet 40 mg PO BEDTIME 03/02/25 levothyroxine 75 mcg tablet 75 mcg PO QAM 03/02/2510/16 mometasone-formoterol HFA 200 2 puff inhalation BID 04/23/25 mcg-5 mcg/actuation aerosol inhaler (Dulera) sertraline 100 mg tablet 100 mg PO DAILY 03/02/2510/16 pantoprazole 40 mg tablet,delayed 40 mg PO DAILY 03/1904/23/25 release (Protonix) bisacodyl 5 mg tablet,delayed 5 mg PO DAILY PRN Abdomi nal 04/19/25 04/23/25 release (Dulcolax (bisacodyl)) Discomfort clopidogrel 75 mg tablet 75 mg PO DAILY 08/29/25 09/0 2/25 omeprazole 20 mg capsule,delayed 20 mg PO DAILY 04/23/25 release Allergies Allergy/AdvReac Type Severity Reaction Status Date / Time Iodinated Contrast Media Allergy Unknown Verified 04/23/25 08:14 PFS ED 2 PFSH: Medical History H/O adenomatous polyp of colon 2016: colon polyps , recommended 3 year follow up COPD exacerbation Anxiety Malignant neoplasm of unspecified part of unspecified bronchus or lung Herpes zoster without complication Cancer, epiglottis Cervical cancer Vitamin D deficiency Claustrophobia Feeding by G-tube Encounter for colonoscopy due to history of colonic polyp Surgical History H/O colonoscopy 08/2019: normal , f/u 10 years History of tubal ligation History of neck surgery Status post lung surgery History of laparoscopic cholecystectomy Family History Other Tuberculosis Social History Smoking and tobacco/nicotine status: former use of tobacco/nicotine (quit in 2016 smoked 2ppd) Quit status (tobacco/nicotine): has quit using Year quit tobacco: 2016 Former quit date comment: 2 ppd X 48 years Second hand smoke exposure: No Alcohol intake: current Alcohol intake frequency: few times a week Substance/Drug Use: never Lives independently: Yes Household members: none Physical Exam 2 Const: COMMON NORMALS: patient oriented x3 GENERAL APPEARANCE: ill appearing ORIENTATION/CONSCIOUSNESS: Yes awake, Yes oriented to person, Yes oriented to place and Yes oriented to time HENMT: COMMON NORMALS: normocephalic and atraumatic HEAD & SCALP: n ormocephalic and atraumatic Eye: COMMON NORMALS: Equal, round and reactive pupils present and EOMs intact bilaterally PUPIL: Yes Equal, round and reactive pupils present Neck/C-Spine: COMMON NORMALS: full ROM and supple Chest: COMMONS NORMALS: normal inspection of the chest and normal palpation of entire chest wall Resp: COMMON NORMALS: No retractions and No use of accessory muscles EFFORT & INSPECTION: Yes tachypneic, No respiratory distress and Yes Actively coughing AUSCULTATION: rales on the right and on the left and rhonchi right lower Cardio: COMMON NORMALS: regular rhythm and No murmurs present (Cardio) R ATE: tachycardic RHYTHM: regular rhythm OTHER: No lower extremity pitting edema bilaterally, no calf tenderness, negative Homans' sign GI: COMMON NORMALS: Normal to inspection, nondistended, normoactive bowel sounds present, Soft to palpation, non-tender and no masses PALPATION: Yes Soft to palpation Extremity: COMMON NORMALS: normal to inspection and full ROM Neuro: COMMON NORMALS: patient oriented x3, moves all extremities and no focal motor deficits SENSORIUM/ORIENTATION: Yes oriented to person, Yes oriented to place and Yes oriented to time Psych: COMMON NORMALS: mental status grossly normal, Normal thought process present and cooperative THOUGHT PROCESS: Normal thought process present Skin: COMMON NORMALS: no rashes or lesions noted and no wounds GENERAL SKIN EXAM: no rashes or lesions noted Course 2 Reevaluation(s): Reevaluation #1: Patient reevaluated, findings of predominantly right lower lobe pneumonia on CT scan without pulmonary embolism, she is currently saturating approximately 89 to 91% on 6 L nasal cannula, mental status good, heart rate improved down to 91, blood pressure improved, will leave on 6 L nasal cannula now however if pulse oxygen drops further would likely transition to heated high flow given no hypercapnia, plan to admit for management of pneumonia Time: 20:45 Consultations: Consultation #1: Spoke with Dr. Allan of hospitalist medicine who will admit the patient to icu Time: 21:10 Vital Signs: Vital signs: Vital Signs Temperature 99.5 F 05/06/25 18:26 Pulse Rate 90 05/06/25 20:30 Respiratory Rate 16 05/06/25 20:30 Blood Pressure 146/98 05/06/25 20:30 Pulse Oximetry 90 05/06/25 20:30 Oxygen Delivery Me thod Nasal Cannula 05/06/25 20:30 Oxygen Flow Rate 6 05/06/25 20:30 MDM - Weakness Medical Decision Making 75-year-old female history of lung cancer resected in 2016 with bilateral lobectomy, status post chemoradiation, throat cancer in 2017, recently admitted for severe pneumonia for which she has had 3 episodes this year, previously left lower and most recent admission, post admission had a PET scan showing new concerning FDG avid lymphadenopathy and possible endobronchial lesion in the left lower lobe, pending further intervention with IR versus pulmonology guided biopsy following with pulmonology here but also with oncology at [facility], presenting with recurrent weakness and hypoxia with persistent chronic cough, on arrival patient was hypotensive and hypoxic but without acute respiratory distress, afebrile, asymmetric rhonchi to the right side suspect right sided pneumonia, plan for sepsis evaluation fluids broad-spectrum antibiotics cefepime and azithromycin, CTA chest to assess for postobstructive pneumonia or worsening lesions, rule out pulmonary embolism, anticipate admission with level of care to be determined based on severity of pneumonia and patient's response to treatment. Currently saturating around 91 to 92% on 3 L nasal cannula, no indication for BiPAP, not hypercapnic on blood gases no indication for intubation at this time Differential Diagnosis Likely sepsis and dehydration (consider pneumonia, PE, worsening malignancy)) Lab Data Workup significant for significant leukocytosis to 25, moderate hyponatremia 126, mild acidosis without shalini acidemia or hypercapnia, normal kidney function, mildly elevated D-dimer 2.84, normal INR, 05/06/25 18:50 05/06/25 18:50 Radiology Impressions Chest X-Ray 05/06/25 18:45 IMPRESSION: New opacities in the periphery of the right upper and right lower lobes as well as near complete resolution of prior opacity in the left lung base findings could be related to multilobar pneumonia atypical viral pneumonia could be consideration in the appropriate scenario correlate and follow-up as indicated. Chest CTA 05/06/25 18:51 IMPRESSION: 1. No acute or chronic pulmonary embolism or aneurysm. 2. Findings of emphysema. 3. Patient is status post right upper and right middle lobectomies with changes in the right lower lobe compatible with a endobronchial pattern of airspace disease either related to infectious bronchitis or developing infectious bronchopneumonia correlate and follow-up as indicated. 4. Post cholecystectomy status. COMMENTS: The presence of pulmonary emphysema on CT is an independent risk factor for lung cancer. In the absence of a history or active diagnosis of lung cancer, it is recommended that this patient with emphysema be evaluated for enrollment in a low dose CT lung cancer screening program. Laboratory Results WBC 25.46 10^3/uL (3.29-11.43) H 05/06/25 18:50 RBC 4.01 10^6/uL (3.85-5.65) 05/06/25 18:50 Hgb 10.40 g/dL (11.27-16.99) L 05/06/25 18:50 Hct 31.9 % (36-47) L 05/06/25 18:50 MCV 79.6 fl (85-98) L 05/06/25 18:50 MCH 25.9 pg (27-33) L 05/06/25 18:50 MCHC 32.6 g/dL (30-55) 05/06/25 18:50 RDW 17.8 % (12.1-15.1) H 05/06/25 18:50 Plt Count 351 10^3/cmm (157-399) 05/06/25 18:50 MPV 8.9 fL (7.4-10.4) 05/06/25 18:50 Neut % (Auto) 87.6 % 05/06/25 18:50 Lymph % (Auto) 2.7 % 05/06/25 18:50 [place] % (Auto) 8.5 % 05/06/25 18:50 Eos % (Auto) 0.2 % 05/06/25 18:50 Baso % (Auto) 0.3 % 05/06/25 18:50 Neut # (Auto) 22.30 10^3/uL (1.8-7.7) H 05/06/25 18:50 Lymph # (Auto) 0.7 10^3/uL (0.8-4.8) L 05/06/25 18:50 [place] # (Auto) 2.2 10^3/uL (0.2-0.9) H 05/06/25 18:50 Eos # (Auto) 0.0 10^3/uL (0.0-0.8) 05/06/25 18:50 Baso # (Auto) 0.1 10^3/uL (0.0-0.1) 05/06/25 18:50 Nucleated RBC % (auto) 0 % 05/06/25 18:50 Nucleated RBCs # 0.0 /100WBC 05/06/25 18:50 PT 13.70 SECONDS (12.1-14.9) 05/06/25 18:50 INR 0.98 (0.8-1.2) 05/06/25 18:50 APTT 27.0 SECONDS (23.9-36.7) 05/06/25 18:50 D-Dimer 0.84 ug/mLFEU (0-0.59) H 05/06/25 18:50 Specimen Type Venous 05/06/25 19: Tyree Test Pos 05/06/25 19:01 VBG pH 7.39 (7.32-7.42) 05/06/25 19:01 VBG pCO2 44.1 mmHg (41-51) 05/06/25 19: VBG pO2 39.4 mmHg (25-40) 05/06/25 19: VBG HCO3 26.7 mmol/L (24-28) 05/06/25 19: VBG Base Excess 1.4 mmol/L (-3.0-3.0) 05/06/25 19: VBG Hematocrit 33.9 % (37-47) L 05/06/25 19:01 O2 Delivery Device Room air 05/06/25 19: FiO2 21.0 % 05/06/25 19:01 Front End Developer Designer ID [email or web address] 05/06/25 19:01 Sodium 126 mmol/L (136-145) L 05/06/25 18:50 Potassium 4.2 mmol/L (3.5-5.1) 05/06/25 18:50 Chloride 87 mmol/L (98-107) L 05/06/25 18:50 Carbon Dioxide 20 mmol/L (22-29) L 05/06/25 18:50 Anion Gap 23.2 (5-19) H 05/06/25 18:50 BUN 12 mg/dL (8-23) 05/06/25 18:50 Creatinine 0.7 mg/dL (0.5-0.9) 05/06/25 18:50 GFR Calculation Not Reportable 05/06/25 18:50 Glucose 106 mg/dL (65-115) 05/06/25 18:50 Calculated Osmolality 262 mOsm/kg (285-295) L 05/06/25 18:50 Lactic Acid 0.9 mmol/L (0.5-2.2) 05/06/25 18:50 Calcium 8.9 mg/dL (8.5-10.5) 05/06/25 18:50 Magnesium 1.8 mg/dL (1.7-2.3) 05/06/25 18:50 Total Bilirubin 0.5 mg/dL (0.15-1.2) 05/06/25 18:50 AST 19 U/L (0-32) 05/06/25 18:50 ALT 12 U/L (0-33) 05/06/25 18:50 Alkaline Phosphatase 113 U/L (35-105) H 05/06/25 18:50 Total Protein 6.6 g/dL (6.6-8.7) 05/06/25 18:50 Albumin 4.1 g/dL (3.5-5.2) 05/06/25 18:50 Globulin 2.5 g/dL (1.3-4.6) 05/06/25 18:50 Procalcitonin 0.19 ng/mL (0-0.5) 05/06/25 18:50 Influenza A (PCR) Negative (Negative) 05/06/25 20:15 Influenza Type B (PCR) Negative (Negative) 05/06/25 20:15 RSV (PCR) Negative (Negative) 05/06/25 20:15 SARS-CoV-2 (PCR) Negative (Negative) 05/06/25 20:15 All radiology interpretation(s) finalized by discharge ED provider radiology interpretation(s): Chest x-ray showing right lower lobe pneumonia, CTA also showing right lower lobe pneumonia without pulmonary embolism EKG Data EKG 1: I personally reviewed and interpreted this EKG as follows: EKG interpretation date: 05/06/25 EKG interpretation time: 18:49 Interpretation: Sinus rhythm at 96 bpm, no ectopy, normal axis, QTc 392 ms, no STEMI Critical Care Time 2 Critical Care Time: Total Critical Care Time: 40 Attestation: The high probability of a clinically significant, sudden or life threatening deterioration of the patient's respiratory and cardiovascular system(s) required my full and direct attention, intervention and personal management. The critical care time is as shown. This time is in addition to time spent performing any reported procedures but includes the following: [x] Data and vital sign review and interpretation [x] Patient assessment, examination and intervention [x] Documentation [x] Medication orders and management Discharge Plan Discharge Patient Disposition: Admitted As Inpatient Clinical Impression: Acute hypoxic respiratory failure Pneumonia Qualifiers: Pneumonia type: due to unspecified organism Laterality: right Lung location: l ower lobe of lung Qualified Code(s): J18.9 - Pneumonia, unspecified organism Sepsis Qualifiers: Sepsis type: sepsis due to unspecified organism Sepsis acute organ dysfunction status: with acute organ dysfunction Severe sepsis acute organ dysfunction type: acute respiratory failure Acute respiratory failure type: with hypoxia Severe sepsis shock status: without septic shock Qualified Code(s): A41.9 - Sepsis, unspecified organism Condition: Fair Coding Level of Care Code ED Power House Engineer for Krystle Avendano
[2025-05-06] MEDS: iohexol 350 mg/mL 500 mL Btl (per mL) IV (20:08)
[2025-05-06 20:30] VITALS: BP 146/98; PULSE 90; RESP 16; O2SAT 90
[2025-05-06 21:04] LABS: Respiratory Syncytial Virus Ce NEGATIVE (Negative); SARS-CoV-2 PCR NEGATIVE (Negative)
[2025-05-06 21:15] LABS: Glucose Urine UA Negative (Normal); Nitrate Urine Negative (Negative); Specific Gravity, Urine 1.018 (1.005-1.030)
[2025-05-06 21:19] LABS: Add Urine Microscopic? YES
[2025-05-06 21:20] VITALS: BP 166/94; PULSE 86; RESP 18; O2SAT 93
--- NOTE | 2025-05-06 23:21 | PM.HP ---
Providers/Chief Complaint Admitting Physician: Trevin Allan MD Primary Care Provider: David Walker Chief Complaint: Weakness History of Present Illness Teri Graham is a 75 year old female comes in with a fall in her bedroom with bruising to left dorsal hand but no other injury. She think she was down for 30 minutes and was found by her kids Reta and Jessica both daughters were present at bedside. Patient was brought to the emergency department where she was found to be hypotensive with blood pressure initially 83/49 and received 2 L saline bolus. Patient reports shortness of breath and weakness. She had been here with left lower lobe pneumonia February 2025 discharged on the . She had ESBL E. coli treated with additional ertapenem for another 7 days home IV infusion by her daughters following discharge. Patient did okay after that except had an episode of syncope seen at [facility] and discharged home. She did again okay until she fell today. She has had a rattling cough and weakness for about 2 days. Cough is productive of green and miramontes phlegm. She lost 4 pounds since February patient sees Dr. Berrios oncology at [place]. She is scheduled to have left supraclavicular lymph node biopsy on the and bronchoscopy biopsy of lung nodules on Tuesday the . Patient has had a history of right upper lung and right middle lobe lobectomy 2015 and [place] followed by head and neck cancer in 2016. She had radiation and chemo but no resection for the head and neck cancer. Patient had a subsequent stroke in 2000 but had full recovery. This was attributed to right carotid disease not critical requiring surgery but complicated by the radiation. Patient has been seeing Dr. Zaldivar here post last hospitalization for pneumonia who ordered a PET scan which discovered the left supraclavicular node and right lung nodules. Patient was scheduled for EBUS but has elected to follow-up with her oncologist in [place] before proceeding with that here. Review of Systems Narrative: General no fevers chills she has had 4 pounds weight loss since February Cardiovascular no chest pain palpitations edema Respiratory positive for shortness of breath but is not usually on oxygen at home she has been cough thing up green and miramontes phlegm. 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 Neuro positive for stroke 2020 full recovery Heme negative for clots in legs or lungs musculoskeletal denies pain at this time reports her sole injury from her fall as left dorsal hand bruising Medications/Allergies Home Medications ?Medication ?Instructions ?Recorded ?Confirmed ?Last Taken ?Type albuterol sulfate 2.5 mg/3 mL 2.5 mg continuous nebulization Q6H 03/02/25 04/23/25 04/19/25 09:00 History (0.083 %) solution for nebulization PRN Shortness Of Breath atorvastatin 40 mg tablet 40 mg PO BEDTIME 03/02/25 04/23/25 04/18/25 21:00 History levothyroxine 75 mcg tablet 75 mcg PO QAM 03/02/25 04/23/25 04/19/25 05:00 History mometasone-formoterol HFA 200 2 puff inhalation BID 03/02/25 04/23/25 04/19/25 05:00 History mcg-5 mcg/actuation aerosol inhaler (Dulera) sertraline 100 mg tablet 100 mg PO DAILY 03/02/25 04/23/25 04/19/25 05:00 History pantoprazole 40 mg tablet,delayed 40 mg PO DAILY 03/19/25 04/23/25 Unknown History release (Protonix) bisacodyl 5 mg tablet,delayed 5 mg PO DAILY PRN Abdominal 04/19/25 04/23/25 04/19/25 05:00 History release (Dulcolax (bisacodyl)) Discomfort clopidogrel 75 mg tablet 75 mg PO DAILY 04/19/25 04/23/25 04/19/25 05:00 History omeprazole 20 mg capsule,delayed 20 mg PO DAILY 04/19/25 04/23/25 04/19/25 05:00 History release Allergies Allergy/AdvReac Type Severity Reaction Status Date / Time Iodinated Contrast Media Allergy Unknown Verified 04/23/25 08:14 PFSH Acute PFSH: Medical History (Updated 05/06/25 @ 23:48 by Trevin Allan MD) H/O adenomatous polyp of colon 2016: colon polyps , recommended 3 year follow up COPD exacerbation Anxiety Malignant neoplasm of unspecified part of unspecified bronchus or lung Herpes zoster without complication Cancer, epiglottis Cervical cancer Vitamin D deficiency Claustrophobia Feeding by G-tube Encounter for colonoscopy due to history of colonic polyp Surgical History H/O colonoscopy 08/2019: normal , f/u 10 years History of tubal ligation History of neck surgery Status post lung surgery History of laparoscopic cholecystectomy Family History Other Tuberculosis Social History (Updated 05/06/25 @ 23:37 by Trevin Allan MD) Smoking and tobacco/nicotine status: former use of tobacco/nicotine (quit in 2016 smoked 2ppd) Quit status (tobacco/nicotine): has quit using Year quit tobacco: 2016 Former quit date comment: 2 ppd X 48 years Second hand smoke exposure: No Alcohol intake: former Year of sobriety/quit date alcohol: 2016 Former alcohol use details: Was drinking 3-4 beers a day until 2016 minimal since then Substance/Drug Use: never Additional social history: Patient wants full CODE STATUS as discussed today with myself Trevin Allan MD and daughters on 05/06/2025 Lives independently: Yes Household members: none Previous occupational history: Work in [employer] at [employer] Vitals/I&O/Wt Last Vital Signs Temp 99.5 F 05/06/25 18:26 Pulse 86 05/06/25 21:20 Resp 18 05/06/25 21:20 BP 166/94 05/06/25 21:20 Pulse Ox 93 05/06/25 21:20 O2 Del Method Nasal Cannula 05/06/25 21:20 O2 Flow Rate 6 05/06/25 21:20 Weight last 48 hrs Weight 58.513 kg Physical Exam Narrative: General well-developed well-nourished female in no acute cardiopulmonary stress Neuro speech is clear she is reasonably good historian but most of is taken from her daughters present bedside moves all extremities symmetrically she is oriented to person place and history CV regular rate and rhythm Lungs rhonchi and diminished air movement on the right side improved with cough. After that scattered rhonchi bilaterally with good air movement Abdomen positive bowel tones soft nontender Calves no tenderness cords pretrip edema Musculoskeletal she has a left supraclavicular node palpable but also tissue thickening and firmness presumably from radiation making exam difficult Oropharynx clear Mallampati 1 Skin warm and dry Data 05/06/25 18:50 05/06/25 18:50 Micro: Microbiology 05/06/25 19:11 Blood Culture - Preliminary Blood SPECIMEN COLLECTED 05/06/25 19:01 Blood Culture - Preliminary Blood SPECIMEN COLLECTED A&P Assessment and plan 1. Acute hypoxic respiratory failure: Continue with oxygen. Start guaifenesin and incentive spirometry 2. Pneumonia: Patient had a history of left lower lobe pneumonia now right lower lobe pneumonia with history of change in phlegm after she eats. She has had a history of radiation to the neck. Last admission was ESBL E. coli and so I am going to treat her for ESBL E. coli as a possibility of aspiration pneumonia with meropenem 500 mg every 8 hours. She has already received cefepime and azithromycin in the emergency department. White count elevated 25,000 will follow again in the morning 3. Sepsis: Patient was hypotensive on admission and has received appropriate fluid bolus and blood pressure normalized. 4. Hyponatremia: Attributable to pneumonia and/or lung cancer possible SIADH. Patient received her fluid boluses starting about the time or just before her urine sample was run in the lab. I am going to add a urine sodium to that lab. 5. Lung cancer: History of lung cancer and head neck cancer daughter states there were 2 separate primaries I do not have the path report 6. Mediastinal lymphadenopathy: Left supraclavicular lymph node and mediastinal or lung nodule biopsies are pending next week PDMP PDMP Reviewed: Not Reviewed Attestations Medical Necessity Statement*: Patient is admitted to the hospital with pneumonia, sepsis and moderate hyponatremia much improved after fluid boluses and additional antibiotics. She was slated for the ICU but will be okay for medical floor and is expected to require greater than 2 midnights Coding Level of Care Code 74548 Diagnoses Acute hypoxic respiratory failure J96.01 Pneumonia J18.9 Sepsis A41.9 Hyponatremia E87.1 Lung cancer C34.90 Mediastinal lymphadenopathy R59.0 Time Spent (min) 70
[2025-05-06 23:23] VITALS: BP 132/97; PULSE 78; RESP 18; O2SAT 95
[2025-05-07] VITALS (16 sets, daily range): BP systolic 101–156; BP diastolic 74–88; PULSE 69–100; RESP 14–20; TEMP 36.4–36.6; O2SAT 90–97; BMI 22.1
[2025-05-07] MEDS: sodium chlor 0.9% + KCl 20 mEq 20 MEQ/1,000 ML BAG 100 MEQ IV ×2 (00:36→09:33)
[2025-05-07 05:14] LABS: Hematocrit 29.7 % (36-47); Hemoglobin 9.40 g/dL (11.27-16.99); Mean Corpuscular HGB Conc 31.6 g/dL (30-55); Mean Corpuscular Hemoglobin 25.3 pg (27-33); Mean Corpuscular Volume 79.8 fl (85-98); Nucleated Red Blood Cells % 0 %; Platelet Count 297 10^3/cmm (157-399); Red Blood Count 3.72 10^6/uL (3.85-5.65); White Blood Count 15.55 10^3/uL (3.29-11.43)
[2025-05-07 05:42] LABS: Anion Gap 16.7 (5-19); Blood Urea Nitrogen 12 mg/dL (8-23); Calcium 8.3 mg/dL (8.5-10.5); Carbon Dioxide 21 mmol/L (22-29); Chloride 99 mmol/L (98-107); Creatinine Clr Calc Pharmacy 55.5907; Glucose 162 mg/dL (65-115); Osmolality Calculated 279 mOsm/kg (285-295); Potassium 3.7 mmol/L (3.5-5.1); Sodium 133 mmol/L (136-145); Thyroid Stimulating Hormone 0.63 uIU/mL (0.27-4.20)
[2025-05-07] MEDS: potassium phosphate (mMol PO4) 15 MMOL in sodium chloride 0.9% (100 ml) 100 ML 47 MMOL IV (08:30)
[2025-05-07 09:09] LABS: Urine Random Sodium 43 mmol/L
--- NOTE | 2025-05-07 10:09 | PC.CHAP ---
Pastoral Care Encounter/Spiritual Assessment Type of Contact [] Declined scheduling coordinator visit [] Patient/Family/Request visit [] Outpatient visit [] Follow-up visit [] Physician referral [] Code/Alert [x] Routine visit [] Staff referral [] Actively dying [] Patient sleeping [] Family support [] [] Out of room [] Palliative care [] [] Receiving care in room [] Pre-surgical visit [] Trauma [] Long length of stay [] ICU visit [] Other: Relational/Emotional Strength [x] Patient feels connected with others/family/visitors/staff [] Distress [] Loneliness/isolation [] Abandonment Spirituality of Patient [x] Person of Sally [] Attends Methodist of their Sally [x [] There are Spiritual issues to be addressed Pre Algebra Teacher Interventions [x] Prayer [x] Active listening [x] Non-anxious presence [x] Spiritual/emotional support [] Crisis/trauma care [] Spiritual counseling [] Bereavement support [] Provided bereavement packet [] Provided Bible/devotional materials [] Provided toy/stuffed animal, coloring book to patient or family member [] Provided Communion [] Anointing/[place] [] Salvation [x] Completed spiritual assessment [] Other: Impact on Illness or Injury [] Angry [] Fearful [] Anxious [] Often cries [] Exhaustion [] Unable to work [] Unable to attend restoration [] Unable to walk/stand [] Unable to read [] Unable to drive [] Unable to eat/drink [] Unable to sleep [] Unable to be with family [] Patient intubated [] Other: Summary Time spent with patient 5 min
--- NOTE | 2025-05-07 13:58 | PM.PN ---
Subjective Subjective: The patient was seen in the morning and she was feeling much better No acute concerns voiced by the patient Vitals/I&O/Wt Last Vital Signs Temp 97.6 F 05/07/25 12:00 Pulse 100 05/07/25 13:18 Resp 16 05/07/25 12:00 BP 101/74 05/07/25 12:00 Pulse Ox 91 05/07/25 12:00 O2 Del Method Nasal Cannula 05/07/25 12:00 O2 Flow Rate 4 05/07/25 11:48 05/06/25 05/07/25 05/07/25 22:59 06:59 14:59 Intake Total 1240 / 1240 Balance 1240 / 1240 Weight last 48 hrs Weight 58.513 kg Weight 58.513 kg Weight 58.513 kg Physical Exam Narrative: General: Alert oriented x3, patient seen lying comfortably without any shortness of breath HEENT: Normocephalic, atraumatic, EOMI, breathing through nasal cannula 2 to 3 L per minute and saturating above 90% Cardio: Regular rate rhythm, normal S1-S2, no murmurs rubs gallops, JVD normal Respiratory: Good bilateral air entry and normal vesicular breathing, no wheezes or any respiratory stridor or crackles appreciated GI: Abdomen soft, nontender, nondistended, normoactive bowel sounds present all 4 quadrants, Neuro: Cranial nerves II to XII intact, strength 5/5, sensation 5/5, no gross neurological deficit Behavior: Appropriate and cooperative Extremities: Mild trace edema Skin: Gross unremarkable exam Data 05/07/25 04:25 05/07/25 04:25 Micro: Microbiology 05/06/25 20:27 Sputum Culture - Preliminary Sputum - Expectorated Sputum 05/06/25 19:11 Blood Culture - Preliminary Blood SPECIMEN COLLECTED 05/06/25 19:01 Blood Culture - Preliminary Blood SPECIMEN COLLECTED A&P Assessment and plan 1. Acute hypoxic respiratory failure: Continue with oxygen. Start guaifenesin and incentive spirometry 2. Pneumonia: Patient had a history of left lower lobe pneumonia now right lower lobe pneumonia with history of change in phlegm after she eats. She has had a history of radiation to the neck. Last admission was ESBL E. coli admitted as a case of ESBL E. coli as a possibility of aspiration pneumonia Continue meropenem 500 mg every 8 hours. She has already received cefepime and azithromycin in the emergency department. WBC trending down Follow sputum and blood cultures Send MRSA considering patient had recent hospital admission and carries risk for MRSA 3. Hyponatremia: Attributable to pneumonia and/or lung cancer possible SIADH. Patient received her fluid boluses and sodium level improved There could be element of SIADH and dehydration as well, continue to monitor sodium levels and hold fluids 4. Anemia: Patient had episode anemia in February that required 1 PRBC transfusion. As per the documentation she had evidence of her iron deficiency anemia. In that admission her Plavix was held and she was continued on aspirin without any further deterioration or blood loss and was followed by the surgery as outpatient. 5. Sepsis: Fluid responsive currently getting better Follow cultures report Continue broad-spectrum antibiotics with meropenem And add vancomycin Hold vancomycin if MRSA negative 6. CVA (cerebral vascular accident): Patient has remote history of CVA which is in the retrospective notes and was kept on clopidogrel. Her clopidogrel was held since the patient had significant anemia in February and was continued on aspirin Continued on aspirin at the moment and monitor CBC 7. Lung cancer: History of lung cancer and head neck cancer daughter states there were 2 separate primaries To follow-up with the oncology/pulmonology as outpatient Continue for any monitor of hypoxemia or respiratory failure 8. Mediastinal lymphadenopathy: Left supraclavicular lymph node and mediastinal or lung nodule biopsies are pending next week as per the documentation 9. Serum phosphorus decreased: Replacement provided with phosphate tablets PDMP PDMP Reviewed: Not Reviewed Attestations Medical Necessity Statement*: The patient will require more than 2 midnights for the management of her hypoxemic respiratory failure secondary to pneumonia Time Spent in Patient Care: 16 - 35 minutes (>than 50% of time spent in counselling and/or direct pt care on unit). Other Attestations: Patient condition has been discussed at length with the patient/family, I have independently reviewed the chart labs imaging and diagnostics and EKG. the goals of care and code status with the patient/family/NOK/legal agency sales representative, and documented accordingly. The patient/family has been informed about the current condition and further plan of care. Agreed with the plan of care and understood without any language barrier. This documentation was created by [employer] drag out worker software. Every effort was made to ensure accuracy of drag out worker. Any obvious errors or omissions should be clarified with the author of the document. Coding Level of Care Code 23843 Diagnoses Acute hypoxic respiratory failure J96.01 Pneumonia J18.9 Laterality: right Lung location: lower lobe of lung Pneumonia type: due to unspecified organism Hyponatremia E87.1 Anemia D64.9 Sepsis A41.9; R65.20; J96.01 Acute respiratory failure type: with hypoxia Sepsis acute organ dysfunction status: with acute organ dysfunction Sepsis type: sepsis due to unspecified organism Severe sepsis acute organ dysfunction type: acute respiratory failure Severe sepsis shock status: without septic shock CVA (cerebral vascular accident) I63.9 Lung cancer C34.90 Mediastinal lymphadenopathy R59.0 Serum phosphorus decreased E83.39
[2025-05-07] MEDS: vancomycin 1,750 MG/350 ML PIGGYBACK 175 MG IV (14:34)
[2025-05-07 15:55] LABS: MRSA PCR OZH (swab) NOT DETECTED (Not Detecte)
--- NOTE | 2025-05-07 20:20 | PHA.VACGOAL ---
Vancomycin Goal - Therapy Current therapy:: Meropenem Day of therpy:: Day []of [] . Actual body weight (kg): 129 lb - Data Labs: WBC 15.55 10^3/uL (3.29-11.43) H 05/07/25 04:25 RBC 3.72 10^6/uL (3.85-5.65) L 05/07/25 04:25 Hgb 9.40 g/dL (11.27-16.99) L 05/07/25 04:25 Hct 29.7 % (36-47) L 05/07/25 04:25 MCV 79.8 fl (85-98) L 05/07/25 04:25 MCH 25.3 pg (27-33) L 05/07/25 04:25 MCHC 31.6 g/dL (30-55) 05/07/25 04:25 RDW 17.6 % (12.1-15.1) H 05/07/25 04:25 Sodium 133 mmol/L (136-145) L 05/07/25 04:25 Potassium 3.7 mmol/L (3.5-5.1) 05/07/25 04:25 Chloride 99 mmol/L (98-107) 05/07/25 04:25 Carbon Dioxide 21 mmol/L (22-29) L 05/07/25 04:25 Anion Gap 16.7 (5-19) 05/07/25 04:25 BUN 12 mg/dL (8-23) 05/07/25 04:25 Creatinine 0.5 mg/dL (0.5-0.9) 05/07/25 04:25 GFR Calculation Not Reportable 05/07/25 04:25 Drug administration history:: Medications Vancomycin HCl 500 mg/ Sodium (Chloride) 100 mls @ 200 mls/hr IV Q12H NIMA Meropenem (Meropenem 500 Mg Sdv) 500 mg IVP Q8H NIMA; Protocol Last Admin: 05/07/25 15:40 Dose: 500 mg Discontinued Medications Vancomycin HCl (Vancocin) 1,750 mg in 350 mls @ 175 mls/hr IV ONCE ONE Stop: 05/07/25 16:29 Last Admin: 05/07/25 16:48 Dose: Infused Treatment plan:: new consult Regimen:: GAVE LOADING DOSE OF 1750 MG AND MAINTENANCE OF 500 MG Q12H. WILL CONTINUE TO MONITOR DAILY AND PLAN TO OBTAIN TROUGH ONCE LEVEL REACHES STEADY STATE.
[2025-05-08] VITALS (9 sets, daily range): BP systolic 108–159; BP diastolic 67–90; PULSE 77–91; RESP 16–19; TEMP 36.4–37.1; O2SAT 87–98; BMI 21.7
[2025-05-08] MEDS: vancomycin 500 MG in sodium chloride 0.9% (plus) 100 ML 200 MG IV (03:37)
--- NOTE | 2025-05-08 12:06 | PC.SOCIAL ---
IMM Updated Updated pt on IMM. No questions voiced. Provided pt a copy. Initialed, dated, & timed a copy & placed in chart.
--- NOTE | 2025-05-08 13:21 | P.DS_ITS ---
Discharge Providers Date of Admission: 05/06/25 21:08 Date of Discharge: May 08, 2025 Attending Provider at Admission: Trevin Allan MD Attending Provider at Discharge: Edgard Funes MD Primary Care Provider: David Walker Diagnoses at Discharge Discharge Diagnosis 1. Acute hypoxic respiratory failure: 2. Pneumonia: 3. Hyponatremia: 4. Anemia: 5. Sepsis: 6. CVA (cerebral vascular accident): 7. Lung cancer: 8. Mediastinal lymphadenopathy: 9. Serum phosphorus decreased: Reason for Visit Reason for Visit: Weakness Brief History: As per the previous retrospective notes and the patient: Teri Graham is a 75 year old female comes in with a fall in her bedroom with bruising to left dorsal hand but no other injury. She think she was down for 30 minutes and was found by her kids Reta and Jessica both daughters were present at bedside. Patient was brought to the emergency department where she was found to be hypotensive with blood pressure initially 83/49 and received 2 L saline bolus. Patient reports shortness of breath and weakness. She had been here with left lower lobe pneumonia February 2025 discharged on the . She had ESBL E. coli in the sputum treated with additional ertapenem for another 7 days home IV infusion by her daughters following discharge. Patient did okay after that except had an episode of syncope seen at [facility] and discharged home. She did again okay until she fell today. She has had a rattling cough and weakness for about 2 days. Cough is productive of green and miramnotes phlegm. She lost 4 pounds since February patient sees Dr. Berrios oncology at [place]. She is scheduled to have left supraclavicular lymph node biopsy on and bronchoscopy biopsy of lung nodules on Tuesday the . Patient has had a history of right upper lung and right middle lobe lobectomy 2016 and [place] followed by head and neck cancer in 2017. She had radiation and chemo but no resection for the head and neck cancer. Patient had a subsequent stroke in 2000 but had full recovery. This was attributed to right carotid disease not critica l requiring surgery but complicated by the radiation. As per the previous retrospective note/admission in February 2025 the patient has anemia and she was taking clopidogrel and aspirin. In the documentation it was mentioned that she did not report any history of cardiac stenting, CABG, peripheral artery disease however she reported having remote history of stroke and currently was not having any residual weakness. Therefore considering her anemia she was kept on aspirin and clopidogrel was held. Patient has been seeing Dr. Zaldivar here post last hospitalization for pneumonia who ordered a PET scan which discovered the left supraclavicular node and right lung nodules. Patient was scheduled for EBUS but has elected to follow-up with her oncologist in [place] before proceeding with that here. Hospital Course Hospital Course During her hospital stay the patient was admitted as a case of severe sepsis/s eptic shock responsive to fluids,Cultures were sent and did not grow anything. She was treated with meropenem and vancomycin MRSA was sent which was not detected. Therefore based on the blood cultures patient improvement antibiotics were tailored and to be discharged on levofloxacin to complete the course postdischarge. She had low phosphorus and was replacement. 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 the patient was also requiring oxygen therefore she was evaluated for home oxygen and qualified for 3 L to be sent home and to follow-up with financial analyst and primary care doctor at discharge. Her medications were reconciled after retrospective review of her notes and patient comorbid conditions. Clinical stability before discharge was established. Patient condition has been discussed at length with the patient/family, I have independently reviewed the chart labs imaging/diagnostics/EKG. the goals of care and code status with the patient/family/NOK/legal account manager sales representative, and documented accordingly. The patient/family has been informed about the current condition and further plan of care. Agreed with the plan of care and understood without any language barrier. Every effort was made to ensure accuracy of supervisor aircraft maintenance. Any obvious errors o r omissions should be clarified with the author of the document. Physical Exam Narrative: General: Alert oriented x3, patient seen lying comfortably without any shortness of breath HEENT: Normocephalic, atraumatic, EOMI, breathing through nasal cannula 2 to 3 L per minute and saturating above 90% Cardio: Regular rate rhythm, normal S1-S2, no murmurs rubs gallops, JVD normal Respiratory: Good bilateral air entry and normal vesicular breathing, very mild wheeze at the lower zone however good air entry and no stridor GI: Abdomen soft, nontender, nondistended, normoactive bowel sounds present all 4 quadrants, Neuro: Cranial nerves II to XII intact, strength 5/5, sensation 5/5, no gross neurological deficit Behavior: Appropriate and cooperative Extremities: Mild trace edema Skin: Gross unremarkable exam Discharge Data Studies Completed and Pending Completed Studies During Hospitalization Category Date Time Status CT angio chest PE protcl [id number] Stat Cat Scan 05/06/25 18:51 Completed XR chest 1V portable [id number] Stat Exams 05/06/25 18:45 Completed Pending at discharge Category Date Time Status Blood Culture Stat Lab 05/06/25 19:11 Results Sputum Culture Stat Lab 05/06/25 20:27 Results Venous Blood Gas Stat Lab 05/06/25 19:01 Results Radiology Impressions Chest X-Ray 05/06/25 18:45 IMPRESSION: New opacities in the periphery of the right upper and right lower lobes as well as near complete resolution of prior opacity in the left lung base findings could be related to multilobar pneumonia atypical viral pneumonia could be consideration in the appropriate scenario correlate and follow-up as indicated. Chest CTA 05/06/25 18:51 IMPRESSION: 1. No acute or chronic pulmonary embolism or aneurysm. 2. Findings of emphysema. 3. Patient is status post right upper and right middle lobectomies with changes in the right lower lobe compatible with a endobronchial pattern of airspace disease either related to infectious bronchitis or developing infectious bronchopneumonia correlate and follow-up as indicated. 4. Post cholecystectomy status. COMMENTS: The presence of pulmonary emphysema on CT is an independent risk factor for lung cancer. In the absence of a history or active diagnosis of lung cancer, it is recommended that this patient with emphysema be evaluated for enrollment in a low dose CT lung cancer screening program. Laboratory Results WBC 15.55 10^3/uL (3.29-11.43) H 05/07/25 04:25 RBC 3.72 10^6/uL (3.85-5.65) L 05/07/25 04:25 Hgb 9.40 g/dL (11.27-16.99) L 05/07/25 04:25 Hct 29.7 % (36-47) L 05/07/25 04:25 MCV 79.8 fl (85-98) L 05/07/25 04:25 MCH 25.3 pg (27-33) L 05/07/25 04:25 MCHC 31.6 g/dL (30-55) 05/07/25 04:25 RDW 17.6 % (12.1-15.1) H 05/07/25 04:25 Plt Count 297 10^3/cmm (157-399) 05/07/25 04:25 MPV 9.0 fL (7.4-10.4) 05/07/25 04:25 Neut % (Auto) 94.6 % 05/07/25 04:25 Lymph % (Auto) 3.5 % 05/07/25 04:25 [place] % (Auto) 1.2 % 05/07/25 04:25 Eos % (Auto) 0.0 % 05/07/25 04:25 Baso % (Auto) 0.1 % 05/07/25 04:25 Neut # (Auto) 14.70 10^3/uL (1.8-7.7) H 05/07/25 04:25 Lymph # (Auto) 0.5 10^3/uL (0.8-4.8) L 05/07/25 04:25 [place] # (Auto) 0.2 10^3/uL (0.2-0.9) 05/07/25 04:25 Eos # (Auto) 0.0 10^3/uL (0.0-0.8) 05/07/25 04:25 Baso # (Auto) 0.0 10^3/uL (0.0-0.1) 05/07/25 04:25 Nucleated RBC % (auto) 0 % 05/07/25 04:25 Nucleated RBCs # 0.0 /100WBC 05/07/25 04:25 PT 13.70 SECONDS (12.1-14.9) 05/06/25 18:50 INR 0.98 (0.8-1.2) 05/06/25 18:50 APTT 27.0 SECONDS (23.9-36.7) 05/06/25 18:50 D-Dimer 0.84 ug/mLFEU (0-0.59) H 05/06/25 18:50 Specimen Type Venous 05/06/25 19:01 Tyree Test Pos 05/06/25 19:01 VBG pH 7.39 (7.32-7.42) 05/06/25 19:01 VBG pCO2 44.1 mmHg (41-51) 05/06/25 19:01 VBG pO2 39.4 mmHg (25-40) 05/06/25 19:01 VBG HCO3 26.7 mmol/L (24-28) 05/06/25 19:01 VBG Base Excess 1.4 mmol/L (-3.0-3.0) 05/06/25 19:01 VBG Hematocrit 33.9 % (37-47) L 05/06/25 19:01 O2 Delivery Device Room air 05/06/25 19:01 FiO2 21.0 % 05/06/25 19:01 Field Administrative Assistant ID [email or web address] 05/06/25 19:01 Sodium 133 mmol/L (136-145) L 05/07/25 04:25 Potassium 3.7 mmol/L (3.5-5.1) 05/07/25 04:25 Chloride 99 mmol/L (98-107) 05/07/25 04:25 Carbon Dioxide 21 mmol/L (22-29) L 05/07/25 04:25 Anion Gap 16.7 (5-19) 05/07/25 04:25 BUN 12 mg/dL (8-23) 05/07/25 04:25 Creatinine 0.5 mg/dL (0.5-0.9) 05/07/25 04:25 GFR Calculation Not Reportable 05/07/25 04:25 Glucose 162 mg/dL (65-115) H 05/07/25 04:25 Calculated Osmolality 279 mOsm/kg (285-295) L 05/07/25 04:25 Lactic Acid 0.9 mmol/L (0.5-2.2) 05/06/25 18:50 Calcium 8.3 mg/dL (8.5-10.5) L 05/07/25 04:25 Phosphorus 2.4 mg/dL (2.5-4.5) L 05/07/25 04:25 Magnesium 1.8 mg/dL (1.7-2.3) 05/06/25 18:50 Total Bilirubin 0.5 mg/dL (0.15-1.2) 05/06/25 18:50 AST 19 U/L (0-32) 05/06/25 18:50 ALT 12 U/L (0-33) 05/06/25 18:50 Alkaline Phosphatase 113 U/L (35-105) H 05/06/25 18:50 Total Protein 6.6 g/dL (6.6-8.7) 05/06/25 18:50 Albumin 4.1 g/dL (3.5-5.2) 05/06/25 18:50 Globulin 2.5 g/dL (1.3-4.6) 05/06/25 18:50 Procalcitonin 0.19 ng/mL (0-0.5) 05/06/25 18:50 TSH 0.63 uIU/mL (0.27-4.20) 05/07/25 04:25 Urine Color Yellow (Yellow) 05/06/25 20:05 Urine Appearance Cloudy (CLEAR) A 05/06/25 20: Urine pH 7.0 (5-7) 05/06/25 20:05 Ur Specific [place] 1.018 (1.005-1.030) 05/06/25 20:05 Urine Protein Negative (Negative) 05/06/25 20:05 Urine Glucose (UA) Negative (Normal) 05/06/25 20:05 Urine Ketones Negative (Negative) 05/06/25 20:05 Urine Blood Negative (Negative) 05/06/25 20:05 Urine Nitrate Negative (Negative) 05/06/25 20:05 Urine Bilirubin Negative (Negative) 05/06/25 20:05 Urine Urobilinogen 0.2 mg/dL (Negative) 05/06/25 20:05 Ur Leukocyte Esterase Negative (Negative) 05/06/25 20:05 Urine RBC 0-2 /hpf (0-2) 05/06/25 20:05 Urine WBC 0-5 /hpf (0-5) 05/06/25 20:05 Ur Squamous Epith Cells 0-5 /hpf (0-5) 05/06/25 20:05 Amorphous Sediment Not Reportable 05/06/25 20:05 Urine Bacteria None seen /hpf (NONE) 05/06/25 20:05 Hyaline Casts 0.40 /lpf 05/06/25 20:05 Ur Random Sodium 43 mmol/L 05/06/25 20:05 Nasal MRSA (PCR) Not detected (Not Detecte) 05/07/25 14:30 Influenza A (PCR) Negative (Negative) 05/06/25 20:15 Influenza Type B (PCR) Negative (Negative) 05/06/25 20:15 RSV (PCR) Negative (Negative) 05/06/25 20:15 SARS-CoV-2 (PCR) Negative (Negative) 05/06/25 20:15 Vitals Last Vital Signs Temp 97.8 F 05/08/25 11:33 Pulse 91 05/08/25 11:33 Resp 17 05/08/25 11:33 BP 129/73 05/08/25 11:33 Pulse Ox 90 05/08/25 11:33 O2 Del Method Nasal Cannula 05/08/25 11:33 O2 Flow Rate 2 05/08/25 11:11 Discharge Plan Discharge Patient Disposition: Home Condition: Stable Prescriptions: New acetaminophen 325 mg Tablet 650 mg PO TID PRN (Reason: Mild/Mod Pain Or Temp >/= 101) 5 Days Qty: 15 0RF Phospha 250 Neutral 250 mg Tablet 1 tab PO BID 2 Days Qty: 4 0RF levofloxacin 750 mg tablet 750 mg PO DAILY 7 Days Qty: 7 0RF Continued aspirin [Aspir-81] 81 mg Tablet,Delayed Release (Dr/Ec) 81 mg PO DAILY polyethylene glycol 3350 [Miralax] 17 gram/dose Powder 17 g PO DAILY atorvastatin 40 mg tablet 40 mg PO BEDTIME albuterol sulfate 2.5 mg /3 mL (0.083 %) solution for nebulization 2.5 mg continuous nebulization Q6H PRN (Reason: Shortness Of Breath) sertraline 100 mg tablet 100 mg PO DAILY levothyroxine 75 mcg tablet 75 mcg PO QAM Dulera 200-5 mcg/actuation HFA aerosol inhaler 2 puff INHALATION BID PRN (Reason: Shortness Of Breath) omeprazole 20 mg capsule,delayed release(DR/EC) 20 mg PO DAILY 90 Days Qty: 0 0RF Discontinued clopidogrel 75 mg tablet 75 mg PO DAILY Discharge Order = DC NOW: Discharge Order (Routine); Ordered 05/08/25 Ordered By: Edgard Funes Other Ambulatory Orders: DME: Oxygen (Order) Location: None Selected Ordered By: Edgard Funes Referrals: [facility] [place] [Outside] Vishnu Zaldivar MD [Physician, Interventional Pulmonology] - 7-10 days Referral Note: We have notified your physician's clinic of the need for a follow-up appointment to be scheduled. If you have not heard from them within the next 2 business days, please call them directly. David Walker [Primary Care Provider, [facility]] - 05/13/25 9:20 am Discharge Diet: Advance as tolerated Discharge Activity: Increase activity as tolerated Patient Instructions: Levofloxacin (By mouth) (Levaquin, Levaquin Leva-bernadette), Using Oxygen at Home (GEN), Pneumonia (GEN), Opioid Safety, Pneumonia Stoplight, Patient Portal & Joaquín Instructions Discharge Attestations Time Spent in Discharge Care*: greater than 30 min Specific Discharge Activities: educating patient, educating and/or supporting family/caregiver, discussing with pcp/other providers, discussing with correctional case manager/social workers/dc planners, documenting/other paperwork and evaluating patient/reviewing data Status at Discharge: Cognitive status at discharge: cognitively intact , Behavioral status at discharge: cooperative , Functional status at discharge: other assisted ambulation , Overall status at discharge: patient is back to baseline Quality Metrics Clinical Quality Measures [ No reported AMI, CVA or VTE this stay] Coding Level of Care Code 35979 Diagnoses Acute hypoxic respiratory failure J96.01 Pneumonia J18.9 Laterality: right Lung location: lower lobe of lung Pneumonia type: due to unspecified organism Hyponatremia E87.1 Anemia D64.9 Sepsis A41.9; R65.20; J96.01 Acute respiratory failure type: with hypoxia Sepsis acute organ dysfunction status: with acute organ dysfunction Sepsis type: sepsis due to unspecified organism Severe sepsis acute organ dysfunction type: acute respiratory failure Severe sepsis shock status: without septic shock CVA (cerebral vascular accident) I63.9 Lung cancer C34.90 Mediastinal lymphadenopathy R59.0 Serum phosphorus decreased E83.39
--- NOTE | 2025-05-08 13:47 | PC.NURSE ---
Discharge instructions provided to pt and her family. No questions or concerns voiced. Oxygen has been delivered from HOME. Pt to private vehicle via wheelchair with all belongings.
== END 2025-05-08 13:49 | disposition home or self-care (01) | DRG 871 ==
LOC: ER 21:15 → ICU 23:04 → MEDSURG 23:38
PROVIDERS: Admitting Provider Internal Medicine; Emergency Provider Student in an Organized Health Care Education/Training Program; PCP Family Medicine; Visit Provider Student in an Organized Health Care Education/Training Program
DX: A41.9 Sepsis, unspecified organism (principal); J18.9 Pneumonia, unspecified organism; R65.21 Severe sepsis with septic shock; J96.01 Acute respiratory failure with hypoxia; J44.0 Chronic obstructive pulmonary disease with (acute) lower respiratory infection; E22.2 Syndrome of inappropriate secretion of antidiuretic hormone; E87.20 Acidosis, unspecified; D64.9 Anemia, unspecified; R59.0 Localized enlarged lymph nodes; W18.30XA Fall on same level, unspecified, initial encounter; S60.222A Contusion of left hand, initial encounter; E83.39 Other disorders of phosphorus metabolism; E86.0 Dehydration; F40.240 Claustrophobia; F41.9 Anxiety disorder, unspecified; Z79.82 Long term (current) use of aspirin; Z86.73 Personal history of transient ischemic attack (TIA), and cerebral infarction without residual deficits; Z85.118 Personal history of other malignant neoplasm of bronchus and lung; Z90.2 Acquired absence of lung [part of]; Z87.891 Personal history of nicotine dependence; Z90.49 Acquired absence of other specified parts of digestive tract; Z85.89 Personal history of malignant neoplasm of other organs and systems; Z87.01 Personal history of pneumonia (recurrent); Z92.3 Personal history of irradiation; Z92.21 Personal history of antineoplastic chemotherapy
CPT/HCPCS: 36415; 71045; 71275; 80048; 80053; 81001; 82803; 83605; 83735; 84100; 84145; 84300; 84443; 85025; 85378; 85610; 85730; 87040; 87070; 87077; 87186; 87637; 93005; 94640; 94664; 94760; 96365; 96367; 96372; 96375; 99285; 99291; J0456; J0692; J1200; J1650; J2185; J2919; J3372; J3373; J3480; J7030; J7050; J9999